=== PATIENT | female | born 1990 | race Caucasian/White ===

== ENCOUNTER → 2020-02-03 07:41 | Outpatient (CLI) | payer OTHER, SELFPAY ==
--- NOTE | 2020-02-03 | DI.MRI.S_ITS ---
PROCEDURE: MR KNEE LT WO CON INDICATIONS: Chronic instability of knee, left knee TECHNIQUE: Noncontrast sagittal PD fast spin echo and T2 fast spin echo with fat saturation, sagittal 3-D FLASH with fat saturation; coronal T1 spin echo and PD fast spin echo with fat saturation, and axial PD fast spin echo with fat saturation through the knee. COMPARISON: None. FINDINGS: Image quality: Excellent. Menisci: The medial and lateral menisci demonstrate normal morphology and internal signal. The meniscal root ligaments appear intact. Cruciate ligaments: The anterior and posterior cruciate ligaments appear intact. Medial structures: The medial collateral ligament appears intact. The posterior oblique ligament, semimembranosus tendon insertions, oblique popliteal ligament, and meniscocapsular junction appear intact. Visualized portions of the pes anserinus tendons appear normal. No abnormal bursal fluid. Lateral structures: The lateral collateral ligament, long and short heads of the biceps femoris tendon appear intact. The popliteus tendon appears normal; the popliteofibular ligament appears intact. The posterosuperior and anteroinferior popliteomeniscal fascicles appear intact. The arcuate and fabellofibular ligaments appear intact, on either side of the lateral inferior geniculate artery. Iliotibial band appears normal. Anterior structures: The quadriceps and patellar tendons appear intact. Patellar alignment is normal. No femoral trochlear dysplasia or ventral trochlear prominence. No edema in the infrapatellar fat pad. Bones and cartilage: No bone marrow contusions or fractures. The cartilage of the medial and lateral femorotibial compartments, as well as the patellofemoral compartment, appears normal in thickness. Joint space: There is physiologic knee joint fluid. 4 mm loose body is noted in tibiotalar joint just lateral to the anterior cruciate ligament. No Bermudez's cyst. Normal appearing synovial plicae are incidentally noted. IMPRESSION: 1. Suggestion of a 4 mm loose body in lateral femoral tibial compartment just lateral to the anterior cruciate ligament. No fracture or dislocation. No marrow edema. 2. Cruciate ligaments are intact. 3. No evidence of focal meniscal tear. Dictated by: Daniel Leggett M.D. on 02/03/2020 at 10:40 Approved by: Daniel Leggett M.D. on 02/03/2020 at 10:50
== END ==
PROVIDERS: PCP Nurse Practitioner Family; Referring Provider Nurse Practitioner Family; Visit Provider Nurse Practitioner Family
DX: M25.562 Pain in left knee (principal); M23.52 Chronic instability of knee, left knee
CPT/HCPCS: 73721

== ENCOUNTER → 2020-11-03 11:04 | Outpatient (CLI) | payer SELFPAY ==
[2020-11-03 11:26] LABS: Specimen Label KIT TEST
== END ==
PROVIDERS: Referring Provider Advanced Practice Midwife; Visit Provider Advanced Practice Midwife
DX: Z34.01 Encounter for supervision of normal first pregnancy, first trimester (principal)
CPT/HCPCS: 36415

== ENCOUNTER 2021-04-11 16:27 | Outpatient (CLI) | payer OTHER, SELFPAY ==
--- NOTE | 2021-04-11 17:15 | DI.US.S_ITS ---
PROCEDURE: US ABDOMEN COMPLETE INDICATIONS: LEFT SIDE PAIN TECHNIQUE: Real-time scanning was performed of the abdominal and retroperitoneal organs, with image documentation. COMPARISON: None. FINDINGS: Liver: Prominent size. Echogenic focus in the anterior right lobe of the liver measuring 1.3 x 0.9 x 0.9 cm. Suspect a hemangioma. Gallbladder: Nondilated. No stones or sludge. Small gallbladder polyp measuring at 3.3 mm is suspected at the posterior wall. Normal gallbladder wall thickness. No pericholecystic fluid. Negative sonographic Salazar's sign. Biliary ducts: Intrahepatic bile ducts are non-dilated. Common hepatic duct measures 3.4 mm. Normal is 6-7 mm or less in diameter, or 10 mm or less post-cholecystectomy. Pancreas: Not visualized. Spleen: Spleen is normal in size and homogeneous in echotexture. Measures 11.3 cm. Kidneys: Kidneys are normal in size and echotexture. Right kidney measures 11.7 cm long; left kidney measures 10.3 cm long. No hydronephrosis or nephrolithiasis. No solid masses. Aorta: Not visualized. Iliacs: Not visualized. IVC: Intrahepatic inferior vena cava is patent. Miscellaneous: No free abdominal fluid. Gravid uterus. heart rate 135 bpm. IMPRESSION: Exam is somewhat limited due to acoustic windows. 1. No acute cholecystitis. Suspect small gallbladder polyp measuring 0.3 cm. 2. No hydronephrosis. 3. Echogenic focus in the right lobe of the liver measuring 1.3 cm. This most likely represents a benign hemangioma. This could be more definitively characterized with multiphase liver CT or MRI with IV contrast. 4. heart rate 135 bpm. Dictated by: Portillo Barcenas M.D. on 04/11/2021 at 19:41 Approved by: Portillo Barcenas M.D. on 04/11/2021 at 19:45
--- NOTE | 2021-04-11 17:43 | P.TNLD_ITS ---
Visit Information Visit Information Date of evaluation: 04/11/21 Primary OB Provider: Tamela Horner On-call OB Provider: Rukhsana Tucker Comments/Additional reasons for admission: 28 at 32 weeks and 5 days with complaints left flank pain since 2:00 a.m. today as well as several days of intermittent right subscapular pain. Pain may be associated with eating as it tends to come on in the evening after dinner. The left-sided pain today is sharp and goes around the side of her belly. She does urinate frequently but has not notice blood. Denies leaking, bleeding or contractions. Good movement. She does not have a history of nephrolithiasis or cholelithiasis. No fevers or recent illnesses. complicated by new diagnosis of gestational diabetes. Fasting sugars have been as high as 97 though typically under 95. 2 hour postprandial sugars have generally been under 120 with a few elevated sugars. care with Tamela Horner CNM. Vital Signs Vital Signs: Temperature 35.9? blood pressure 118/66 heart rate 80 PFSH Surgical History History of third molar tooth extraction Status post loop electrosurgical excision procedure (LEEP) of cervix (07/12/09) Social History Smoking Status: Former smoker Exam HENMT Head: normal to inspection Ears: hearing grossly normal bilaterally and external ears normal Resp Effort & Inspection: normal respiratory effort Auscultation: clear to auscultation bilaterally Cardio Rate: regular rate Rhythm: regular rhythm Heart Sounds: S1 normal and S2 normal GI Inspection: other (Gravid) Other: No CVA tenderness Objective Labs Result Diagrams: 04/11/21 18:03 04/11/21 18:03 Evaluation Evaluation Baseline heart rate: 130 Variability: Moderate (11-25) monitor accelerations: Present Monitor Decelerations: Absent Category of Tracing: Reactive Diagnosis, Plan/Disposition Final Diagnosis (1) 32 weeks gestation of : Status: Acute (2) Left flank pain: Status: Acute Plan/Disposition Plan: 30-year-old 32 weeks and 5 days gestation with left flank pain today and intermittent right subscapular pain. Discussed with patient possible nephroli thiasis or cholelithiasis. NST reactive and no contractions noted the monitor. CBC, CMP and UA all reassuring though she did have some ketones in her urine. Abdominal ultrasound did not show cholelithiasis or nephrolithiasis. She did have a small gallbladder polyp not likely contributing to her symptoms as well as an incidental liver hemangioma. Pain likely musculoskeletal from the . Patient was encouraged to increase hydration and follow up with her radiologic therapist. OB Disposition: home
[2021-04-11 18:16] LABS: Add Manual Diff / Slide Review NO; Basophils Absolute Auto 0 /uL (0-100); Basophils Percent Auto 0.4 % (0-2); Eosinophils Absolute Auto 100 /uL (0-450); Hematocrit 35.2 % (36-46); Lymphocytes Absolute Auto 2900 /uL (1100-4500); Mean Corpuscular HGB Conc 34.2 % (30-36); Mean Corpuscular Hemoglobin 29.7 PG (26-34); Mean Corpuscular Volume 86.8 fL (80-100); Monocytes Absolute Auto 1000 /uL (0-900); Monocytes Percent Auto 9.5 % (3-14); Neutrophils Absolute Auto 6300 /uL (1500-7000); Neutrophils Percent Auto 61.1 % (50-75); Platelet Count 276 X10^3/uL (150-400); Red Blood Cell Count 4.06 X10^6/uL (4.0-5.2); Red Cell Distribution Width 13.6 % (11.6-14.8); White Blood Cell Count 10.3 X10^3/uL (4.5-11.0)
[2021-04-11 18:16] LABS: Appearance Urine UA CLEAR; Bilirubin Urine UA NEGATIVE (NEGATIVE); Color Urine UA YELLOW; Glucose Urine UA NEGATIVE (Negative); Ketones Urine UA TRACE (NEGATIVE); Leukocyte Esterase Urine UA TRACE (NEGATIVE); Nitrite Urine UA NEGATIVE (Negative); Occult Blood Urine UA TRACE-LYSED (Negative); Protein Urine UA NEGATIVE (Negative); Urobilinogen Urine UA 0.2 E.U./dL (0.2)
[2021-04-11 18:20] LABS: pH Urine UA 6.5 (4.5-8.0)
[2021-04-11 18:32] LABS: Bacteria Urine Few (2-10); Culture Indicated Urine Cult Not Indicated; RBC Urine 0-1/HPF (0-5/HPF); Squamous Epithelial Cell Urine 1-5 /HPF (0-5/HPF); WBC Urine 1-5/HPF (0-5/HPF)
[2021-04-11 19:22] LABS: Alanine Aminotransferase 11 IU/L (<35); Albumin 3.4 g/dL (3.5-5.0); Albumin Globulin Ratio 1.2 (1.0-2.8); Alkaline Phosphatase 108 U/L (38-126); Aspartate Aminotransferase 18 IU/L (14-36); BUN Creatinine Ratio 23.7 (6-22); Bilirubin Total 0.2 mg/dL (0.2-1.3); Blood Urea Nitrogen 9 mg/dL (7-17); Calcium 9.2 mg/dL (8.4-10.2); Carbon Dioxide 20 mmol/L (22-32); Chloride 104 mmol/L (98-107); Estimated Glomerular Filt Rate > 60.0 mL/min (>60); Globulin 2.9 g/dL (1.7-4.1); Glucose 90 mg/dL (70-100); HEMOLYSIS < 15 (0-50); Potassium 4.1 mmol/L (3.4-5.1); Sodium 131 mmol/L (137-145); Total Protein 6.3 g/dL (6.3-8.2)
== END 2021-04-11 19:32 | disposition home or self-care (01) ==
LOC: LABOR 19:28 → OB 04-13 07:11
PROVIDERS: PCP Internal Medicine; Referring Provider Family Medicine; Visit Provider Family Medicine
DX: O26.893 Other specified pregnancy related conditions, third trimester (principal); R10.9 Unspecified abdominal pain; O24.419 Gestational diabetes mellitus in pregnancy, unspecified control; Z3A.32 32 weeks gestation of pregnancy
CPT/HCPCS: 36415; 59025; 76700; 80053; 81001; 85025; G0378; G0379

== ENCOUNTER 2021-10-31 11:04 | Emergency (ER) | payer OTHER, MEDICAID, SELFPAY ==
[2021-10-31 11:37] VITALS: BP 123/70; PULSE 93; RESP 18; TEMP 36.4; O2SAT 97; BMI 30.3
--- NOTE | 2021-10-31 11:49 | DI.RAD.S_ITS ---
PROCEDURE: XR LUMBAR SPINE 2-3V INDICATIONS: suspected lumbar injury TECHNIQUE: 2 views of the lumbar spine were acquired. COMPARISON: [facility], , L-SPINE 2-3 VIEWS, 09/18/2006, 14:34. FINDINGS: Bones: 5 [id number] vertebrae are present. There is trace retrolisthesis L5 on S1. Mild to moderate disc and foraminal narrowing is present L5-S1 No vertebral body compression fractures. No suspicious bony lesions. Soft tissues: Overlying bowel gas pattern is normal. No suspicious soft tissue calcifications. IMPRESSION: No visualized acute fracture or dislocation. However, if clinical concern and/or pain persist, short interval imaging followup in 7-10 days is recommended, as occult injury cannot be definitively excluded. Dictated by: Sonia Villeda M.D. on 10/31/2021 at 12:05 Approved by: Sonia Villeda M.D. on 10/31/2021 at 12:06
--- NOTE | 2021-10-31 14:52 | ED.BACK ---
HPI - Back Pain/Injury <Yordan Petersen PA-C - Last Filed: 10/31/21 20:20> General Chief Complaint: Back Pain/Injury Stated Complaint: Back pain since 10/14- worsening Time Seen by Provider: 10/31/21 14:32 Source: patient History of Present Illness HPI Narrative: Patient is a 30-year-old female who presents to the emergency department for an evaluation of back pain. Patient explains that on 10/14/2021 she felt a pop in her lower back while removing clothes from her package drier. She states that since that time she has been experiencing low back pain with intermittent tingling sensation down her right leg. She explains that she has followed up with her primary care provider who has scheduled an appointment for physical therapy for her on 11/17/2021. Patient states that she is having worsening pain and is having difficulty sleeping due to her discomfort. She denies any fever, chills, chest pain, cough, shortness of breath, nausea, vomiting, diarrhea, constipation, abdominal pain, dysuria, hematuria, bladder incontinence, bowel incontinence, saddle anesthesia, or any other concerning symptoms. No further concerns were voiced at this time. Related Data Home Medications Medication Instructions Recorded Confirmed norethindrone (contraceptive) 0.35 0.35 mg PO DAILY 09/06/21 09/06/21 mg tablet Previous Rx's Medication Instructions Recorded baclofen 20 mg tablet 20 mg PO TID 10 days #30 tabs 10/31/21 methylprednisolone 4 mg tablets in See Rx Instructions PO .COMPLEX 10/31/21 a dose pack (Medrol (Niraj)) #21 ea Allergies Allergy/AdvReac Type Severity Reaction Status Date / Time Penicillins [PENICILLINS] AdvReac Unknown CAUSES Unverified 06/13/21 10:16 AGITATION Review of Systems <Yordan Petersen PA-C - Last Filed: 10/31/21 20:20> Constitutional Constitutional: Denies chills, Denies fatigue, Denies fever(s), Denies frequent falls, Denies lethargy and Denies weakness ENT Ears, Nose, Mouth, and Throat: Denies neck pain Cardiovascular Cardiovascular: Denies chest pain, Denies irregular heart rhythm, Denies lightheadedness, Denies palpitations, Denies dyspnea, Denies dyspnea on exertion and Denies orthopnea Respiratory Respiratory: Denies dyspnea and Denies dyspnea on exertion Gastrointestinal Gastrointestinal: Denies abdominal pain, Denies change in bowel habits, Denies diarrhea, Denies nausea and Denies vomiting Genitourinary Genitourinary: Denies hematuria, Denies flank pain, Denies urinary incontinence and Denies urinary urgency Musculoskeletal Musculoskeletal: Reports back pain, Denies muscle weakness, Denies neck pain, Denies numbness and Denies tingling Integumentary/Breasts Skin/Breast: Denies pruritus, Denies erythema, Denies rash and Denies wounds Neurologic Neurologic: Denies frequent falls, Denies numbness, Denies tingling and Denies weakness Endocrine Endocrine: Denies fatigue and Denies palpitations Patient History <Yordan Petersen PA-C - Last Filed: 10/31/21 20:20> Surgical History History of third molar tooth extraction Status post loop electrosurgical excision procedure (LEEP) of cervix (07/12/09) Social History Smoking Status: Former smoker Smoking Status: Former smoker alcohol intake frequency: a few times a month Alcohol type: wine Substance Use Type: does not use Exam <Yordan Petersen PA-C - Last Filed: 10/31/21 20:20> Narrative Exam Narrative: GENERAL: 30 year old patient appears stated age. Well-developed patient, in no acute distress. HEAD: Atraumatic. Normocephalic. EYES: Pupils equal round and reactive. Extraocular motions intact. No scleral icterus. No injection or drainage. ENT: Nose without bleeding, purulent drainage. Throat without erythema, tonsillar hypertrophy or exudate. Airway patent. NECK: Trachea midline. Non tender CARDIOVASCULAR: Regular rate and rhythm without murmurs, gallops, or rubs. RESPIRATORY: Clear to auscultation. Breath sounds equal bilaterally. No wheezes, rales, or rhonchi. GASTROINTESTINAL: Abdomen soft, non-tender, nondistended. EXTREMITIES: No edema or joint tenderness. Good sensation light touch appreciated throughout the bilateral upper and lower extremities. Gross motor function intact throughout the bilateral upper and lower extremities. BACK: Nontender without deformity or crepitance. No flank tenderness. NEURO: AOx3. SKIN: No rash or erythema of visible areas Initial Vital Signs Initial Vital Signs: Vital Signs Temperature 97.6 F 10/31/21 11:37 Pulse Rate 93 H 10/31/21 11:37 Respiratory Rate 18 10/31/21 11:37 Blood Pressure 123/70 10/31/21 11:37 Pulse Oximetry 97 10/31/21 11:37 Oxygen Delivery Method 10/31/21 11:37 <Ariana Peace DO - Last Filed: 11/06/21 12:42> Initial Vital Signs Initial Vital Signs: Vital Signs Temperature 97.6 F 10/31/21 11:37 Pulse Rate 93 H 10/31/21 11:37 Respiratory Rate 18 10/31/21 11:37 Blood Pressure 123/70 10/31/21 11:37 Pulse Oximetry 97 10/31/21 11:37 Oxygen Delivery Method 10/31/21 11:37 Course <Yordan Petersen PA-C - Last Filed: 10/31/21 20:20> Course Course Narrative: Lumbar spine x-ray obtained. No acute abnormality identified, foraminal narrowing noted at the area L5-S1. Orders Ordered: ED Orders 10/31/21 11:49 XR lumbar spine 2-3V Stat Vital Signs Vital signs: Vital Signs - 8 hr 10/31/21 11:37 Temperature 97.6 F Pulse Rate 93 H Respiratory Rate 18 Blood Pressure 123/70 Pulse Oximetry 97 Oxygen Delivery Method Room Air <Ariana Peace DO - Last Filed: 11/06/21 12:42> Orders Ordered: ED Orders 10/31/21 11:49 XR lumbar spine 2-3V Stat Vital Signs Vital signs: Vital Signs - 8 hr 10/31/21 11:37 Temperature 97.6 F Pulse Rate 93 H Respiratory Rate 18 Blood Pressure 123/70 Pulse Oximetry 97 Oxygen Delivery Method Room Air MDM - Back Pain/Injury <ADELA Madrigal Last Filed: 10/31/21 20:20> Imaging Data Lumbar spine x-ray: Radiologist's Impression: PROCEDURE:? XR LUMBAR SPINE 2-3V ? INDICATIONS:? suspected lumbar injury ? TECHNIQUE:? 2 views of the lumbar spine were acquired.? ? COMPARISON:? [facility], , L-SPINE 2-3 VIEWS, 09/18/2006, 14:34. ? FINDINGS:? ? Bones:? 5 [id number] vertebrae are present.? There is trace retrolisthesis L5 on S1. ?Mild to moderate disc and foraminal narrowing is present L5-S1? No vertebral body compression fractures.? No suspicious bony lesions.? ? Soft tissues:? Overlying bowel gas pattern is normal.? No suspicious soft tissue calcifications.? ? ? IMPRESSION:? No visualized acute fracture or dislocation. However, if clinical concern and/or pain persist, short interval imaging followup in 7-10 days is recommended, as occult injury cannot be definitively excluded. ? ? Dictated by: Sonia Villeda M.D. on 10/31/2021 at 12:05 ? ? Approved by: Sonia Villeda M.D. on 10/31/2021 at 12:06 ? MDM Narrative Medical decision making narrative: Differential diagnosis to consider but not limited to fracture versus dislocation versus sprain versus strain versus lumbar stenosis versus spondylolisthesis. I discussed results of x-ray imaging with patient and informed her that there is no sign of acute abnormalities such as fracture or dislocation. I did inform her that there was signs of foraminal narrowing at the area of L5-S1. I discussed plan to provide the patient with a Medrol Dosepak and muscle relaxer to help alleviate her discomfort. Patient states she is scheduled to visit with physical therapy on 11/17/2021. I encouraged her to follow up with primary care for further evaluation and management. Patient expresses understanding and agrees to plan. Strict return precautions were discussed with the patient prior to discharge. Discharge Plan Departure Patient Disposition: Home Clinical Impression: Low back pain Instructions: DI for Low Back Pain Activity Restrictions/Additional Instructions: *You have been diagnosed with low back pain *What to do: *Please continue to take your regular medications as directed. [X] New medication prescriptions sent to your pharmacy: Medrol pack, baclofen-[facility] [ ] New medication written as a paper prescription [ ] No new medications given You were evaluated in the emergency department today for low back pain. X-ray imaging obtained in the emergency department today did not show signs of acute bony abnormality such as fracture or dislocation. There is signs of foraminal narrowing at the area of L5-S1. I have prescribed you a course of medications that should help to alleviate her discomfort and sent these prescriptions to her preferred pharmacy. Please follow-up with your primary care provider for further evaluation and management. Do not hesitate to return to the emergency department if you experience worsening pain, persistent numbness and tingling in the lower extremities, loss of bowel control, loss of bladder control, or any other concerning symptoms. *Please follow up with your primary care provider in 2-3 days, call for an appointment. Let them know you were seen in the Emergency Department and that we ask that you be seen in follow up. We will electronically transmit a record of today's note if your PCP is in our system *If you do not have a primary care provider please contact the [facility] Resource line at [phone]. They will ask some questions about your medical history and help get you set up with a doctor in the community. *Return to Emergency Department if you should have any new, worsening or concerning symptoms, such as fever greater than 101 F, shaking chills, worsening pain, persistent vomiting or other bothersome symptoms. Prescriptions: New methylprednisolone [Medrol (Niraj)] 4 mg tablets,dose pack See Rx Instructions .ROUTE .COMPLEX Qty: 21 0RF Rx Instructions: orally per package directions baclofen 20 mg tablet 20 mg PO TID 10 Days Qty: 30 0RF No Action norethindrone (contraceptive) 0.35 mg tablet 0.35 mg PO DAILY Referrals: Enma Burgess ARNP [Primary Care Provider] - Visit Report Forms: Patient Portal/API <Ariana Peace DO - Last Filed: 11/06/21 12:42> [place] [facility] Attending Katty Attestation: I was immediately available in the department for consultation. Documentation has been reviewed.
== END 2021-10-31 15:10 | disposition home or self-care (01) ==
PROVIDERS: Emergency Provider Physician Assistant; PCP Internal Medicine
DX: M54.50 Low back pain, unspecified (principal)
CPT/HCPCS: 72100; 99281; 99283

== ENCOUNTER 2021-12-18 11:42 | Emergency (ER) | payer OTHER, MEDICAID, SELFPAY ==
[2021-12-18 12:15] VITALS: BP 126/82; PULSE 81; RESP 18; TEMP 36.3; O2SAT 96
--- NOTE | 2021-12-18 12:56 | DI.RAD.S_ITS ---
PROCEDURE: XR TOE RT MIN 2V INDICATIONS: great toe - r/o osteo TECHNIQUE: 3 views of the right toe(s) acquired. COMPARISON: None. FINDINGS: Bones: No fractures or dislocations. No suspicious bony lesions. No plain film evidence of osteomyelitis of the right great toe. Soft tissues: No suspicious soft tissue densities. IMPRESSION: No plain film evidence of osteomyelitis of the right great toe. Dictated by: Chapo Page M.D. on 12/18/2021 at 12:23 Approved by: Chapo Page M.D. on 12/18/2021 at 12:24
--- NOTE | 2021-12-18 12:56 | DI.RAD.S_ITS ---
PROCEDURE: XR TOE LT MIN 2V INDICATIONS: great toe - r/o osteo TECHNIQUE: 3 views of the left toe(s) acquired. COMPARISON: None. FINDINGS: Bones: No fractures or dislocations. No suspicious bony lesions. No plain film evidence of osteomyelitis of the left great toe. Soft tissues: No suspicious soft tissue densities. IMPRESSION: No plain film evidence of osteomyelitis of the left great toe. Dictated by: Chapo Page M.D. on 12/18/2021 at 12:25 Approved by: Chapo Page M.D. on 12/18/2021 at 12:27
--- NOTE | 2021-12-18 12:57 | ED_ITS ---
HPI - Skin/Abscess/Foreign Bdy <DEBO George - Last Filed: 12/18/21 13:55> General Chief complaint: Skin/Abscess/Foreign Body Stated complaint: Infection in toes from pedicure Time Seen by Provider: 12/18/21 12:10 Source: patient Mode of arrival: Ambulatory Limitations: no limitations History of Present Illness HPI narrative: 31-year-old female, former smoker, presents to the emergency department with complaints of bilateral great toe pain secondary to bilateral ingrown toenails. Patient reports that she had a pedicure on November 07 and went in to see Dr. Del Angel on December 07 and where he conducted matrixectomy he is on both toes on both visits. Patient was prescribed Keflex at that time but symptoms did not fully resolve. Patient saw Dr. Burgess on December 14 when she was prescribed clindamycin. Patient reports that she has been doing warm water soaks 3 times a day and coating her toes with antibiotic ointment in between soaks. 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 Patient states that she has been taking 2 pain pills each evening to help her sleep. Related Data Home Medications Medication Instructions Recorded Confirmed norethindrone (contraceptive) 0.35 0.35 mg PO DAILY 09/06/21 09/06/21 mg tablet Previous Rx's Medication Instructions Recorded methylprednisolone 4 mg tablets in See Rx Instructions PO .COMPLEX 10/31/21 a dose pack (Medrol (Niraj)) #21 ea mupirocin 2 % topical ointment 1 applic topical BID cellulitis 12/18/21 #22 grams Allergies Allergy/AdvReac Type Severity Reaction Status Date / Time Penicillins [PENICILLINS] AdvReac Unknown CAUSES Verified 12/18/21 12:18 AGITATION Review of Systems <DEBO George - Last Filed: 12/18/21 13:55> Review of Systems Narrative: Narrative: GENERAL: Denies chills, fatigue, fever, sweats. See HPI HEENT: Denies sinus pain, ear pain, sore throat, difficulty swallowing, dizziness. RESPIRATORY: Denies dyspnea, cough, wheezing, sputum. CARDIOVASCULAR: Denies chest pain, palpitations, edema. GASTROINTESTINAL: Denies nausea, vomiting, abdominal pain, diarrhea, constipation. : Denies dysuria, frequency, incontinence, hematuria, urinary retention, flank pain. MSK: Denies weakness, joint pain, or bony pain. SKIN: Endorses bilateral great toe pain from bilateral matrixectomy. NEUROLOGIC: Denies weakness, dizziness, headache, numbness, confusion. PSYCHIATRIC: No concerning psychosocial issues. Patient History <DEBO George - Last Filed: 12/18/21 13:55> Surgical History History of third molar tooth extraction Status post loop electrosurgical excision procedure (LEEP) of cervix (07/12/09) Social History Smoking Status: Former smoker Smoking Status: Former smoker alcohol intake frequency: a few times a month Alcohol type: wine Substance Use Type: does not use Exam <DEBO George - Last Filed: 12/18/21 13:55> Narrative Exam Narrative: Exam Narrative: GENERAL: This is a well-nourished, well-developed patient, in no acute distress HEAD: Atraumatic. Normocephalic. EYES: Pupils equal round and reactive. Extraocular motions intact. No scleral icterus, injection or drainage. MSK: Moves all extremities. Normal range of motion, no clubbing or edema. Neurovascularly intact. NEURO: A&O x 3. SKIN: Bilateral great toes with healing tissue on both sides. No redness, red streaking, or purulent discharge. Initial Vital Signs Initial Vital Signs: Vital Signs Temperature 97.3 F L 12/18/21 12:15 Pulse Rate 81 12/18/21 12:15 Respiratory Rate 18 12/18/21 12:15 Blood Pressure 126/82 12/18/21 12:15 Pulse Oximetry 96 12/18/21 12:15 Oxygen Delivery Method 12/18/21 12:15 Reviewed <Sunitha Buck DO - Last Filed: 12/19/21 07:38> Initial Vital Signs Initial Vital Signs: Vital Signs Temperature 97.3 F L 12/18/21 12:15 Pulse Rate 81 12/18/21 12:15 Respiratory Rate 18 12/18/21 12:15 Blood Pressure 126/82 12/18/21 12:15 Pulse Oximetry 96 12/18/21 12:15 Oxygen Delivery Method 12/18/21 12:15 Course <DEBO George - Last Filed: 12/18/21 13:55> Orders Ordered: ED Orders 12/18/21 12:56 XR toe LT min 2V Stat XR toe RT min 2V Stat Vital Signs Vital signs: Vital Signs - 8 hr 12/18/21 12:15 Temperature 97.3 F L Pulse Rate 81 Respiratory Rate 18 Blood Pressure 126/82 Pulse Oximetry 96 Oxygen Delivery Method Room Air <Sunitha Buck DO - Last Filed: 12/19/21 07:38> Orders Ordered: ED Orders 12/18/21 12:56 XR toe LT min 2V Stat XR toe RT min 2V Stat Vital Signs Vital signs: Vital Signs - 8 hr 12/18/21 12:15 Temperature 97.3 F L Pulse Rate 81 Respiratory Rate 18 Blood Pressure 126/82 Pulse Oximetry 96 Oxygen Delivery Method Room Air MDM - Skin/Abscess/Foreign Bdy <DEBO George - Last Filed: 12/18/21 13:55> Differential Diagnosis Differential diagnosis: Likely other (resolving cellulitis) Imaging Data Extremity x-ray #1: Radiologist's Impression: [address] [address] XRay Report Signed Patient: Etta Vincent MR#: [id number] : 1990 Acct:[id number] Age/Sex: 31 / F Date of Service: 12/18/21 Loc: ED Accession Number: [id number] ?? Procedure: XR toe RT min 2V Ordering Provider: Miguel Saha PROCEDURE:? XR TOE RT MIN 2V ? INDICATIONS:? great toe - r/o osteo ? TECHNIQUE:? 3 views of the right toe(s) acquired.? ? COMPARISON:? None. ? FINDINGS:? ? Bones:? No fractures or dislocations.? No suspicious bony lesions.? No plain film evidence of osteomyelitis of the right great toe.? ? Soft tissues:? No suspicious soft tissue densities.? ? IMPRESSION:? No plain film evidence of osteomyelitis of the right great toe. ? ? Dictated by: Chapo Page M.D. on 12/18/2021 at 12:23 ? ? Approved by: Chapo Page M.D. on 12/18/2021 at 12:24 ? Extremity x-ray #2: Radiologist's Impression: [address] [address] XRay Report Signed Patient: Etta Vincent MR#: [id number] : 1990 Acct:[id number] Age/Sex: 31 / F Date of Service: 12/18/21 Loc: ED Accession Number: [id number] ?? Procedure: XR toe LT min 2V Ordering Provider: Miguel Saha PROCEDURE:? XR TOE LT MIN 2V ? INDICATIONS:? great toe - r/o osteo ? TECHNIQUE:? 3 views of the left toe(s) acquired.? ? COMPARISON:? None. ? FINDINGS:? ? Bones:? No fractures or dislocations.? No suspicious bony lesions.? No plain film evidence of osteomyelitis of the left great toe.? ? Soft tissues:? No suspicious soft tissue densities.? ? IMPRESSION:? No plain film evidence of osteomyelitis of the left great toe. ? ? Dictated by: Chapo Page M.D. on 12/18/2021 at 12:25 ? ? Approved by: Chapo Page M.D. on 12/18/2021 at 12:27 ? MDM Narrative Medical decision making narrative: 31-year-old female who had bilateral great toes matrixectomy 11 days ago. Patient already completed a round cephalexin and is now 4 days into a 10 day course clindamycin. Patient is concerned that she may be developing osteomyelitis, x-rays obtained to rule out. X-ray results. Will prescribe mupirocin ointment to be used twice daily in addition to daily soaks 2-3 times daily. Patient has received 53 oxycodone pills in the last 11 days and will therefore not be prescribing any more pain medication. Discussed plan of care and return precautions with patient, who is agreeable to course of action. Discharge Plan Departure Patient Disposition: Home Clinical Impression: Cellulitis Instructions: DI for Cellulitis -- Adult Activity Restrictions/Additional Instructions: *You have been diagnosed with resolving cellulitis of bilateral great toes. The x-ray was normal and does not show any signs of osteomyelitis. He should continue taking your prescribed oral antibiotics in its entirety. We will change or topical antibiotics to mupirocin to be used twice daily. Please continue with twice daily warm water soaks to facilitate drainage. Please feel free to come back to the emergency department if symptoms worsen. *What to do: *Please continue to take your regular medications as directed. [ ] New medication prescriptions sent to your pharmacy: [ ] [x ] New medication written as a paper prescription [ ] No new medications given *Please follow up with your primary care provider in 2-3 days, call for an appointment. Let them know you were seen in the Emergency Department and that we ask that you be seen in follow up. We will electronically transmit a record of today's note if your PCP is in our system *If you do not have a primary care provider please contact the [facility] Resource line at [phone]. They will ask some questions about your medical history and help get you set up with a doctor in the community. ? Return to ER if you should have any new, worsening or concerning symptoms, such as worsening pain, severe headache, confusion, chest pain, difficulty breathing, fever greater than 101 F, shaking chills, persistent vomiting to the point that you cannot drink fluids, or other new or worsening symptoms. Prescriptions: New mupirocin 2 % ointment 1 applic topical BID Qty: 22 0RF Rx Instructions: Apply to affected sites twice daily. No Action norethindrone (contraceptive) 0.35 mg tablet 0.35 mg PO DAILY methylprednisolone [Medrol (Niraj)] 4 mg tablets,dose pack See Rx Instructions .ROUTE .COMPLEX Qty: 21 0RF Rx Instructions: orally per package directions Referrals: Enma Burgess ARNP [Primary Care Provider] - Visit Report Forms: Patient Portal/API <Sunitha Buck DO - Last Filed: 12/19/21 07:38> [place] ED Attending Katty Attestation: I was immediately available in the department for consultation. Documentation has been reviewed. I agree with assessment and plan.
== END 2021-12-18 14:10 | disposition home or self-care (01) ==
PROVIDERS: Emergency Provider Registered Nurse; PCP Internal Medicine
DX: L03.032 Cellulitis of left toe (principal); L03.031 Cellulitis of right toe
CPT/HCPCS: 73660; 99283

== ENCOUNTER 2022-07-24 16:01 | Emergency (ER) | payer OTHER, MEDICAID, SELFPAY ==
[2022-07-24 16:13] VITALS: BP 188/62; PULSE 90; RESP 16; TEMP 36.1; O2SAT 99; BMI 30.3
[2022-07-24] MEDS: PROPARACAINE 0.5% OPHTH SOL 1 DROPS EYE-RIGHT (18:51)
--- NOTE | 2022-07-24 19:01 | DI.CT.S_ITS ---
PROCEDURE: CT HEAD/BRAIN WO CON INDICATIONS: Vision changes with headache TECHNIQUE: Noncontrast 4.5 mm thick angled axial sections acquired from the foramen magnum to the vertex, with coronal and sagittal reformats. For radiation dose reduction, the following was used: automated exposure control, adjustment of mA and/or kV according to patient size. COMPARISON: [facility], CT, HEAD WITHOUT CONTRAST, 09/25/2007, 19:48. FINDINGS: Image quality: Excellent. CSF spaces: Basal cisterns are patent. No extra-axial fluid collections. Ventricles are normal in size and shape. Brain: No midline shift. No intracranial masses or hemorrhage. Chauhan-white matter interface is normal. Skull and face: Calvarium and visualized facial bones are intact, without suspicious lesions. Sinuses: Visualized sinuses and mastoids are clear. IMPRESSION: 1. No acute intracranial abnormalities. Dictated by: Gerard Bliss M.D. on 07/24/2022 at 19:34 Approved by: Gerard Bliss M.D. on 07/24/2022 at 19:35
--- NOTE | 2022-07-24 19:01 | ED.GENADULT ---
HPI - General Adult General Chief complaint: Eye Problems Stated complaint: Dark spots/spots in eyes, lightheaded, pressure x2 Time Seen by Provider: 07/24/22 18:42 Source: patient Mode of arrival: Family Vehicle Limitations: no limitations History of Present Illness HPI narrative: Patient is a 31-year-old female who is here for evaluation of 4 days of what she states is pressure behind her right eye, having episodes of lightheadedness, dark spots and fussiness that she seems to isolate to the right lower portion of her right eye. She was seen by her primary doctor who told that it may just be stress on her eye. No balance issues. No sinus congestion. No sore throat. Does wear corrective lenses. Her last eye doctor appointment was 2 years ago. Related Data Home Medications Medication Instructions Recorded Confirmed norethindrone (contraceptive) 0.35 0.35 mg PO DAILY 09/06/21 09/06/21 mg tablet Previous Rx's Medication Instructions Recorded vitamin-ferrous fumarate 1 tab PO DAILY #90 tabs 02/16/22 28 mg iron-folic acid 800 mcg tablet ( Vitamins with Minerals) Allergies Allergy/AdvReac Type Severity Reaction Status Date / Time Penicillins [PENICILLINS] AdvReac Unknown CAUSES Verified 07/24/22 16:16 AGITATION Review of Systems Constitutional Constitutional: Reports system reviewed and no additional complaints, except as documented Eyes Eyes: Reports system reviewed and no additional complaints, except as documented ENT Ears, Nose, Mouth, and Throat: Reports system reviewed and no additional complaints, except as documented Neurologic Neurologic: Reports system reviewed and no additional complaints, except as documented Patient History Surgical History History of third molar tooth extraction Status post loop electrosurgical excision procedure (LEEP) of cervix (07/12/09) Social History Smoking Status: Former smoker Smoking Status: Former smoker alcohol intake frequency: a few times a month Alcohol type: wine Substance Use Type: does not use Exam Initial Vital Signs Initial Vital Signs: Vital Signs Temperature 96.9 F L 07/24/22 16:13 Pulse Rate 90 07/24/22 16:13 Respiratory Rate 16 07/24/22 16:13 Blood Pressure 188/62 H 07/24/22 16:13 Pulse Oximetry 99 07/24/22 16:13 Oxygen Delivery Method Room Air 07/24/22 16:13 Const General: cooperative, comfortable and No ill appearing [facility] Head: normal to inspection and normocephalic Face and sinus: normal facial exam Mouth: oral mucosae normal Eyes General: Yes appearance normal, both eyes and all related structures Periorbital: periorbital findings normal Eyelids: eyelids normal Pupils: PERRL EOM: EOM intact bilaterally Other: Interocular pressure right eye 22 Interocular pressure left eye 20 Visual portillo are intact except the patient reports some fuzziness to the nasal aspect of the lower portion of the right eye Resp Effort & Inspection: normal respiratory effort Skin General: no rashes or lesions noted Neuro General: patient alert and moves all extremities Cranial Nerves: CN's II-XI intact bilaterally Cognition: normal cognition Speech: speech normal Gait: normal gait Extrem General: capillary refill normal Course Orders Ordered: Discontinued Medications Proparacaine HCl (Proparacaine 0.5% Ophth Karina) 1 drops EYE-RIGHT NOW ONE Stop: 07/24/22 18:48 Last Admin: 07/24/22 18:51 Dose: 1 1000units Documented By: NARINDER Vital Signs Vital signs: Vital Signs - 8 hr 07/24/22 16:13 Temperature 96.9 F L Pulse Rate 90 Respiratory Rate 16 Blood Pressure 188/62 H Pulse Oximetry 99 Oxygen Delivery Method Room Air Medical Decision Making Imaging Data CT scan - head: Radiologist's Impression: PROCEDURE:? CT HEAD/BRAIN WO CON ? INDICATIONS:? Vision changes with headache ? TECHNIQUE:? Noncontrast 4.5 mm thick angled axial sections acquired from the foramen magnum to the vertex, with coronal and sagittal reformats.? For radiation dose reduction, the following was used:? automated exposure control, adjustment of mA and/or kV according to patient size.? ? COMPARISON:? [facility], CT, HEAD WITHOUT CONTRAST, 09/25/2007, 19:48. ? FINDINGS:? Image quality:? Excellent.? ? CSF spaces:? Basal cisterns are patent.? No extra-axial fluid collections.? Ventricles are normal in size and shape.? ? Brain:? No midline shift.? No intracranial masses or hemorrhage.? Chauhan-white matter interface is normal.? ? Skull and face:? Calvarium and visualized facial bones are intact, without suspicious lesions.? ? Sinuses:? Visualized sinuses and mastoids are clear.? ? IMPRESSION:? ? 1. No acute intracranial abnormalities. MDM Narrative Medical decision making narrative: Head CT is unremarkable. Patient's subjective complaints were fuzziness to the lower portion temporal aspect of the right eye. Objectively she reports fuzziness to the nasal portion lower visual field of the right eye. The left eye appears to be unaffected. It is difficult for her to describe actually which she is seeing. It is not a loss of vision just a blurry/fussiness. Interocular pressures are unremarkable. Low suspicion for CVA. Does not appear to be a cranial nerve palsy. Discussed these findings with the patient. 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 No indication for this to happen emergently here in the emergency department. She was given return precautions. She expressed understanding and agreement. Discharge Plan Departure Patient Disposition: Home Clinical Impression: Alteration in vision Instructions: DI for Visual Field Disturbances Activity Restrictions/Additional Instructions: I recommend that you do follow-up with a spring former machine. You can contact [facility] or [facility] for this. Continue all of your medications as directed. Return to the emergency department for any new or worsening symptoms. Prescriptions: No Action norethindrone (contraceptive) 0.35 mg tablet 0.35 mg PO DAILY vit-iron fum-folic ac [ Vitamin with Minerals] 28 mg iron- 800 mcg tablet 1 tab PO DAILY Qty: 90 3RF Referrals: Enma Burgess ARNP [Primary Care Provider] - Stand Alone Forms: Patient Portal/API
== END 2022-07-24 20:01 | disposition home or self-care (01) ==
PROVIDERS: Emergency Provider Emergency Medicine; PCP Internal Medicine
DX: H54.7 Unspecified visual loss (principal); R51.9 Headache, unspecified
CPT/HCPCS: 70450; 99282; 99284

== ENCOUNTER → 2022-07-27 19:05 | Outpatient (CLI) | payer OTHER, MEDICAID, SELFPAY ==
--- NOTE | 2022-07-27 | DI.MRI.S_ITS ---
PROCEDURE: MR HEAD/BRAIN WO/W CON INDICATIONS: Ischemic optic neuropathy, rt eye TECHNIQUE: Noncontrast axial T1 spin echo, axial T2 fast spin echo, sagittal and axial FLAIR, coronal T2 fast spin echo, axial gradient echo, axial diffusion and ADC through the brain. Axial T1 with fat saturation and coronal stir with fat saturation obtained through the orbits. After the administration of contrast, axial and coronal and sagittal 3D VIBE or T1 spin echo with fat saturation through the brain. Axial and coronal T1 with fat saturation also obtained through the orbits. COMPARISON: None. FINDINGS: Image quality: There is mild magnetic susceptibility artifact anteriorly slightly limiting evaluation. Orbits: The globes are intact. No intraorbital mass lesions or fluid collections. Optic nerves appear symmetric in size and enhancement. Extraocular muscles appear within normal limits. CSF Spaces: Basal cisterns are patent. No extra-axial fluid collections. Ventricles are normal in size and shape. Brain: No intracranial hemorrhage, mass, or mass effect. No abnormal intracranial enhancement. The brainstem appears normal. Diffusion-weighted images demonstrate no acute infarcts. No sellar or suprasellar mass identified. No evidence of mass effect on the optic chiasm. Normal intravascular flow voids are present. Skull and face: Calvarial marrow is normal in signal. Orbits appear normal. Sinuses: Sinuses and mastoids appear clear. IMPRESSION: 1. No acute intracranial abnormality. 2. No acute abnormality identified within the orbits. Dictated by: Jordan Benítez M.D. on 07/27/2022 at 23:21 Approved by: Jordan Benítez M.D. on 07/27/2022 at 23:28
== END ==
PROVIDERS: PCP Internal Medicine; Referring Provider Optometrist; Visit Provider Optometrist
DX: H47.11 Papilledema associated with increased intracranial pressure; H53.451 Other localized visual field defect, right eye
CPT/HCPCS: 70553; A9579

== ENCOUNTER 2022-08-25 11:52 | Outpatient (CLI) | payer OTHER, MEDICAID, SELFPAY ==
--- NOTE | 2022-08-25 11:59 | DI.RAD.S_ITS ---
PROCEDURE: FL GUIDED LUMBAR PUNCTURE LP INDICATIONS: Papilledema associated with increased intracranial COMPARISON: [facility], MR, MR HEAD/BRAIN WO/W CON, 07/27/2022, 19:46. TECHNIQUE: The indications, alternatives, benefits, risks, and complications were explained to the patient. Written informed consent was obtained and placed in the chart. The patient was placed in a prone position on the fluoroscopy table, and a level was chosen for percutaneous access under fluoroscopic guidance. The site was prepped and draped in a sterile fashion. After local anaesthetic, a spinal needle was then used to enter the intrathecal space, with return of cerebrospinal fluid. After obtaining sufficient fluid, the needle was then withdrawn, and a bandage applied to the puncture site. FINDINGS: Puncture level: L3-L4 Needle: Spinal needle. Opening pressure: 21 cm H20. CSF volume and description: 7 mL Medications: 1% lidocaine for anaesthesia. Complications: None Laboratories: As ordered by referring clinician. IMPRESSION: Successful fluoroscopically guided lumbar puncture. Dictated by: Gerard Bliss M.D. on 08/25/2022 at 16:22 Approved by: Gerard Bliss M.D. on 08/25/2022 at 16:23
[2022-08-25 12:28] VITALS: BP 116/75; PULSE 68; RESP 18; TEMP 36.1; O2SAT 99; BMI 29.8
[2022-08-25 13:14] LABS: INR 1.1 (0.9-1.3); Platelet Count 319 X10^3/uL (150-400); Prothrombin Time 12.1 SECONDS (10.1-12.7)
[2022-08-25 13:18] VITALS: BP 111/67; PULSE 67; RESP 20; O2SAT 100
[2022-08-25] MEDS: MIDAZOLAM 2 MG/2 ML VIAL IV (13:23)
[2022-08-25] MEDS: fentaNYL 100 MCG/2 ML INJ 50 MCG IV (13:23)
[2022-08-25 13:25] VITALS: BP 117/69; PULSE 72; RESP 24; O2SAT 100
[2022-08-25 13:34] VITALS: BP 113/61; PULSE 70; RESP 20; O2SAT 100
[2022-08-25 13:45] VITALS: BP 112/70; PULSE 60; RESP 17; TEMP 37.1; O2SAT 96
--- NOTE | 2022-08-25 13:58 | SUR.PHASEII ---
Pt arrived with BELLA Cui from DI. A&Ox3. No pain. Vitals wnl. Last dose of Fent and Versed was at 1315. Pt will remain in recovery until 1540, lying supine.
[2022-08-25 14:50] VITALS: BP 140/97; PULSE 93; RESP 18; TEMP 36.5; O2SAT 100
--- NOTE | 2022-08-25 15:26 | SUR.PHASEII ---
Pt doing well, napping in stretcher. Has completed her 2 hours lying supine required post procedure. Tolerating water. No pain, no nausea. Ready for discharge. Spoke with cindy Dean to DC home. LP site c/d/i with bandaid.
--- NOTE | 2022-08-25 15:59 | SUR.PHASEII ---
Pt's TSAI returned to baseline. No therapeutic relief. Vitals Stable. Bandaid c/d/i. No spinal headache symptoms.
== END 2022-08-25 15:57 | disposition home or self-care (01) ==
PROVIDERS: Specialist; PCP Registered Nurse; Referring Provider Optometrist; Visit Provider Optometrist
PROC: 009U3ZZ Drainage of Spinal Canal, Percutaneous Approach (ICD-10-PCS; principal; 2022-08-25 13:00)
DX: H47.11 Papilledema associated with increased intracranial pressure (principal); H53.451 Other localized visual field defect, right eye
CPT/HCPCS: 62328; 82945; 84157; 85049; 85610; 87070; 87205; 89051; J2250; J3010

== ENCOUNTER → 2022-08-25 14:07 | Outpatient (ROUT) | payer OTHER, MEDICAID, SELFPAY ==
[2022-08-25 14:25] LABS: Appearance CSF Clear (Clear); CSF Tube Number 3; CSF Tube Volume 1.0 mL; Color CSF Colorless (Colorless); Red Blood Cell CSF 0 RBC /uL; White Blood Cell CSF 1 MONO/uL (0-5)
[2022-08-25 14:45] LABS: Glucose CSF 55 mg/dL (40-70); Total Protein CSF 29 mg/dL (12-60)
== END ==
PROVIDERS: PCP Registered Nurse; Visit Provider Optometrist
DX: H47.11 Papilledema associated with increased intracranial pressure (principal); H53.451 Other localized visual field defect, right eye
CPT/HCPCS: 82945; 84157; 87070; 87205; 89051

== ENCOUNTER → 2022-08-30 15:03 | Outpatient (CLI) | payer OTHER, MEDICAID, SELFPAY | PROVIDERS: PCP Registered Nurse; Referring Provider Registered Nurse; Visit Provider Registered Nurse | DX: H53.9 Unspecified visual disturbance (principal); H47.11 Papilledema associated with increased intracranial pressure | CPT/HCPCS: 36415; 83916 ==

== ENCOUNTER 2023-02-27 22:13 | Emergency (ER) | payer OTHER, MEDICAID, SELFPAY ==
[2023-02-27 22:19] VITALS: BP 133/76; PULSE 87; RESP 18; TEMP 36.8; O2SAT 100; BMI 29.8
--- NOTE | 2023-02-27 22:31 | DI.RAD.S_ITS ---
PROCEDURE: XR CHEST 1V INDICATIONS: chest pain TECHNIQUE: One view of the chest was acquired. COMPARISON: None. FINDINGS: Surgical changes and devices: None. Lungs and pleura: Lungs are clear. No pleural effusions or pneumothorax. Mediastinum: Mediastinal contours appear normal. Heart size is normal. Bones and chest wall: No suspicious bony lesions. Overlying soft tissues appear unremarkable. IMPRESSION: No acute cardiopulmonary pathology. Dictated by: Daniel Leggett M.D. on 02/27/2023 at 23:13 Approved by: Daniel Leggett M.D. on 02/27/2023 at 23:14
[2023-02-27 23:09] LABS: Prothrombin Time 11.6 SECONDS (10.1-12.7)
[2023-02-27 23:10] LABS: Add Manual Diff / Slide Review NO; Basophils Absolute Auto 100 /uL (0-100); Basophils Percent Auto 0.8 % (0-2); Eosinophils Absolute Auto 200 /uL (0-450); Hematocrit 36.5 % (36-46); Hemoglobin 12.5 g/dL (12.0-16.0); Lymphocytes Absolute Auto 3100 /uL (1100-4500); Lymphocytes Percent Auto 36.4 % (25-40); Mean Corpuscular HGB Conc 34.3 % (30-36); Mean Corpuscular Hemoglobin 30.3 PG (26-34); Mean Corpuscular Volume 88.5 fL (80-100); Monocytes Absolute Auto 800 /uL (0-900); Monocytes Percent Auto 9.4 % (3-14); Neutrophils Absolute Auto 4400 /uL (1500-7000); Neutrophils Percent Auto 51.4 % (50-75); Platelet Count 274 X10^3/uL (150-400); Red Blood Cell Count 4.12 X10^6/uL (4.0-5.2); White Blood Cell Count 8.6 X10^3/uL (4.5-11.0)
[2023-02-27 23:12] LABS: PTT Partial Thromboplastin Tim 30 SECONDS (26-36)
[2023-02-27 23:14] LABS: Alanine Aminotransferase 18 IU/L (<35); Albumin 4.4 g/dL (3.5-5.0); Albumin Globulin Ratio 1.3 (1.0-2.8); Alkaline Phosphatase 73 U/L (38-126); Aspartate Aminotransferase 23 IU/L (14-36); BUN Creatinine Ratio 10.2 (6-22); Bilirubin Total 0.2 mg/dL (0.2-1.3); Blood Urea Nitrogen 12 mg/dL (7-17); Calcium 9.4 mg/dL (8.4-10.2); Carbon Dioxide 23 mmol/L (22-32); Chloride 102 mmol/L (98-107); Creatine Kinase 108 U/L (30-135); Estimated Glomerular Filt Rate > 60 mL/min (>60); Globulin 3.3 g/dL (1.7-4.1); Glucose 93 mg/dL (70-100); HEMOLYSIS < 15 (0-50); Lipase 102 U/L (23-300); Magnesium 1.8 mg/dL (1.6-2.3); Potassium 3.8 mmol/L (3.4-5.1); Sodium 135 mmol/L (137-145); Total Protein 7.7 g/dL (6.3-8.2)
[2023-02-27 23:25] LABS: Troponin I < 0.012 ng/mL (0.01-0.034)
[2023-02-28 01:19] LABS: Troponin I < 0.012 ng/mL (0.01-0.034)
--- NOTE | 2023-02-28 02:29 | ED.EXTPRO ---
HPI - Extremity Problem General Chief complaint: Extremity Problem,Nontraumatic Stated complaint: lt arm pain, no known injury Time Seen by Provider: 02/27/23 22:28 Source: patient Mode of arrival: Ambulatory History of Present Illness HPI Narrative: This is a 32-year-old only medication is antidepressant, patient states today around 8:00 p.m. she is had sudden onset of pain in her left upper extremity radiating down from shoulder down her arm and sometimes to her hand. She states not always from the neck but there does sometimes have some neck pain. She did notice a little bit of tingling and numbness which has been intermittent. It has come and gone. It radiates up to the scapular area but she denies any chest pain or pressure no shortness of breath. She denies any weakness, difficulty with movement. She states movement of her upper extremity does not seem to make it much worse. She states no nausea no vomiting, no fevers, no passing out. Denies any diarrhea, constipation or issues with bowel movements. No urinary symptoms. No swelling, redness or skin changes. She states she is not had similar symptoms in the past. 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 She did not recall tweaking it or causing any significant issues. She denies any recent trauma or injuries otherwise. She did try an ibuprofen earlier in the evening without any improvement. Patient states only daily medication is an antidepressant. No estrogen or oral contraceptives, no long distance travel. No prior pulmonary emboli. Prior ankle surgery remotely. No tobacco, alcohol or recreational drugs. Allergic to penicillin. Primary care is Maria Ines Orantes. Patient states no cardiac, pulmonary, embolic family history. Related Data Home Medications Medication Instructions Recorded Confirmed norethindrone (contraceptive) 0.35 0.35 mg PO DAILY 09/06/21 08/25/22 mg tablet acetazolamide 250 mg tablet 250 mg PO BID 08/25/22 08/25/22 sertraline 25 mg tablet (Zoloft) 25 mg PO DAILY 08/25/22 08/25/22 Previous Rx's Medication Instructions Recorded vitamin-ferrous fumarate 1 tab PO DAILY #90 tabs 02/16/22 28 mg iron-folic acid 800 mcg tablet ( Vitamins with Minerals) meloxicam 7.5 mg tablet 7.5 mg PO BID PRN pain #10 tabs 02/28/23 Allergies Allergy/AdvReac Type Severity Reaction Status Date / Time Penicillins [PENICILLINS] AdvReac Unknown CAUSES Verified 07/24/22 16:16 AGITATION Review of Systems Review of Systems ROS Unobtainable: All systems reviewed & are unremarkable except as noted in HPI and below Patient History Surgical History History of third molar tooth extraction Status post loop electrosurgical excision procedure (LEEP) of cervix (07/12/09) Social History household members: none Smoking Status: Former smoker alcohol intake: current Smoking Status: Former smoker alcohol intake frequency: a few times a week Alcohol type: wine Substance Use Type: does not use Exam Narrative Exam Narrative: GEN: well nourished, well appearing female, alert and oriented x 3, patient appears to be in mild distress. HEENT: Atraumatic, pupils are equal round reactive to light, extraocular movements are intact, nares are clear, Throat is clear without any exudates, erythema, tonsillar enlargement or uvular deviation HEART: Regular rate and rhythm without murmur, clicks, rubs. Pulses are equal in upper bilateral extremities LUNGS:Lungs clear to auscultation, no wheezes, rales, crackles, chest moves symmetrically, no tachypnea accessory muscle use ABD:bowel sounds normal, soft, non-tender, no guarding, rebound, rigidity, no masses noted, no hepatosplenomegaly :No CVA tenderness BACK: No cervical, thoracic or lumbar vertebral point tenderness. Patient has normal range of motion. Patient's gait is normal. Muscle strength is 5/5 in upper extremities, equal director weights and measures bilaterally, 2+ radial pulses bilaterally. Sensation is intact in the throughout bilateral upper extremities. Negative Spurling's test. Patient does have some increased pain with movement at the shoulder. She does also have some muscle tightness in the scapular region and trapezius on the left. MSCL: Non-tender, no muscle atrophy, no swelling of upper extremities, no warmth, erythema or other skin changes. NEURO:CN 2-12 intact, sensation normal SKIN: No rash, erythema or other skin changes. Initial Vital Signs Initial Vital Signs: Vital Signs Temperature 98.2 F 02/27/23 22:19 Pulse Rate 87 02/27/23 22:19 Respiratory Rate 18 02/27/23 22:19 Blood Pressure 133/76 02/27/23 22:19 Pulse Oximetry 100 02/27/23 22:19 Oxygen Delivery Method Room Air 02/27/23 22:19 Scores HEART Score Heart Score history: Slightly Suspicious Heart Score EKG: Normal Heart Score Age: < 45 years old Heart Score risk factors: No known risk factors Heart Score troponin: < or = to normal limit Heart Score Total: 0 PERC Score Age greater than or equal to 50 years: No Heart rate greater than or equal to 100 bpm: No Room Air O2 Sat less than 95%: No Unilateral leg swelling: No (no unilateral arm swelling.) Recent trauma or surgery: No Hemoptysis: No Prior PE or DVT: No Hormone Use: No Total PERC Score: 0 Course Orders Ordered: ED Orders 02/27/23 22:31 XR chest 1V Stat EKG-12 Lead Stat 02/27/23 22:52 Complete Blood Count AUTO DIFF Stat Comprehensive Metabolic Panel Stat Lipase Stat Magnesium Stat PTT Partial Thromboplastin Abdirahman Stat Prothrombin Time INR Stat Troponin & CK Cardiac Panel Stat 02/28/23 00:50 Trop I [Troponin I] Stat Discontinued Medications Cyclobenzaprine HCl (Cyclobenzaprine 10 Mg Prepack) 1 bottle MISC SEEINSTR ONE Stop: 02/28/23 02:51 Last Admin: 02/28/23 02:56 Dose: 1 bottle Documented By: HITESH Ketorolac Tromethamine (Ketorolac 30 Mg/Ml Vial) 15 mg IV NOW ONE Stop: 02/28/23 02:51 Last Admin: 02/28/23 02:56 Dose: 15 mg Documented By: HITESH Vital Signs Vital signs: Vital Signs - 8 hr 02/27/23 22:19 02/28/23 03:16 Temperature 98.2 F 97.6 F Pulse Rate 87 74 Respiratory Rate 18 16 Blood Pressure 133/76 128/72 Pulse Oximetry 100 98 Oxygen Delivery Method Room Air Room Air MDM - Extremity (Nontraumatic) Lab Data 02/27/23 22:52 02/27/23 22:52 Labs: Lab Results 02/27/23 02/28/23 Range/Units 22:52 00:50 WBC 8.6 (4.5-11.0) X10^3/uL RBC 4.12 (4.0-5.2) X10^6/uL Hgb 12.5 (12.0-16.0) g/dL Hct 36.5 (36-46) % MCV 88.5 (80-100) fL MCH 30.3 (26-34) PG MCHC 34.3 (30-36) % RDW 13.0 (11.6-14.8) % Plt Count 274 (150-400) X10^3/uL Neut % (Auto) 51.4 (50-75) % Lymph % (Auto) 36.4 (25-40) % [place]wood % (Auto) 9.4 (3-14) % Eos % (Auto) 2.0 (2-4) % Baso % (Auto) 0.8 (0-2) % Neut # (Auto) 4400 (4799-9559) /uL Lymph # (Auto) 3100 (0933-8861) /uL Greenwood # (Auto) 800 (0-900) /uL Eos # (Auto) 200 (0-450) /uL Baso # (Auto) 100 (0-100) /uL PT 11.6 (10.1-12.7) SECONDS INR 1.0 (0.9-1.3) APTT 30 (26-36) SECONDS Sodium 135 L (137-145) mmol/L Potassium 3.8 (3.4-5.1) mmol/L Chloride 102 (98-107) mmol/L Carbon Dioxide 23 (22-32) mmol/L BUN 12 (7-17) mg/dL Creatinine 1.18 H (0.52-1.04) mg/dL Estimated GFR > 60 (>60) mL/min BUN/Creatinine Ratio 10.2 (6-22) Glucose 93 (70-100) mg/dL Calcium 9.4 (8.4-10.2) mg/dL Magnesium 1.8 (1.6-2.3) mg/dL Total Bilirubin 0.2 (0.2-1.3) mg/dL AST 23 (14-36) IU/L ALT 18 (<35) IU/L Alkaline Phosphatase 73 (38-126) U/L Total Creatine Kinase 108 (30-135) U/L Troponin I < 0.012 < 0.012 (0.01-0.034) ng/mL Total Protein 7.7 (6.3-8.2) g/dL Albumin 4.4 (3.5-5.0) g/dL Globulin 3.3 (1.7-4.1) g/dL Albumin/Globulin Ratio 1.3 (1.0-2.8) Lipase 102 (23-300) U/L Imaging Data Chest x-ray: Radiologist's Impression: [address] [address] XRay Report Signed Patient: Etta Vincent MR#: [id number] : 1990 Acct:[id number] Age/Sex: 32 / F Date of Service: 02/27/23 Loc: ED Accession Number: [id number] Procedure: XR chest 1V Ordering Provider: Ariana Peace D.O. PROCEDURE: XR CHEST 1V INDICATIONS: chest pain TECHNIQUE: One view of the chest was acquired. COMPARISON: None. FINDINGS: Surgical changes and devices: None. Lungs and pleura: Lungs are clear. No pleural effusions or pneumothorax. Mediastinum: Mediastinal contours appear normal. Heart size is normal. Bones and chest wall: No suspicious bony lesions. Overlying soft tissues appear unremarkable. IMPRESSION: No acute cardiopulmonary pathology. Dictated by: Daniel Leggett M.D. on 02/27/2023 at 23:13 Approved by: Daniel Leggett M.D. on 02/27/2023 at 23:14 ECG Data Attestation EKG: I personally reviewed and interpreted this ECG as follows: Interpretation: Sinus rhythm rate of 77 MN 174 QRS 84 QTC of 411. No acute ST elevation depression. No priors for comparison. MDM Narrative Medical decision making narrative: This is a 28 female with left upper extremity pain, normal neurologic exam. Patient has not had similar symptoms in the past. Did have some tingling which has been intermittent pain has come and gone did have cardiac workup although seems less likely. Repeat troponins, EKG showed no acute change chest x-ray was negative labs show any other acute cause. Patient does not have any high-risk factors for emboli she states she is not on any oral contraceptive or estrogen, no long distance travel, no family history. No significant cardiac family history reported. 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 She had negative Spurling's test but did have increase in symptoms afterwards. Suspect more of a radicular symptoms. Discussed return precautions. Patient was given a dose of Toradol here in the department as well as muscle relaxer to see if this is helpful. No no paresthesias so hold off on Neurontin or gabapentin. Asked to follow up with primary care. We did review potential causes and asked patient to return if worsening or changing symptoms. Discharge Plan Departure Patient Disposition: Home Clinical Impression: Arm pain, left Instructions: DI for Cervical Radiculopathy Activity Restrictions/Additional Instructions: Please follow-up with your primary care for recheck if symptoms are persisting. You may take Tylenol up to a 1000 mg every 6 hours, you may take meloxicam every 12 hours as needed for pain. This medication similar to ibuprofen so I do not take NSAIDs, Aleve or Motrin with it. Prescription sent to [facility] in in [place]. You can take Flexeril 1 tablet every 8 hours as needed for muscle relaxation. This medication can make you sleepy do not drive, perform hazardous activities or make any major decisions while taking it. Please return for rapidly worsening symptoms, new weakness, numbness or loss of movement, new chest pain or shortness of breath, passing out, new swelling, redness of your extremity persistent vomiting or other new or concerning changes. Prescriptions: New meloxicam 7.5 mg tablet 7.5 mg PO BID PRN (Reason: pain) Qty: 10 0RF No Action norethindrone (contraceptive) 0.35 mg tablet 0.35 mg PO DAILY vit-iron fum-folic ac [ Vitamin with Minerals] 28 mg iron- 800 mcg tablet 1 tab PO DAILY Qty: 90 3RF acetazolamide 250 mg Tablet 250 mg PO BID sertraline [Zoloft] 25 mg Tablet 25 mg PO DAILY Referrals: Maria Ines Orantes ARNP [Primary Care Provider] - Stand Alone Forms: Patient Portal/API
[2023-02-28] MEDS: CYCLOBENZAPRINE 10 MG PREPACK 1 BOTTLE MISC (02:56)
[2023-02-28] MEDS: KETOROLAC 30 MG/ML VIAL 15 MG IV (02:56)
[2023-02-28 03:16] VITALS: BP 128/72; PULSE 74; RESP 16; TEMP 36.4; O2SAT 98
== END 2023-02-28 03:17 | disposition home or self-care (01) ==
PROVIDERS: Emergency Provider Emergency Medicine; Family Provider Registered Nurse; PCP Registered Nurse
DX: R07.9 Chest pain, unspecified (principal); M79.602 Pain in left arm
CPT/HCPCS: 36415; 71045; 80053; 82550; 83690; 83735; 84484; 85025; 85610; 85730; 93005; 96374; 99284; J1885

== ENCOUNTER → 2023-06-12 16:28 | Outpatient (CLI) | payer OTHER, MEDICAID, SELFPAY ==
--- NOTE | 2023-06-12 | DI.RAD.S_ITS ---
PROCEDURE: XR CHEST 2V INDICATIONS: COUGH TECHNIQUE: 2 views of the chest were acquired. COMPARISON: [facility], CR, XR CHEST 1V, 02/27/2023, 22:39. FINDINGS: Surgical changes and devices: None. Lungs and pleura: Lungs are clear. No pleural effusions or pneumothorax. Mediastinum: Mediastinal contours are normal. Heart size is normal. Bones and chest wall: No suspicious bony abnormalities. Soft tissues appear unremarkable. IMPRESSION: No acute cardiopulmonary abnormality. Dictated by: Portillo Barcenas M.D. on 06/12/2023 at 17:05 Approved by: Portillo Barcenas M.D. on 06/12/2023 at 17:09
== END ==
PROVIDERS: Family Provider Registered Nurse; PCP Registered Nurse; Referring Provider Internal Medicine; Visit Provider Internal Medicine
DX: R05.1 Acute cough (principal)
CPT/HCPCS: 71046

== ENCOUNTER 2023-06-14 13:00 | Outpatient (RCR) | payer OTHER, MEDICAID, SELFPAY ==
--- NOTE | 2023-03-22 16:17 | PT.OIE ---
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) Pelvic and perineal pain (03/22/23) Feeling of incomplete bladder emptying (03/22/23) Past Surgical History (Last Reviewed 02/28/23 @ 02:58 by Ariana Peace DO) History of third molar tooth extraction Status post loop electrosurgical excision procedure (LEEP) of cervix (07/12/09) Visit Care Team Role Provider Type DEBO Brown Family Provider Non-Staff Primary Care Provider Specialty: Family Practice Address: [address] [place] [address] [place], [address] Email: Beth Aguilar PA-C Attending Provider Non-Staff Referring Provider Specialty: Urology Address: [address] [place] [address], [id number] Email: Physical Therapy Initial Evaluation PT-OP-A Visit Information Start: 03/22/23 08:41 Freq: Status: Active Protocol: Document 03/22/23 08:41 [facility] (Rec: 03/22/23 09:10 [facility] [id number]) Out-Patient Physical Therapy Visit Information Visit Information Visit Type Initial Evaluation Visit Start Time 08:45 Visit Stop Time 09:30 Total Visit Minutes 45 Visit Number 1 Evaluation Information Evaluation Date 03/22/23 PT-OP-B Current Condition Start: 03/22/23 08:41 Freq: Status: Active Protocol: Document 03/22/23 08:45 [facility] (Rec: 03/22/23 09:10 [facility] [id number]) Current Condition History of Current Condition Onset Date summer 2022 Current Complaints incomplete bladder emptying, difficulty starting the flow of urine History of Current Condition 32 year old female with hypotonic bladder, pelvic pain , incomplete bladder emptying Her symptoms began quite a awhile after she had her son with . Her son was born in May 2021. Her symptoms started in 2022. She started noticing it was difficut for her to start urinating and she needs to bare down to void. She notes she is not able to fully empty and felt like her bladder was full. She notes that her low back and pelvis were very painful after she had her son. She felt like her pelvis was off. SHe notes she didn't have a lot of help post and she notes she held her bladder quite a bit when her son was breast feeding or asleep on her. Now she has been working on voiding when she gets the urge, she did learn how to self cath. She also notes she goes in cycles where she is voiding normally and then it cycles back to not good. She drinks around 100 oz of water per day and rarely does caffeine. PT-OP-C Subjective Start: 03/22/23 08:41 Freq: Status: Active Protocol: Document 03/22/23 08:45 [facility] (Rec: 03/22/23 15:42 [facility] [id number]) Patient Questionnaires Pelvic Pain and Urgency/Frequency Patient Symptom Scale Pelvic Pain Score 13 OP-PT Pain Assessment Pain Assessment Grid Paper Pain Assessment Grid Completed Yes Location Low back pain Intensity 6 Scale Used Numeric (0 - 10) right anterior hip and pelvis Pain Location Details 5 Intensity 5 Scale Used Numeric (0 - 10) PT-OP-F Manual Assessment Start: 03/22/23 08:41 Freq: Status: Active Protocol: Document 03/22/23 08:45 [facility] (Rec: 03/22/23 15:42 [facility] [id number]) Manual Assessments Soft Tissue Assessment Soft Tissue Mobility Assessment tightness and guarding in the levator ani more so on the left lateral wall and the anterior pelvic floor B Tightness and guarding of the adductors B PT-OP-I Pelvic Floor Start: 03/22/23 08:41 Freq: Status: Active Protocol: Document 03/22/23 08:45 [facility] (Rec: 03/22/23 15:42 [facility] [id number]) Pelvic Floor Assessment Urine Pelvic Floor Surgery No Urinary Symptoms Incomplete Emptying Other Urinary Symptoms difficulty starting the stream of urine Pelvic Clock Pelvic Clock 12-3 Guarding Pelvic Clock 3-6 Guarding Pelvic Clock 9-12 Guarding Contraction Ability Voluntary Contraction Moderate Voluntary Relaxation Moderate Manual Muscle Testing Left 5 Manual Muscle Testing Right 5 Manual Muscle Testing Anterior 5 Manual Muscle Testing Posterior 5 Muscle Endurance (Seconds) 5 PT-OP-K Range of Motion Start: 03/22/23 16:15 Freq: Status: Active Protocol: Document 03/22/23 08:45 [facility] (Rec: 03/22/23 16:16 [facility] [id number]) Hip Goniometric Range of Motion Hip ROM Limitations Hip ROM Limitations Soft Tissue Tightness Comments hip abduction and hip extension B as she is tight and restricted in adductors and iliopsoas PT-OP-Q Treatments Start: 03/22/23 08:41 Freq: Status: Active Protocol: Document 03/22/23 08:45 [facility] (Rec: 03/22/23 09:37 [facility] [id number]) Therapeutic Exercises Supine Exercises hip flexor stretch Supine Exercise Name started with single knee to chest stretch for hip flexors Side right Reps/Minutes 1-2 min happy baby stretch Reps/Minutes hold 1-2 min supine pelvic floor stretch Reps/Minutes hold 1-2 min Sitting Exercises adductor stretch V stretch Reps/Minutes hold 1-2 minutes PT-OP-T Assessment and Plan Start: 03/22/23 08:41 Freq: Status: Active Protocol: Document 03/22/23 08:45 [facility] (Rec: 03/22/23 15:45 [facility] [id number]) Physical Therapy Assessment Rehab Potential Rehabilitation Potential Excellent Evaluation Complexity Number of Personal Factors/Comorbidities 0 Number of Body Systems Impaired 1-2 Clinical Presentation at Evaluation Stable Goals 3 Impairment pelvic floor guarding and tightness on the anterior and left lateral araujo of the levator ani 2 Impairment incomplete bladder emptying and difficulty initiating the stream of urine Skilled Nursing Goal (LTG) With relaxation of the pelvic floor, bladder retraining, and toileting positions Piper is able to fully empty her bladder LTG Duration 12 weeks 1 Impairment Bilateral low back and right sided pelvic pain rated 5-6/10 Short Term Goal (STG) Piper is educated in stretches for the hips, low back, and pelvic floor to help reduce tension and pain STG Duration 4 weeks Skilled Nursing Goal (LTG) Piper reports a overall reduction in pain in the low back and anterior pelvis and notes pain levels have decreased by 2-3 points or better Assessment Summary Assessment Piper is a 32 year old female who presents to physical therapy with c/o incomplete bladder emptying, pelvic pain, and hyptonic bladder Her symtoms began approx 1 year after her C section delivery with her son in May 2021. She notes she didn't have a lot of help and did alot of the care of her son on her own. She would often put off voiding due to holding her son. 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 She was told by urology that her bladder was distended and larger than it should be. At this point Piper is workin on trying to void when she feels the urge and not delaying the need to go. She notes that often she has difficulty both starting the stream of urine and fully emptying her bladder . She does use a catheter at times to help her fully empty. With exam today I did look at her scar as it is right over the bladder. There is no tenderness noted and the scar is well healed without a lot of scar tissue and good fascial mobility noted around the bladder. With pelvic floor exam there is tightness and guarding on the left lateral wall of the levator ani and the anterior wall bilaterally. There is also guarding at the adductor attachment to the pubic bone. Piper was given stretches for the pelvic floor today and also educated on using a squatty potty to elevate knees above hips to encourage pelvic floor relaxation with voiding. Treatment will focus on relaxation of the pelvic floor with stretches and manual therapy techniques. Physical Therapy Plan Frequency and Duration Frequency of Treatment 1x/Week Duration of treatment (weeks) 12 Plan of Care Start Date 03/22/23 Plan of Care End Date 06/14/23 Therapeutic Interventions Therapeutic Interventions Home Exercise Program,Manual Therapy,Neuromuscular Re- education,Self-Care/Home Management,Soft Tissue Mobilization,Therapeutic Exercises Modalities Biofeedback Next Visit Focus/Plan Next Note Type Treatment Note Next Visit Plan review pelvic stretches and toileting strategies next visit, begin MFR work for the anterior pelvic floor and adductors
--- NOTE | 2023-03-22 16:17 | PT.OPPOC ---
Physical, Occupational & Speech Therapy At [facility] 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) Pelvic and perineal pain (03/22/23) Feeling of incomplete bladder emptying (03/22/23) Visit Care Team Role Provider Type DEBO Brown Family Provider Non-Staff Primary Care Provider Specialty: Family Practice Address: [address] [place] [address] [place], [address] Email: Beth Aguilar PA-C Attending Provider Non-Staff Referring Provider Specialty: Urology Address: [address] [place] [address], [id number] Email: Plan Of Care PT-OP-T Assessment and Plan Start: 03/22/23 08:41 Freq: Status: Active Protocol: Document 03/22/23 08:45 [facility] (Rec: 03/22/23 15:45 [facility] [id number]) Physical Therapy Assessment Rehab Potential Rehabilitation Potential Excellent Evaluation Complexity Number of Personal Factors/Comorbidities 0 Number of Body Systems Impaired 1-2 Clinical Presentation at Evaluation Stable Goals 3 Impairment pelvic floor guarding and tightness on the anterior and left lateral araujo of the levator ani 2 Impairment incomplete bladder emptying and difficulty initiating the stream of urine 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 Director Goal (LTG) With relaxation of the pelvic floor, bladder retraining, and toileting positions Piper is able to fully empty her bladder LTG Duration 12 weeks 1 Impairment Bilateral low back and right sided pelvic pain rated 5-6/10 Short Term Goal (STG) Piper is educated in stretches for the hips, low back, and pelvic floor to help reduce tension and pain STG Duration 4 weeks 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 Admissions Director Goal (LTG) Piper reports a overall reduction in pain in the low back and anterior pelvis and notes pain levels have decreased by 2-3 points or better Assessment Summary Assessment Piper is a 32 year old female who presents to physical therapy with c/o incomplete bladder emptying, pelvic pain, and hypotonic bladder Her symptoms began approx 1 year after her C section delivery with her son in May 2021. She notes she didn't have a lot of help and did a lot of the care of her son on her own. She would often put off voiding due to holding her son. 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 She was told by urology that her bladder was distended and larger than it should be. At this point Piper is working on trying to void when she feels the urge and not delaying the need to go. She notes that often she has difficulty both starting the stream of urine and fully emptying her bladder . She does use a catheter at times to help her fully empty. With exam today I did look at her scar as it is right over the bladder. There is no tenderness noted and the scar is well healed without a lot of scar tissue and good fascial mobility noted around the bladder. With pelvic floor exam there is tightness and guarding on the left lateral wall of the levator ani and the anterior wall bilaterally. There is also guarding at the adductor attachment to the pubic bone. Piper was given stretches for the pelvic floor today and also educated on using a squatty potty to elevate knees above hips to encourage pelvic floor relaxation with voiding. Treatment will focus on relaxation of the pelvic floor with stretches and manual therapy techniques. Physical Therapy Plan Frequency and Duration Frequency of Treatment 1x/Week Duration of treatment (weeks) 12 Plan of Care Start Date 03/22/23 Plan of Care End Date 06/14/23 Therapeutic Interventions Therapeutic Interventions Home Exercise Program,Manual Therapy,Neuromuscular Re- education,Self-Care/Home Management,Soft Tissue Mobilization,Therapeutic Exercises Modalities Biofeedback Next Visit Focus/Plan Next Note Type Treatment Note Next Visit Plan review pelvic stretches and toileting strategies next visit, begin MFR work for the anterior pelvic floor and adductors Plan of Care Dates Plan of Care Start Date 03/22/23 Plan of Care End Date 06/14/23 Electronically Signed by: Love Clark, PT 03/22/23 [id number] If you are in agreement with this Plan of Care, please return a signed and dated copy. I have reviewed this Plan of Care and certify that the skilled therapy services above are required to meet the patient?s needs. Physician Signature Date Printed Name and Credentials Clinical Instructor Signature Printed Name and Credentials
--- NOTE | 2023-03-29 15:03 | PT.OTN ---
Current Diagnoses Flaccid neuropathic bladder, not elsewhere classified (03/29/23) Pelvic and perineal pain (03/29/23) Feeling of incomplete bladder emptying (03/29/23) Physical Therapy Treatment Note PT-OP-A Visit Information Start: 03/22/23 08:41 Freq: Status: Active Protocol: Document 03/29/23 08:45 AMH (Rec: 03/29/23 09:36 [facility] [id number]) Out-Patient Physical Therapy Visit Information Visit Information Visit Type Treatment Note Visit Start Time 08:45 Visit Stop Time 09:30 Total Visit Minutes 45 Visit Number 2 PT-OP-B Current Condition Start: 03/22/23 08:41 Freq: Status: Active Protocol: Document 03/22/23 08:45 AMH (Rec: 03/22/23 09:10 [facility] [id number]) Current Condition History of Current Condition Onset Date summer 2022 Current Complaints incomplete bladder emptying, difficulty starting the flow of urine History of Current Condition 32 year old female with hypotonic bladder, pelvic pain , incomplete bladder emptying Her symptoms began quite a awhile after she had her son with . Her son was born in May 2021. Her symptoms started in 2022. She started noticing it was difficut for her to start urinating and she needs to bare down to void. She notes she is not able to fully empty and felt like her bladder was full. She notes that her low back and pelvis were very painful after she had her son. She felt like her pelvis was off. SHe notes she didn't have a lot of help post and she notes she held her bladder quite a bit when her son was breast feeding or asleep on her. Now she has been working on voiding when she gets the urge, she did learn how to self cath. She also notes she goes in cycles where she is voiding normally and then it cycles back to not good. She drinks around 100 oz of water per day and rarely does caffeine. PT-OP-C Subjective Start: 03/22/23 08:41 Freq: Status: Active Protocol: Document 03/29/23 08:45 AMH (Rec: 03/29/23 09:36 [facility] [id number]) OP-PT Subjective Patient Comments Patient Comments pt notes she worked on her stretches all week, she has questions regarding the pelvic wand as well because she is thinking of purchasing one and doesn't have another appt until Dec 15th. Piper notes she has done better this past week with voiding and hasn't needed the catheter Patient Reported Progress Improving PT-OP-F Manual Assessment Start: 03/22/23 08:41 Freq: Status: Active Protocol: Document 03/22/23 08:45 AMH (Rec: 03/22/23 15:42 [facility] [id number]) Manual Assessments Soft Tissue Assessment Soft Tissue Mobility Assessment tightness and guarding in the levator ani more so on the left lateral wall and the anterior pelvic floor B Tightness and guarding of the adductors B PT-OP-I Pelvic Floor Start: 03/22/23 08:41 Freq: Status: Active Protocol: Document 03/22/23 08:45 AMH (Rec: 03/22/23 15:42 [facility] [id number]) Pelvic Floor Assessment Urine Pelvic Floor Surgery No Urinary Symptoms Incomplete Emptying Other Urinary Symptoms difficulty starting the stream of urine Pelvic Clock Pelvic Clock 12-3 Guarding Pelvic Clock 3-6 Guarding Pelvic Clock 9-12 Guarding Contraction Ability Voluntary Contraction Moderate Voluntary Relaxation Moderate Manual Muscle Testing Left 5 Manual Muscle Testing Right 5 Manual Muscle Testing Anterior 5 Manual Muscle Testing Posterior 5 Muscle Endurance (Seconds) 5 PT-OP-K Range of Motion Start: 03/22/23 16:15 Freq: Status: Active Protocol: Document 03/22/23 08:45 AMH (Rec: 03/22/23 16:16 [facility] [id number]) Hip Goniometric Range of Motion Hip ROM Limitations Hip ROM Limitations Soft Tissue Tightness Comments hip abduction and hip extension B as she is tight and restricted in adductors and iliopsoas PT-OP-Q Treatments Start: 03/22/23 08:41 Freq: Status: Active Protocol: Document 03/29/23 08:45 AMH (Rec: 03/29/23 15:03 [facility] [id number]) Manual Therapy Treatment Soft Tissue Mobilization levator ani release Mobilization Type Myofascial Release Intensity/Depth Moderate Body Position Hooklying Comments worked on releasing the pelvic floor on the left side from 3 -6 on the pelvic floor good tolerance for this and Piper was educated on use of a pelvic wand to be able to do self release at home iliopsoas release B Body Position Supine Comments In Tony test position working into a stretch for the iliopsoas adductor release B Comments right greater than left adductor tightness and guarding, Piper did well with manual release and tolerated it well PT-OP-T Assessment and Plan Start: 03/22/23 08:41 Freq: Status: Active Protocol: Document 03/29/23 08:45 [facility] (Rec: 03/29/23 09:36 [facility] [id number]) Physical Therapy Assessment Goals 3 Impairment pelvic floor guarding and tightness on the anterior and left lateral araujo of the levator ani 2 Impairment incomplete bladder emptying and difficulty initiating the stream of urine [employer] Goal (LTG) With relaxation of the pelvic floor, bladder retraining, and toileting positions Piper is able to fully empty her bladder LTG Duration 12 weeks 1 Impairment Bilateral low back and right sided pelvic pain rated 5-6/10 Short Term Goal (STG) Piper is educated in stretches for the hips, low back, and pelvic floor to help reduce tension and pain STG Duration 4 weeks [employer] Goal (LTG) Piper reports a overall reduction in pain in the low back and anterior pelvis and notes pain levels have decreased by 2-3 points or better Assessment Summary Assessment time was spent today working on adductor release, she was tighter on the right side, iliopsoas release B and work on the left lateral wall of the levator ani. She is not as tight this week as she was at the time of her initial evaluation. She was educated in use of the pelvic wand for use from 3-6 on the pelvic clock Physical Therapy Plan Frequency and Duration Frequency of Treatment 1x/Week Duration of treatment (weeks) 12 Plan of Care Start Date 03/22/23 Plan of Care End Date 06/14/23 Therapeutic Interventions Therapeutic Interventions Home Exercise Program,Manual Therapy,Neuromuscular Re- education,Self-Care/Home Management,Soft Tissue Mobilization,Therapeutic Exercises Modalities Biofeedback Next Visit Focus/Plan Next Note Type Treatment Note Next Visit Plan check SI and sacral alignment next week, reassess tone of adductors, iliopsoas and levator ani, review stretches
--- NOTE | 2023-04-02 17:11 | PT.OTN ---
Current Diagnoses Flaccid neuropathic bladder, not elsewhere classified (04/02/23) Pelvic and perineal pain (04/02/23) Feeling of incomplete bladder emptying (04/02/23) Physical Therapy Treatment Note PT-OP-A Visit Information Start: 03/22/23 08:41 Freq: Status: Active Protocol: Document 04/02/23 13:00 LRN (Rec: 04/02/23 13:46 LRN [id number]) Out-Patient Physical Therapy Visit Information Visit Information Visit Type Treatment Note Visit Start Time 13:00 Visit Stop Time 13:38 Total Visit Minutes 38 Visit Number 3 Evaluation Information Evaluation Date 03/22/23 PT-OP-B Current Condition Start: 03/22/23 08:41 Freq: Status: Active Protocol: Document 03/22/23 08:45 AMH (Rec: 03/22/23 09:10 AMH [id number]) Current Condition History of Current Condition Onset Date summer 2022 Current Complaints incomplete bladder emptying, difficulty starting the flow of urine History of Current Condition 32 year old female with hypotonic bladder, pelvic pain , incomplete bladder emptying Her symptoms began quite a awhile after she had her son with . Her son was born in May 2021. Her symptoms started in 2022. She started noticing it was difficut for her to start urinating and she needs to bare down to void. She notes she is not able to fully empty and felt like her bladder was full. She notes that her low back and pelvis were very painful after she had her son. She felt like her pelvis was off. SHe notes she didn't have a lot of help post and she notes she held her bladder quite a bit when her son was breast feeding or asleep on her. Now she has been working on voiding when she gets the urge, she did learn how to self cath. She also notes she goes in cycles where she is voiding normally and then it cycles back to not good. She drinks around 100 oz of water per day and rarely does caffeine. PT-OP-C Subjective Start: 03/22/23 08:41 Freq: Status: Active Protocol: Document 04/02/23 13:00 LRN (Rec: 04/02/23 13:46 LRN [id number]) OP-PT Subjective Patient Comments Patient Comments States she feels like things are getting better. Feels easier to start urinating and doesn't feel so tight. Doing the PF holds. Not self cathetering. PT-OP-F Manual Assessment Start: 03/22/23 08:41 Freq: Status: Active Protocol: Document 03/22/23 08:45 AMH (Rec: 03/22/23 15:42 AMH [id number]) Manual Assessments Soft Tissue Assessment Soft Tissue Mobility Assessment tightness and guarding in the levator ani more so on the left lateral wall and the anterior pelvic floor B Tightness and guarding of the adductors B PT-OP-I Pelvic Floor Start: 03/22/23 08:41 Freq: Status: Active Protocol: Document 03/22/23 08:45 AMH (Rec: 03/22/23 15:42 AMH [id number]) Pelvic Floor Assessment Urine Pelvic Floor Surgery No Urinary Symptoms Incomplete Emptying Other Urinary Symptoms difficulty starting the stream of urine Pelvic Clock Pelvic Clock 12-3 Guarding Pelvic Clock 3-6 Guarding Pelvic Clock 9-12 Guarding Contraction Ability Voluntary Contraction Moderate Voluntary Relaxation Moderate Manual Muscle Testing Left 5 Manual Muscle Testing Right 5 Manual Muscle Testing Anterior 5 Manual Muscle Testing Posterior 5 Muscle Endurance (Seconds) 5 PT-OP-K Range of Motion Start: 03/22/23 16:15 Freq: Status: Active Protocol: Document 03/22/23 08:45 AMH (Rec: 03/22/23 16:16 AMH [id number]) Hip Goniometric Range of Motion Hip ROM Limitations Hip ROM Limitations Soft Tissue Tightness Comments hip abduction and hip extension B as she is tight and restricted in adductors and iliopsoas PT-OP-Q Treatments Start: 03/22/23 08:41 Freq: Status: Active Protocol: Document 04/02/23 13:00 LRN (Rec: 04/02/23 13:46 LRN [id number]) Therapeutic Exercises Supine Exercises happy baby stretch Reps/Minutes hold 1-2 min Manual Therapy Treatment Soft Tissue Mobilization Sacral Balancing Body Location Sacrum Mobilization Type Sustained Pressure Comments Sacral Sulcus: PA L side, infer glide R side. PA R Ischial Tub & RICK 6 pt balancing. iliopsoas release B Body Position Supine Comments In Tony test position working into a stretch for the iliopsoas adductor release B Mobilization Type Trigger Point Release,Other Comments left greater than right adductor tightness and guarding, Added c/r stretch to hip AD after TrP treatment. PT-OP-T Assessment and Plan Start: 03/22/23 08:41 Freq: Status: Active Protocol: Document 04/02/23 13:00 LRN (Rec: 04/02/23 13:46 LRN [id number]) Physical Therapy Assessment Goals 3 Impairment pelvic floor guarding and tightness on the anterior and left lateral araujo of the levator ani 2 Impairment incomplete bladder emptying and difficulty initiating the stream of urine [facility] Goal (LTG) With relaxation of the pelvic floor, bladder retraining, and toileting positions Piper is able to fully empty her bladder LTG Duration 12 weeks 1 Impairment Bilateral low back and right sided pelvic pain rated 5-6/10 Short Term Goal (STG) Piper is educated in stretches for the hips, low back, and pelvic floor to help reduce tension and pain STG Duration 4 weeks [facility] Goal (LTG) Piper reports a overall reduction in pain in the low back and anterior pelvis and notes pain levels have decreased by 2-3 points or better Assessment Summary Assessment Hip AD's tighter L side today than R side. + response to Antolin ADD release. Able to correct Sacral imbalance except at pubic rami. Pt needs education on proper body mechanics to limit back pain. Physical Therapy Plan Frequency and Duration Frequency of Treatment 1x/Week Duration of treatment (weeks) 12 Plan of Care Start Date 03/22/23 Plan of Care End Date 06/14/23 Next Visit Focus/Plan Next Note Type Treatment Note Next Visit Plan Check response to sacral alignment next week and of pubic rami. Reassess tone of adductors, iliopsoas and levator ani, review stretches
--- NOTE | 2023-04-06 12:38 | PT.OTN ---
Current Diagnoses Flaccid neuropathic bladder, not elsewhere classified (04/06/23) Pelvic and perineal pain (04/06/23) Feeling of incomplete bladder emptying (04/06/23) Physical Therapy Treatment Note PT-OP-A Visit Information Start: 03/22/23 08:41 Freq: Status: Active Protocol: Document 04/06/23 10:36 LRN (Rec: 04/06/23 11:20 LRN [id number]) Out-Patient Physical Therapy Visit Information Visit Information Visit Type Treatment Note Visit Start Time 10:36 Visit Stop Time 11:14 Total Visit Minutes 38 Visit Number 2 Evaluation Information Evaluation Date 03/22/23 PT-OP-B Current Condition Start: 03/22/23 08:41 Freq: Status: Active Protocol: Document 03/22/23 08:45 AMH (Rec: 03/22/23 09:10 AMH [id number]) Current Condition History of Current Condition Onset Date summer 2022 Current Complaints incomplete bladder emptying, difficulty starting the flow of urine History of Current Condition 32 year old female with hypotonic bladder, pelvic pain , incomplete bladder emptying Her symptoms began quite a awhile after she had her son with . Her son was born in May 2021. Her symptoms started in 2022. She started noticing it was difficut for her to start urinating and she needs to bare down to void. She notes she is not able to fully empty and felt like her bladder was full. She notes that her low back and pelvis were very painful after she had her son. She felt like her pelvis was off. SHe notes she didn't have a lot of help post and she notes she held her bladder quite a bit when her son was breast feeding or asleep on her. Now she has been working on voiding when she gets the urge, she did learn how to self cath. She also notes she goes in cycles where she is voiding normally and then it cycles back to not good. She drinks around 100 oz of water per day and rarely does caffeine. PT-OP-C Subjective Start: 03/22/23 08:41 Freq: Status: Active Protocol: Document 04/06/23 10:36 LRN (Rec: 04/06/23 11:20 LRN [id number]) OP-PT Subjective Patient Comments Patient Comments [place] good the day of treatment . 2 days later had a rough day, but went home and used ice. Feels good today. Haven 't stretched. Don't feel there has been a time that she has to put effort into starting urination. PT-OP-F Manual Assessment Start: 03/22/23 08:41 Freq: Status: Active Protocol: Document 03/22/23 08:45 AMH (Rec: 03/22/23 15:42 AMH [id number]) Manual Assessments Soft Tissue Assessment Soft Tissue Mobility Assessment tightness and guarding in the levator ani more so on the left lateral wall and the anterior pelvic floor B Tightness and guarding of the adductors B PT-OP-I Pelvic Floor Start: 03/22/23 08:41 Freq: Status: Active Protocol: Document 03/22/23 08:45 AMH (Rec: 03/22/23 15:42 AMH [id number]) Pelvic Floor Assessment Urine Pelvic Floor Surgery No Urinary Symptoms Incomplete Emptying Other Urinary Symptoms difficulty starting the stream of urine Pelvic Clock Pelvic Clock 12-3 Guarding Pelvic Clock 3-6 Guarding Pelvic Clock 9-12 Guarding Contraction Ability Voluntary Contraction Moderate Voluntary Relaxation Moderate Manual Muscle Testing Left 5 Manual Muscle Testing Right 5 Manual Muscle Testing Anterior 5 Manual Muscle Testing Posterior 5 Muscle Endurance (Seconds) 5 PT-OP-K Range of Motion Start: 03/22/23 16:15 Freq: Status: Active Protocol: Document 03/22/23 08:45 AMH (Rec: 03/22/23 16:16 AMH [id number]) Hip Goniometric Range of Motion Hip ROM Limitations Hip ROM Limitations Soft Tissue Tightness Comments hip abduction and hip extension B as she is tight and restricted in adductors and iliopsoas PT-OP-Q Treatments Start: 03/22/23 08:41 Freq: Status: Active Protocol: Document 04/06/23 10:36 LRN (Rec: 04/06/23 11:20 LRN [id number]) Manual Therapy Treatment Soft Tissue Mobilization Quads Body Location Antolin Quads Mobilization Type Other Body Position Supine Comments C/R MFR stretch iliopsoas release B Body Location Antolin Iliopsoas Mobilization Type Other Body Position Supine Comments C/R stretch In Tony test position working into a stretch for the iliopsoas, f/b active hip ext of bridge ( foot on floor) adductor release B Body Location Antolin Adductor release Mobilization Type Trigger Point Release,Other Body Position Supine Comments c/r stretch to hip AD after TrP treatment. Stretch left greater than right adductor tightness, MFR to L hip AD, holding AD's with L LE hip IR and AB. PT-OP-T Assessment and Plan Start: 03/22/23 08:41 Freq: Status: Active Protocol: Document 04/06/23 10:36 LRN (Rec: 04/06/23 11:20 LRN [id number]) Physical Therapy Assessment Goals 3 Impairment pelvic floor guarding and tightness on the anterior and left lateral araujo of the levator ani 2 Impairment incomplete bladder emptying and difficulty initiating the stream of urine [employer] Goal (LTG) With relaxation of the pelvic floor, bladder retraining, and toileting positions Piper is able to fully empty her bladder LTG Duration 12 weeks 1 Impairment Bilateral low back and right sided pelvic pain rated 5-6/10 Short Term Goal (STG) Piper is educated in stretches for the hips, low back, and pelvic floor to help reduce tension and pain STG Duration 4 weeks [facility] Goal (LTG) Piper reports a overall reduction in pain in the low back and anterior pelvis and notes pain levels have decreased by 2-3 points or better Assessment Summary Assessment Since STM of hip AD's voiding has improved. Taking longer to empty, but doesn't feel she has to strain to empty. No hesistation with urination. Pt feeling looser after therapy. Positive response to STM. Physical Therapy Plan Frequency and Duration Frequency of Treatment 1x/Week Duration of treatment (weeks) 12 Plan of Care Start Date 03/22/23 Plan of Care End Date 06/14/23 Next Visit Focus/Plan Next Note Type Treatment Note Next Visit Plan Next: Educate in Body Mechanics. Assess tone of adductors, iliopsoas; stretch levator ani.
--- NOTE | 2023-04-23 07:57 | PT-OP ANOTE ---
Msg left notifying pt of missed appt and the date/time of her next appt.
--- NOTE | 2023-05-03 16:28 | PT.OTN ---
Current Diagnoses Flaccid neuropathic bladder, not elsewhere classified (05/03/23) Pelvic and perineal pain (05/03/23) Feeling of incomplete bladder emptying (05/03/23) Physical Therapy Treatment Note PT-OP-A Visit Information Start: 03/22/23 08:41 Freq: Status: Active Protocol: Document 05/03/23 13:45 [facility] (Rec: 05/03/23 14:33 [facility] [id number]) Out-Patient Physical Therapy Visit Information Visit Information Visit Type Treatment Note Visit Start Time 13:45 Visit Stop Time 14:30 Total Visit Minutes 45 Visit Number 3 PT-OP-B Current Condition Start: 03/22/23 08:41 Freq: Status: Active Protocol: Document 03/22/23 08:45 [facility] (Rec: 03/22/23 09:10 [facility] [id number]) Current Condition History of Current Condition Onset Date summer 2022 Current Complaints incomplete bladder emptying, difficulty starting the flow of urine History of Current Condition 32 year old female with hypotonic bladder, pelvic pain , incomplete bladder emptying Her symptoms began quite a awhile after she had her son with . Her son was born in May 2021. Her symptoms started in 2022. She started noticing it was difficut for her to start urinating and she needs to bare down to void. She notes she is not able to fully empty and felt like her bladder was full. She notes that her low back and pelvis were very painful after she had her son. She felt like her pelvis was off. SHe notes she didn't have a lot of help post and she notes she held her bladder quite a bit when her son was breast feeding or asleep on her. Now she has been working on voiding when she gets the urge, she did learn how to self cath. She also notes she goes in cycles where she is voiding normally and then it cycles back to not good. She drinks around 100 oz of water per day and rarely does caffeine. PT-OP-C Subjective Start: 03/22/23 08:41 Freq: Status: Active Protocol: Document 05/03/23 13:45 [facility] (Rec: 05/03/23 14:33 [facility] [id number]) OP-PT Subjective Patient Comments Patient Comments pt notes she got the pelvic wand but has been difficult to find time to do it. She has been doing the exercises every single day. She has been drinking a lot more water. no longer needing to self cath and there are good improvements with days where she is fully emptying her bladder. She notes if she is stressed she can still feel like it takes longer to empty Patient Reported Progress Improving PT-OP-F Manual Assessment Start: 03/22/23 08:41 Freq: Status: Active Protocol: Document 03/22/23 08:45 [facility] (Rec: 03/22/23 15:42 [facility] [id number]) Manual Assessments Soft Tissue Assessment Soft Tissue Mobility Assessment tightness and guarding in the levator ani more so on the left lateral wall and the anterior pelvic floor B Tightness and guarding of the adductors B PT-OP-I Pelvic Floor Start: 03/22/23 08:41 Freq: Status: Active Protocol: Document 03/22/23 08:45 [facility] (Rec: 03/22/23 15:42 [facility] [id number]) Pelvic Floor Assessment Urine Pelvic Floor Surgery No Urinary Symptoms Incomplete Emptying Other Urinary Symptoms difficulty starting the stream of urine Pelvic Clock Pelvic Clock 12-3 Guarding Pelvic Clock 3-6 Guarding Pelvic Clock 9-12 Guarding Contraction Ability Voluntary Contraction Moderate Voluntary Relaxation Moderate Manual Muscle Testing Left 5 Manual Muscle Testing Right 5 Manual Muscle Testing Anterior 5 Manual Muscle Testing Posterior 5 Muscle Endurance (Seconds) 5 PT-OP-K Range of Motion Start: 03/22/23 16:15 Freq: Status: Active Protocol: Document 03/22/23 08:45 [facility] (Rec: 03/22/23 16:16 [facility] [id number]) Hip Goniometric Range of Motion Hip ROM Limitations Hip ROM Limitations Soft Tissue Tightness Comments hip abduction and hip extension B as she is tight and restricted in adductors and iliopsoas PT-OP-Q Treatments Start: 03/22/23 08:41 Freq: Status: Active Protocol: Document 05/03/23 13:45 [facility] (Rec: 05/03/23 14:33 [facility] [id number]) Therapeutic Exercises Supine Exercises EMG biofeedback Supine Exercise Name 15.3 uv 86.7 pelvic floor long holds Reps/Minutes resting tone 3.0 uv Comments x 5 reps Manual Therapy Treatment Soft Tissue Mobilization left side levator ani release Comments worked on manual release of the levator ani on the left as it is still a little guarded. Better than at initial eval adductor release B Body Location left sided adductor release Mobilization Type Myofascial Release,Trigger Point Release,Other Body Position Supine Comments pt notes good relief with adductor release PT-OP-T Assessment and Plan Start: 03/22/23 08:41 Freq: Status: Active Protocol: Document 05/03/23 13:45 [facility] (Rec: 05/03/23 14:33 [facility] [id number]) Physical Therapy Assessment Goals 3 Impairment pelvic floor guarding and tightness on the anterior and left lateral araujo of the levator ani 2 Impairment incomplete bladder emptying and difficulty initiating the stream of urine Bruise Trimmer Goal (LTG) With relaxation of the pelvic floor, bladder retraining, and toileting positions Piper is able to fully empty her bladder 05/03/23 on days when she is stressed Piper notes its more difficult to start the flow but she has had days recently where she is voiding and can empty her bladder all the way LTG Duration 12 weeks 1 Impairment Bilateral low back and right sided pelvic pain rated 5-6/10 Short Term Goal (STG) Piper is educated in stretches for the hips, low back, and pelvic floor to help reduce tension and pain STG Duration 4 weeks Fpc Goal (LTG) Piper reports a overall reduction in pain in the low back and anterior pelvis and notes pain levels have decreased by 2-3 points or better 05/03/23 Assessment Summary Assessment Adductor release really helps with symptoms, I did work on left side levator ani release and Piper did well with this. I also started her with gentle pelvic floor contract relax to help with SI stabilization as she feels she is unstable in her SI joint. SHe was able to compete 5 reps before she started experiencing back pain . I talked to her about just doing a few at a time with double the time for relaxation . I found no guarding on the right side of the levator ani today Physical Therapy Plan Frequency and Duration Frequency of Treatment 1x/Week Duration of treatment (weeks) 12 Plan of Care Start Date 03/22/23 Plan of Care End Date 06/14/23 Therapeutic Interventions Therapeutic Interventions Home Exercise Program,Manual Therapy,Neuromuscular Re- education,Self-Care/Home Management,Soft Tissue Mobilization,Therapeutic Exercises Modalities Biofeedback
--- NOTE | 2023-05-11 11:47 | PT.OTN ---
Current Diagnoses Flaccid neuropathic bladder, not elsewhere classified (05/11/23) Pelvic and perineal pain (05/11/23) Feeling of incomplete bladder emptying (05/11/23) Physical Therapy Treatment Note PT-OP-A Visit Information Start: 03/22/23 08:41 Freq: Status: Active Protocol: Document 05/11/23 10:37 LRN (Rec: 05/11/23 11:43 [facility] [id number]) Out-Patient Physical Therapy Visit Information Visit Information Visit Type Treatment Note Visit Start Time 10:37 Visit Stop Time 11:28 Total Visit Minutes 51 Visit Number 4 Evaluation Information Evaluation Date 03/22/23 PT-OP-B Current Condition Start: 03/22/23 08:41 Freq: Status: Active Protocol: Document 03/22/23 08:45 [facility] (Rec: 03/22/23 09:10 [facility] [id number]) Current Condition History of Current Condition Onset Date summer 2022 Current Complaints incomplete bladder emptying, difficulty starting the flow of urine History of Current Condition 32 year old female with hypotonic bladder, pelvic pain , incomplete bladder emptying Her symptoms began quite a awhile after she had her son with . Her son was born in May 2021. Her symptoms started in 2022. She started noticing it was difficut for her to start urinating and she needs to bare down to void. She notes she is not able to fully empty and felt like her bladder was full. She notes that her low back and pelvis were very painful after she had her son. She felt like her pelvis was off. SHe notes she didn't have a lot of help post and she notes she held her bladder quite a bit when her son was breast feeding or asleep on her. Now she has been working on voiding when she gets the urge, she did learn how to self cath. She also notes she goes in cycles where she is voiding normally and then it cycles back to not good. She drinks around 100 oz of water per day and rarely does caffeine. PT-OP-C Subjective Start: 03/22/23 08:41 Freq: Status: Active Protocol: Document 05/11/23 10:37 LRN (Rec: 05/11/23 11:43 [facility] [id number]) OP-PT Subjective Patient Comments Patient Comments Still not having to catheterize. Has had sharp shooting pain upward from low back (pointing to SIJ region). Has had cold for 9 days with coughing. PT-OP-F Manual Assessment Start: 03/22/23 08:41 Freq: Status: Active Protocol: Document 03/22/23 08:45 [facility] (Rec: 03/22/23 15:42 [facility] [id number]) Manual Assessments Soft Tissue Assessment Soft Tissue Mobility Assessment tightness and guarding in the levator ani more so on the left lateral wall and the anterior pelvic floor B Tightness and guarding of the adductors B PT-OP-I Pelvic Floor Start: 03/22/23 08:41 Freq: Status: Active Protocol: Document 03/22/23 08:45 [facility] (Rec: 03/22/23 15:42 [facility] [id number]) Pelvic Floor Assessment Urine Pelvic Floor Surgery No Urinary Symptoms Incomplete Emptying Other Urinary Symptoms difficulty starting the stream of urine Pelvic Clock Pelvic Clock 12-3 Guarding Pelvic Clock 3-6 Guarding Pelvic Clock 9-12 Guarding Contraction Ability Voluntary Contraction Moderate Voluntary Relaxation Moderate Manual Muscle Testing Left 5 Manual Muscle Testing Right 5 Manual Muscle Testing Anterior 5 Manual Muscle Testing Posterior 5 Muscle Endurance (Seconds) 5 PT-OP-K Range of Motion Start: 03/22/23 16:15 Freq: Status: Active Protocol: Document 03/22/23 08:45 [facility] (Rec: 03/22/23 16:16 [facility] [id number]) Hip Goniometric Range of Motion Hip ROM Limitations Hip ROM Limitations Soft Tissue Tightness Comments hip abduction and hip extension B as she is tight and restricted in adductors and iliopsoas PT-OP-Q Treatments Start: 03/22/23 08:41 Freq: Status: Active Protocol: Document 05/11/23 10:37 LRN (Rec: 05/11/23 11:43 [facility] [id number]) Manual Therapy Treatment Soft Tissue Mobilization Sacral Balancing Body Location Sacrum, Illeums Mobilization Type Sustained Pressure Intensity/Depth Moderate Body Position Prone & sup Comments L > R >L Sacral sulcus infer glide, R > L Sacral Sulcus PA glide. L>R sacral shear, L RICK and Ischial Tub PA glide 6 pt sacral balancing x 2 iliopsoas release B Body Location Antolin Iliopsoas Release Mobilization Type Sustained Pressure Body Position Supine Self-Care/Home Management Treatment Education Other Education Pt to tighten TA with all transfers and to sit/stand with equal WBing through LE's for pelvic/sacral stabilization. PT-OP-T Assessment and Plan Start: 03/22/23 08:41 Freq: Status: Active Protocol: Document 05/11/23 10:37 LRN (Rec: 05/11/23 11:43 [facility] [id number]) Physical Therapy Assessment Goals 3 Impairment pelvic floor guarding and tightness on the anterior and left lateral araujo of the levator ani 2 Impairment incomplete bladder emptying and difficulty initiating the stream of urine Preschool Teacher'S Assistant Goal (LTG) With relaxation of the pelvic floor, bladder retraining, and toileting positions Piper is able to fully empty her bladder 05/03/23 on days when she is stressed Piper notes its more difficult to start the flow but she has had days recently where she is voiding and can empty her bladder all the way 05/11/23: Pt feels she is able to fully empty her bladder). LTG Duration 12 weeks (05/11/23: MET GOAL ) 1 Impairment Bilateral low back and right sided pelvic pain rated 5-6/10 Short Term Goal (STG) Piper is educated in stretches for the hips, low back, and pelvic floor to help reduce tension and pain STG Duration 4 weeks Preschool Teacher'S Assistant Goal (LTG) Piper reports a overall reduction in pain in the low back and anterior pelvis and notes pain levels have decreased by 2-3 points or better 05/03/23 Assessment Summary Assessment + response to manual therapy. Pt had minor low back discomfort to start, ending without LBP (sacral level). Further core/pelvis stab is needed. Pt sacrum appears to be quite unstable in positioning, coccygeal ms asymmetry and tight Iliopsoas may be causing sacrum to rotate; therefore further core /pelvic stab is needed. Physical Therapy Plan Frequency and Duration Frequency of Treatment 1x/Week Duration of treatment (weeks) 12 Plan of Care Start Date 03/22/23 Plan of Care End Date 06/14/23 Next Visit Focus/Plan Next Note Type Treatment Note Next Visit Plan Assess response to STM on LBP. Next: Educate in Body Mechanics. Initiate more core/pelvis stabilization (?LE Roll in/outs). Assess tone of adductors, iliopsoas; stretch levator ani .
--- NOTE | 2023-05-17 16:14 | PT.OTN ---
Current Diagnoses Flaccid neuropathic bladder, not elsewhere classified (05/17/23) Pelvic and perineal pain (05/17/23) Feeling of incomplete bladder emptying (05/17/23) Physical Therapy Treatment Note PT-OP-A Visit Information Start: 03/22/23 08:41 Freq: Status: Active Protocol: Document 05/17/23 09:49 [facility] (Rec: 05/17/23 10:35 [facility] [id number]) Out-Patient Physical Therapy Visit Information Visit Information Visit Type Treatment Note Visit Start Time 09:49 Visit Stop Time 10:30 Total Visit Minutes 41 Visit Number 5 PT-OP-B Current Condition Start: 03/22/23 08:41 Freq: Status: Active Protocol: Document 03/22/23 08:45 [facility] (Rec: 03/22/23 09:10 [facility] [id number]) Current Condition History of Current Condition Onset Date summer 2022 Current Complaints incomplete bladder emptying, difficulty starting the flow of urine History of Current Condition 32 year old female with hypotonic bladder, pelvic pain , incomplete bladder emptying Her symptoms began quite a awhile after she had her son with . Her son was born in May 2021. Her symptoms started in 2022. She started noticing it was difficut for her to start urinating and she needs to bare down to void. She notes she is not able to fully empty and felt like her bladder was full. She notes that her low back and pelvis were very painful after she had her son. She felt like her pelvis was off. SHe notes she didn't have a lot of help post and she notes she held her bladder quite a bit when her son was breast feeding or asleep on her. Now she has been working on voiding when she gets the urge, she did learn how to self cath. She also notes she goes in cycles where she is voiding normally and then it cycles back to not good. She drinks around 100 oz of water per day and rarely does caffeine. PT-OP-C Subjective Start: 03/22/23 08:41 Freq: Status: Active Protocol: Document 05/17/23 09:49 [facility] (Rec: 05/17/23 10:35 [facility] [id number]) OP-PT Subjective Patient Comments Patient Comments voiding has been great, no problems and she is voiding all the way. Piper reports she was sick over [place] and hasn't been able to do exercises or work. Her back does feel a little better due to not working. Patient Reported Progress Improving PT-OP-F Manual Assessment Start: 03/22/23 08:41 Freq: Status: Active Protocol: Document 03/22/23 08:45 [facility] (Rec: 03/22/23 15:42 [facility] [id number]) Manual Assessments Soft Tissue Assessment Soft Tissue Mobility Assessment tightness and guarding in the levator ani more so on the left lateral wall and the anterior pelvic floor B Tightness and guarding of the adductors B PT-OP-I Pelvic Floor Start: 03/22/23 08:41 Freq: Status: Active Protocol: Document 03/22/23 08:45 [facility] (Rec: 03/22/23 15:42 [facility] [id number]) Pelvic Floor Assessment Urine Pelvic Floor Surgery No Urinary Symptoms Incomplete Emptying Other Urinary Symptoms difficulty starting the stream of urine Pelvic Clock Pelvic Clock 12-3 Guarding Pelvic Clock 3-6 Guarding Pelvic Clock 9-12 Guarding Contraction Ability Voluntary Contraction Moderate Voluntary Relaxation Moderate Manual Muscle Testing Left 5 Manual Muscle Testing Right 5 Manual Muscle Testing Anterior 5 Manual Muscle Testing Posterior 5 Muscle Endurance (Seconds) 5 PT-OP-K Range of Motion Start: 03/22/23 16:15 Freq: Status: Active Protocol: Document 03/22/23 08:45 [facility] (Rec: 03/22/23 16:16 [facility] [id number]) Hip Goniometric Range of Motion Hip ROM Limitations Hip ROM Limitations Soft Tissue Tightness Comments hip abduction and hip extension B as she is tight and restricted in adductors and iliopsoas PT-OP-Q Treatments Start: 03/22/23 08:41 Freq: Status: Active Protocol: Document 05/17/23 09:49 [facility] (Rec: 05/17/23 10:35 [facility] [id number]) Therapeutic Exercises Supine Exercises TA with july Reps/Minutes 2 x 10 reps supine ball squeeze Reps/Minutes x 10 reps hip flexor stretch Supine Exercise Name started with single knee to chest stretch for hip flexors Side right Reps/Minutes 1-2 min Manual Therapy Treatment Soft Tissue Mobilization iliopsoas release B Body Location Antolin Iliopsoas Release Mobilization Type Sustained Pressure Body Position Supine adductor release B Body Location left sided adductor release Mobilization Type Myofascial Release,Trigger Point Release,Other Body Position Supine Comments pt notes good relief with adductor release Manual Techniques MET for left anterior innominant Reps/Duration x 5 reps Comments pt shown how to self correct for home PT-OP-T Assessment and Plan Start: 03/22/23 08:41 Freq: Status: Active Protocol: Document 05/17/23 09:49 [facility] (Rec: 05/17/23 10:35 [facility] [id number]) Physical Therapy Assessment Goals 3 Impairment pelvic floor guarding and tightness on the anterior and left lateral araujo of the levator ani 2 Impairment incomplete bladder emptying and difficulty initiating the stream of urine Shelter Goal (LTG) With relaxation of the pelvic floor, bladder retraining, and toileting positions Piper is able to fully empty her bladder 05/03/23 on days when she is stressed Piper notes its more difficult to start the flow but she has had days recently where she is voiding and can empty her bladder all the way 05/11/23: Pt feels she is able to fully empty her bladder). LTG Duration 12 weeks (05/11/23: MET GOAL ) 1 Impairment Bilateral low back and right sided pelvic pain rated 5-6/10 Short Term Goal (STG) Piper is educated in stretches for the hips, low back, and pelvic floor to help reduce tension and pain STG Duration 4 weeks Principal Software Architect Goal (LTG) Piper reports a overall reduction in pain in the low back and anterior pelvis and notes pain levels have decreased by 2-3 points or better 05/03/23 Assessment Summary Assessment worked on releasing the adductors and iliopsoas today and left side is still tighter than the right, MET was performed for left anterior innominant and Piper was shown how to self correct for home. I initated TA stabilization exercises for her and she tolerated this well Physical Therapy Plan Frequency and Duration Frequency of Treatment 1x/Week Duration of treatment (weeks) 12 Plan of Care Start Date 03/22/23 Plan of Care End Date 06/14/23 Therapeutic Interventions Therapeutic Interventions Home Exercise Program,Manual Therapy,Neuromuscular Re- education,Self-Care/Home Management,Soft Tissue Mobilization,Therapeutic Exercises Modalities Biofeedback Next Visit Focus/Plan Next Note Type Treatment Note Next Visit Plan assess tone of adductors and iliopsoas, review TA with marching and look at leg length
--- NOTE | 2023-05-24 12:19 | PT.OTN ---
Current Diagnoses Flaccid neuropathic bladder, not elsewhere classified (05/24/23) Pelvic and perineal pain (05/24/23) Feeling of incomplete bladder emptying (05/24/23) Physical Therapy Treatment Note PT-OP-A Visit Information Start: 03/22/23 08:41 Freq: Status: Active Protocol: Document 05/24/23 11:18 LRN (Rec: 05/24/23 12:18 LRN [id number]) Out-Patient Physical Therapy Visit Information Visit Information Visit Type Treatment Note Visit Start Time 11:18 Visit Stop Time 12:01 Total Visit Minutes 43 Visit Number 6 Evaluation Information Evaluation Date 03/22/23 PT-OP-B Current Condition Start: 03/22/23 08:41 Freq: Status: Active Protocol: Document 03/22/23 08:45 [facility] (Rec: 03/22/23 09:10 [facility] [id number]) Current Condition History of Current Condition Onset Date summer 2022 Current Complaints incomplete bladder emptying, difficulty starting the flow of urine History of Current Condition 32 year old female with hypotonic bladder, pelvic pain , incomplete bladder emptying Her symptoms began quite a awhile after she had her son with . Her son was born in May 2021. Her symptoms started in 2022. She started noticing it was difficut for her to start urinating and she needs to bare down to void. She notes she is not able to fully empty and felt like her bladder was full. She notes that her low back and pelvis were very painful after she had her son. She felt like her pelvis was off. SHe notes she didn't have a lot of help post and she notes she held her bladder quite a bit when her son was breast feeding or asleep on her. Now she has been working on voiding when she gets the urge, she did learn how to self cath. She also notes she goes in cycles where she is voiding normally and then it cycles back to not good. She drinks around 100 oz of water per day and rarely does caffeine. PT-OP-C Subjective Start: 03/22/23 08:41 Freq: Status: Active Protocol: Document 05/24/23 11:18 LRN (Rec: 05/24/23 12:18 LRN [id number]) OP-PT Subjective Patient Comments Patient Comments Couple days after last STM was good and now somedays better, somedays worse. Was better when she got sick and didn't have to work and clean. Now sore because was physically active after not being active. PT-OP-F Manual Assessment Start: 03/22/23 08:41 Freq: Status: Active Protocol: Document 03/22/23 08:45 AMH (Rec: 03/22/23 15:42 AMH [id number]) Manual Assessments Soft Tissue Assessment Soft Tissue Mobility Assessment tightness and guarding in the levator ani more so on the left lateral wall and the anterior pelvic floor B Tightness and guarding of the adductors B PT-OP-I Pelvic Floor Start: 03/22/23 08:41 Freq: Status: Active Protocol: Document 03/22/23 08:45 AMH (Rec: 03/22/23 15:42 AMH [id number]) Pelvic Floor Assessment Urine Pelvic Floor Surgery No Urinary Symptoms Incomplete Emptying Other Urinary Symptoms difficulty starting the stream of urine Pelvic Clock Pelvic Clock 12-3 Guarding Pelvic Clock 3-6 Guarding Pelvic Clock 9-12 Guarding Contraction Ability Voluntary Contraction Moderate Voluntary Relaxation Moderate Manual Muscle Testing Left 5 Manual Muscle Testing Right 5 Manual Muscle Testing Anterior 5 Manual Muscle Testing Posterior 5 Muscle Endurance (Seconds) 5 PT-OP-K Range of Motion Start: 03/22/23 16:15 Freq: Status: Active Protocol: Document 03/22/23 08:45 AMH (Rec: 03/22/23 16:16 AMH [id number]) Hip Goniometric Range of Motion Hip ROM Limitations Hip ROM Limitations Soft Tissue Tightness Comments hip abduction and hip extension B as she is tight and restricted in adductors and iliopsoas PT-OP-Q Treatments Start: 03/22/23 08:41 Freq: Status: Active Protocol: Document 05/24/23 11:18 LRN (Rec: 05/24/23 12:18 LRN [id number]) Therapeutic Exercises Supine Exercises Feet on wall/DB/Roll in-outs/Kegel Supine Exercise Name Feet on wall/DB/roll in-out/ Kegel with roll out Equipment Used L1 TB/Ball Comments Cuing to relax PF on roll in DB/LE roll in-out/Kegel Supine Exercise Name DB/LE roll in-out/Kegel Reps/Minutes 4x DB/LE roll in/out Supine Exercise Name Deep Breath (DB)/LE roll in/ out Reps/Minutes 4x Deep Breathing Supine Exercise Name Deep Breath (DB) Comments 2x happy baby stretch Supine Exercise Name Happy Baby stretch Reps/Minutes 1 SH x 2 Comments Cuing to stretch after PF contractions Manual Therapy Treatment Soft Tissue Mobilization adductor release B Body Location Right sided adductor release Mobilization Type Myofascial Release,Trigger Point Release,Other Body Position Supine Comments pt notes good relief with adductor release Self-Care/Home Management Treatment Education Patient Education Body Mechanics,Posture Other Education Pt educated in proper body mechanics, body mechanics for ADLs, posture for safe meovement, and proper posture in sit and stand. Discussed and problem solved for pt's situations at work requiring her to bend over, on how to modify to limit bending. PT-OP-T Assessment and Plan Start: 03/22/23 08:41 Freq: Status: Active Protocol: Document 05/24/23 11:18 LRN (Rec: 05/24/23 12:18 LRN [id number]) Physical Therapy Assessment Goals 3 Impairment pelvic floor guarding and tightness on the anterior and left lateral araujo of the levator ani 2 Impairment incomplete bladder emptying and difficulty initiating the stream of urine Usp Goal (LTG) With relaxation of the pelvic floor, bladder retraining, and toileting positions Piper is able to fully empty her bladder 05/03/23 on days when she is stressed Piper notes its more difficult to start the flow but she has had days recently where she is voiding and can empty her bladder all the way 05/11/23: Pt feels she is able to fully empty her bladder). LTG Duration 12 weeks (05/11/23: MET GOAL ) 1 Impairment Bilateral low back and right sided pelvic pain rated 5-6/10 Short Term Goal (STG) Piper is educated in stretches for the hips, low back, and pelvic floor to help reduce tension and pain STG Duration 4 weeks [employer] Goal (LTG) Piper reports a overall reduction in pain in the low back and anterior pelvis and notes pain levels have decreased by 2-3 points or better 05/03/23 Assessment Summary Assessment Leg lengths are even & PSIS' are level. Pt tight in R hip Adductors compared to L. Pt receptive to body mechanics and posture training. No c/o of tightness of discomfort with LE roll in/outs for pelvic stabilization. Pt to stretch PF after ex if doing with Kegels, but pt to focus on doing ex for pelvic stabilization. Physical Therapy Plan Frequency and Duration Frequency of Treatment 1x/Week Duration of treatment (weeks) 12 Plan of Care Start Date 03/22/23 Plan of Care End Date 06/14/23 Next Visit Focus/Plan Next Note Type Treatment Note Next Visit Plan Assess response to modification of work with proper body mechanics in mind. Assess tone of iliopsoas, review TA with marching. Cont core/pelvis stabilization. Add stretches for the hips, low back (STG #1).
--- NOTE | 2023-06-14 17:50 | PT.OTN ---
Current Diagnoses Flaccid neuropathic bladder, not elsewhere classified (06/14/23) Pelvic and perineal pain (06/14/23) Feeling of incomplete bladder emptying (06/14/23) Physical Therapy Treatment Note PT-OP-A Visit Information Start: 03/22/23 08:41 Freq: Status: Active Protocol: Document 06/14/23 17:46 AMH (Rec: 06/14/23 17:46 [facility] [id number]) Out-Patient Physical Therapy Visit Information Visit Information Visit Type Treatment Note Visit Start Time 13:00 Visit Stop Time 13:45 Visit Number 7 PT-OP-B Current Condition Start: 03/22/23 08:41 Freq: Status: Active Protocol: Document 03/22/23 08:45 AMH (Rec: 03/22/23 09:10 [facility] [id number]) Current Condition History of Current Condition Onset Date summer 2022 Current Complaints incomplete bladder emptying, difficulty starting the flow of urine History of Current Condition 32 year old female with hypotonic bladder, pelvic pain , incomplete bladder emptying Her symptoms began quite a awhile after she had her son with . Her son was born in May 2021. Her symptoms started in 2022. She started noticing it was difficut for her to start urinating and she needs to bare down to void. She notes she is not able to fully empty and felt like her bladder was full. She notes that her low back and pelvis were very painful after she had her son. She felt like her pelvis was off. SHe notes she didn't have a lot of help post and she notes she held her bladder quite a bit when her son was breast feeding or asleep on her. Now she has been working on voiding when she gets the urge, she did learn how to self cath. She also notes she goes in cycles where she is voiding normally and then it cycles back to not good. She drinks around 100 oz of water per day and rarely does caffeine. PT-OP-C Subjective Start: 03/22/23 08:41 Freq: Status: Active Protocol: Document 06/14/23 13:02 AMH (Rec: 06/14/23 13:44 [facility] [id number]) OP-PT Subjective Patient Comments Patient Comments pt notes her back and pelvic is feling good, bladder is doing well. She is moving and had PT-OP-F Manual Assessment Start: 03/22/23 08:41 Freq: Status: Active Protocol: Document 03/22/23 08:45 AMH (Rec: 03/22/23 15:42 AMH [id number]) Manual Assessments Soft Tissue Assessment Soft Tissue Mobility Assessment tightness and guarding in the levator ani more so on the left lateral wall and the anterior pelvic floor B Tightness and guarding of the adductors B PT-OP-I Pelvic Floor Start: 03/22/23 08:41 Freq: Status: Active Protocol: Document 03/22/23 08:45 AMH (Rec: 03/22/23 15:42 AMH [id number]) Pelvic Floor Assessment Urine Pelvic Floor Surgery No Urinary Symptoms Incomplete Emptying Other Urinary Symptoms difficulty starting the stream of urine Pelvic Clock Pelvic Clock 12-3 Guarding Pelvic Clock 3-6 Guarding Pelvic Clock 9-12 Guarding Contraction Ability Voluntary Contraction Moderate Voluntary Relaxation Moderate Manual Muscle Testing Left 5 Manual Muscle Testing Right 5 Manual Muscle Testing Anterior 5 Manual Muscle Testing Posterior 5 Muscle Endurance (Seconds) 5 PT-OP-K Range of Motion Start: 03/22/23 16:15 Freq: Status: Active Protocol: Document 03/22/23 08:45 AMH (Rec: 03/22/23 16:16 AMH [id number]) Hip Goniometric Range of Motion Hip ROM Limitations Hip ROM Limitations Soft Tissue Tightness Comments hip abduction and hip extension B as she is tight and restricted in adductors and iliopsoas PT-OP-Q Treatments Start: 03/22/23 08:41 Freq: Status: Active Protocol: Document 06/14/23 13:02 AMH (Rec: 06/14/23 13:44 AM[facility] [id number]) Therapeutic Exercises Supine Exercises hamstring stretch B Reps/Minutes hold 1-2 min piriformis stretch Reps/Minutes hold 1-2 min TA with march Reps/Minutes 2 x 10 reps hip flexor stretch Supine Exercise Name started with single knee to chest stretch for hip flexors Side right Reps/Minutes 1-2 min supine pelvic floor stretch Reps/Minutes hold 1-2 min Sidelying Exercises clam shells Reps/Minutes 2 x 10 reps Self-Care/Home Management Treatment Education Patient Education Body Mechanics,Home Exercise Program,Pain Management, Posture PT-OP-T Assessment and Plan Start: 03/22/23 08:41 Freq: Status: Active Protocol: Document 06/14/23 17:46 AMH (Rec: 06/14/23 17:48 [facility] [id number]) Physical Therapy Assessment Goals 3 Impairment pelvic floor guarding and tightness on the anterior and left lateral araujo of the levator ani Snf Goal (LTG) GOAl met, Piper is able to fully relax her pelvic floor and has no complaints of guarding 2 Impairment incomplete bladder emptying and difficulty initiating the stream of urine Snf Goal (LTG) With relaxation of the pelvic floor, bladder retraining, and toileting positions Piper is able to fully empty her bladder 05/03/23 on days when she is stressed Piper notes its more difficult to start the flow but she has had days recently where she is voiding and can empty her bladder all the way 05/11/23: Pt feels she is able to fully empty her bladder). LTG Duration 12 weeks (05/11/23: MET GOAL ) 1 Impairment Bilateral low back and right sided pelvic pain rated 5-6/10 Short Term Goal (STG) Piper is educated in stretches for the hips, low back, and pelvic floor to help reduce tension and pain GOAL MET STG Duration 4 weeks [place] [employer] Goal (LTG) Piper reports a overall reduction in pain in the low back and anterior pelvis goal met Assessment Summary Assessment Piper reports she feels she has met her goals for her pelvic floor and bladder and at this point she is doing really well with her spine. She would like PT for her back in the future as although it is doing well right now she is not sure what flares it. At this point her PT goals have been met and she will be discharged from PT Physical Therapy Plan Discharge Physical Therapy Discharge Reasons Goals Met
== END 2023-08-15 08:50 | disposition home or self-care (01) ==
LOC: PHYS 13:00
PROVIDERS: Family Provider Registered Nurse; PCP Registered Nurse; Referring Provider Physician Assistant; Visit Provider Physician Assistant
DX: N31.2 Flaccid neuropathic bladder, not elsewhere classified (principal); R10.2 Pelvic and perineal pain; R39.14 Feeling of incomplete bladder emptying
CPT/HCPCS: 97110; 97140; 97161; 97535

== ENCOUNTER → 2023-06-21 10:27 | Outpatient (CLI) | payer OTHER, MEDICAID, SELFPAY ==
--- NOTE | 2023-06-21 10:29 | DI.RAD.S_ITS ---
PROCEDURE: XR HAND RT MIN 3V INDICATIONS: HAND PAIN TECHNIQUE: 3 views of the hand(s) acquired. COMPARISON: None. FINDINGS: Bones: No fractures or dislocations. Carpal bones are normally aligned. No suspicious bony lesions. Soft tissues: No suspicious soft tissue calcifications. IMPRESSION: No acute bony abnormality. Approved by: Stephan Montenegro M.D. on 06/21/2023 at 18:38
== END ==
LOC: RAD 10:28
PROVIDERS: Family Provider Registered Nurse; PCP Registered Nurse; Referring Provider Registered Nurse; Visit Provider Registered Nurse
DX: S66.811A Strain of other specified muscles, fascia and tendons at wrist and hand level, right hand, initial encounter (principal); X58.XXXA Exposure to other specified factors, initial encounter
CPT/HCPCS: 73130

== ENCOUNTER → 2023-09-04 11:28 | Outpatient (CLI) | payer OTHER, MEDICAID, SELFPAY ==
--- NOTE | 2023-09-04 11:32 | DI.RAD.S_ITS ---
PROCEDURE: XR HIP W PEL IF DONE RT 2V INDICATIONS: ACUTE PAIN OF RIGHT HIP TECHNIQUE: AP pelvis with lateral view(s) of the right hip(s). COMPARISON: None. FINDINGS: Bones: No fractures or dislocations. Pelvic ring appears intact. No suspicious bony lesions. Soft tissues: The visualized bowel gas pattern is normal. No suspicious soft tissue calcifications. IMPRESSION: No acute bony abnormality. If clinical symptoms persist or clinical suspicion for pathology is high, a repeat examination in 7-10 days, or advanced imaging such as CT or MRI is suggested for further evaluation. Dictated by: Gerard Bliss M.D. on 09/04/2023 at 17:01 Approved by: Gerard Bliss M.D. on 09/04/2023 at 17:01
== END ==
PROVIDERS: Family Provider Registered Nurse; PCP Registered Nurse; Referring Provider Registered Nurse; Visit Provider Registered Nurse
DX: M25.551 Pain in right hip (principal)
CPT/HCPCS: 73502

== ENCOUNTER → 2023-09-25 08:09 | Outpatient (CLI) | payer OTHER, MEDICAID, SELFPAY ==
--- NOTE | 2023-09-25 08:11 | DI.MRI.S_ITS ---
PROCEDURE: MR HIP RT W CON INDICATIONS: RIGHT HIP PAIN TECHNIQUE: After the administration of 10 mL of dilute intra-articular Gadolinium contrast, coronal STIR of the bony pelvis; coronal and oblique axial T1 spin echo with fat saturation, axial T2 fast spin echo with fat saturation, sagittal T1 spin echo with and without fat saturation of the involved hip. COMPARISON: [facility], CR, XR HIP W PEL IF DONE RT 2V, 09/04/2023, 11:32. FINDINGS: Image quality: Excellent. Bones and joints: The visualized lower lumbar spine is unremarkable. The sacrum is intact. Mild subchondral marrow edema about the left inferior sacroiliac joint, concerning for mild degenerative changes. No significant fluid effusion or erosion within the left sacroiliac joint. Bilateral hips are well aligned. No acute fracture or dislocation of either hip. No avascular necrosis of either femoral head. Tendons and ligaments: The right iliopsoas, adductor, hamstring tendon are unremarkable. The right gluteal minimus and gluteus medius are remarkable. Labrum and cartilage: Tear of the posterior labrum (series 7, image 13). Tear of the anterior superior labrum as well. No paralabral cyst. Soft tissues: The uterus is noted. IMPRESSION: 1. Tear of the anterosuperior labrum and the posterior labrum. 2. Findings suggestive of mild degenerative changes of the left sacroiliac joint. Dictated by: Ce Chen M.D. on 09/25/2023 at 10:57 Approved by: Ce Chen M.D. on 09/25/2023 at 11:09
--- NOTE | 2023-09-25 08:11 | DI.RAD.S_ITS ---
PROCEDURE: FL HIP INJECTION MR/CT RT INDICATIONS: RIGHT HIP PAIN TECHNIQUE: The indications, alternatives, benefits, risks, and complications of the procedure were explained to the patient. Written informed consent was obtained and placed in the chart. The hip was examined fluoroscopically with the legs fixed in slight internal rotation, and a site for needle placement chosen for entry into the hip joint from an anterior approach. Care was taken to locate the common femoral artery and vein beforehand. The skin was prepped and draped in a sterile fashion, and 1% Lidocaine infiltrated from skin down to joint capsule. A spinal needle was inserted into the joint, and a small amount of iodinated contrast media injected to confirm intra-articular placement of the needle tip. This was followed by approximately 10 mL dilute solution of a gadolinium containing MR contrast agent. The needle was removed and a dressing was applied. The patient was given postprocedural instructions and sent to the MR suite for imaging. COMPARISON: None. FINDINGS: A single fluoroscopic spot image demonstrates intra-articular location of injected iodinated contrast. IMPRESSION: Successful fluoroscopically guided administration of dilute Gadolinium solution into the hip joint for MR arthrogram. Dictated by: Andriy Perez M.D. on 09/25/2023 at 9:19 Approved by: Andriy Perez M.D. on 09/25/2023 at 9:19
[2023-09-25] MEDS: LIDOCAINE 1% 20 ML INJ (08:43)
[2023-09-25] MEDS: SODIUM CHLORIDE 0.9 % 20 ML VIAL IV (08:43)
== END ==
LOC: RAD 08:10
PROVIDERS: Family Provider Registered Nurse; PCP Registered Nurse
DX: S73.191A Other sprain of right hip, initial encounter (principal)
CPT/HCPCS: 27093; 73525; 73722; A9579; Q9967

== ENCOUNTER 2024-05-05 10:45 | Outpatient (RCR) | payer OTHER, MEDICAID, SELFPAY ==
--- NOTE | 2024-03-10 14:25 | PT.OIE ---
Current Diagnoses Pain in right hip (03/10/24) Stiffness of right hip, not elsewhere classified (03/10/24) Stiffness of other specified joint, not elsewhere classified (03/10/24) Low back pain, unspecified (03/10/24) Other lack of coordination (03/10/24) Weakness (03/10/24) Other sprain of right hip, initial encounter (03/10/24) Past Surgical History (Last Reviewed 02/28/23 @ 02:58 by Ariana Peace DO) History of third molar tooth extraction Status post loop electrosurgical excision procedure (LEEP) of cervix (07/12/09) Visit Care Team Role Provider Type DEBO Brown Family Provider Non-Staff Primary Care Provider Specialty: Family Practice Address: [facility] [place], [address] Email: Chris Jimenez DO Attending Provider Non-Staff Referring Provider Specialty: Orthopedic Surgery Address: [address] [place], [address] Email: Physical Therapy Initial Evaluation PT-OP-A Visit Information Start: 03/10/24 08:05 Freq: Status: Active Protocol: Document 03/10/24 09:00 NM (Rec: 03/10/24 09:48 NM [id number]) Out-Patient Physical Therapy Visit Information Visit Information Visit Type Initial Evaluation Visit Note 22 visits total Visit Start Time 09:03 Visit Stop Time 09:45 Visit Number 06/11 Evaluation Information Evaluation Date 03/10/24 Precautions Precautions Hx R labral tear Latex and tape allergy PT-OP-B Current Condition Start: 03/10/24 08:05 Freq: Status: Active Protocol: Document 03/10/24 09:00 NM (Rec: 03/10/24 09:48 NM [id number]) Current Condition History of Current Condition Onset Date R hip 08/2023, back-chronic Current Complaints pain, weakness, limited standing/gait/stair tolerance History of Current Condition Pt presents with pain in R hip and back. Pt states that her R hip was injured on 09/06/23, she fell on her concrete stairs while carrying both groceries and son; states contorted herself to avoid hurting son. She has had imaging. She has been referred to an orthopedic surgeon but has to have 6 weeks of PT first. She had an injection in November 08 2023. took a while to work but then states worked really well; states that wore off but not as bad as it was. Pt reports impairments in sitting time ( am worse, a few minutes), wants to lie supine initially. Pt also presents with back pain, beginning in 2007. She reports that her pain has been worse since her fall; states has always had low back issues. She reports no specific injuries; states more active with snowboarding/ skateboard. States back also worse since , ~3 years ago. Has stairs in home (up to house, basement). No imaging for back at this time. Reports sharp, shooting samurai sword when has radicular symptoms. 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 MRI of R hip: tear of anterosuperior labrum and posterior labrum, findings suggestive of mild degenerative changes of L sacroiliac joint Treatment Goals Patient/Caregiver Goals reduce pain PT-OP-C Subjective Start: 03/10/24 08:05 Freq: Status: Active Protocol: Document 03/10/24 09:00 NM (Rec: 03/10/24 09:48 NM [id number]) OP-PT Subjective Patient Comments Patient Comments Pt consents to participate in evaluation Patient Questionnaires Lower Extremity Functional Scale LEFS Score 38/80 Oswestry Low Back Index Oswestry Score 34/100 OP-PT Pain Assessment Location back Pain Location Details bandlike pattern Intensity 7 Scale Used Numeric (0 - 10) Description Aching,Dull,Tightness Frequency Frequent Radiating Location to knees (post) R or L; hx SIJ pain; worse am Variations/Patterns worse in am Pain Aggravating Factors Standing,Sitting,Walking Other Pain Aggravating Factors prone Pain Alleviating Factors Cold,Heat,Lying Supine Other Pain Alleviating Factors stretching R hip Pain Location Details groin-anterolateral hip Intensity 5 Scale Used Numeric (0 - 10) Description Aching,Dull,Sharp,Shooting, Throbbing Description- Other hot, gnarly; worst: 7 Frequency Frequent Pain Duration sec-minutes Pain Aggravating Factors Walking,Stair Climbing,Bending Other Pain Aggravating Factors up stairs; inclines; squatting Pain Alleviating Factors Cold,Heat,Medication,Rest PT-OP-F Manual Assessment Start: 03/10/24 08:05 Freq: Status: Active Protocol: Document 03/10/24 09:00 NM (Rec: 03/10/24 11:27 NM [id number]) Manual Assessments Soft Tissue Assessment Soft Tissue Mobility Assessment Tightness of R piriformis and lumbar paraspinals. Increased tightness of R hip flexors Joint Mobility Assessment Joint Mobility Assessment Palpable and audible clicking and catching of R hip with end range hip flexion/rotation. Hypermobility of lumbar spine with PA springing, hypomobility of SIJ B PT-OP-G Mobility & Gait Start: 03/10/24 08:05 Freq: Status: Active Protocol: Document 03/10/24 09:00 NM (Rec: 03/10/24 11:27 NM [id number]) OP Gait Assessment Gait Gait Assistance Required: Independent Distance (Feet) 150 Gait Deviations General Gait Pattern Antalgic,Flexed Trunk Comments Gait Comments Decreased R stance time, slight forward trunk lean with R stance. Stiffer R ankle by observation PT-OP-J Posture/Palpation/Skin Start: 03/10/24 08:05 Freq: Status: Active Protocol: Document 03/10/24 09:00 NM (Rec: 03/10/24 11:27 NM [id number]) Posture Evaluation Position Standing Head/C-Spine Posture Forward Head L-Spine Posture Decreased Lordosis Pelvis Posture (R) Rotated Anterior,(L) Iliac Crest Superior Weight Distribution Weight Shifted Left Hip Posture (L) Externally Rotated,(R) Externally Rotated Knee Posture (L) Genu Valgus,(R) Genu Valgus Palpation Assessment Location lumbar spine Palpation Details Tightness of thoracolumbar paraspinals, QL Muscle guarding at low back Tenderness along PSIS (R>L), SIJ (R>L), lower lumbar spinous processes especially nrear L4-5-S1-2 R hip Palpation Details Tenderness along R groin, carlene-lateral hip anterior to greater trochanter Tenderness and tightness along piriformis B PT-OP-K Range of Motion Start: 03/10/24 08:05 Freq: Status: Active Protocol: Document 03/10/24 09:00 NM (Rec: 03/10/24 09:48 NM [id number]) Lumbar Spine Range of Motion Lumbar Spine Active Percentage Flexion 60 Extension 10 Rotation Left 75 Rotation Right 50 Lateral Flexion Left 25 Lateral Flexion Right 50 Comments pain w/ flexion, ext ++, lateral flexion (R) and rot (R ) Hip Goniometric Range of Motion Hip Right Internal Rotation 32 External Rotation 30 Comments 28 ER, pain w/ both IR > ER Left Internal Rotation 30 External Rotation 30 PT-OP-L Special Tests Start: 03/10/24 08:05 Freq: Status: Active Protocol: Document 03/10/24 09:00 NM (Rec: 03/10/24 09:48 NM [id number]) Special Tests Lumbar Spine Special Tests Traction Test Results + Comments slight symptom relief Straight Leg Raise Test Results - Mcfadden/quadrant Test Results + Comments local pain B Hip Special Tests Stinchfield Resisted Hip Flexion Test Results + Log Roll Test Test Results + Scour Test Results + FADIR Test Results + JUAN A Test Results + PT-OP-M Strength Start: 03/10/24 08:05 Freq: Status: Active Protocol: Document 03/10/24 09:00 NM (Rec: 03/10/24 09:48 NM [id number]) Trunk Strength Trunk Manual Muscle Testing Flexion 3+ Fair+ Extension 3+ Fair+ Rotation Left 3+ Fair+ Rotation Right 3+ Fair+ Lateral Flexion Left 3+ Fair+ Lateral Flexion Right 3+ Fair+ Comments No pain with resisted testing Hip Strength Hip Manual Muscle Testing Right Flexion (L2) 3+ Fair+ Extension (S1) 4- Good- Abduction 4- Good- External Rotation 3 Fair Internal Rotation 3 Fair Comments hip and back pain with flexion , ER, IR Left Flexion (L2) 4- Good- Extension (S1) 4- Good- Abduction 4- Good- External Rotation 3+ Fair+ Internal Rotation 3+ Fair+ Comments back pain with ER/IR Knee Strength Knee Manual Muscle Testing Right Flexion (S2) 4- Good- Extension (L3) 4- Good- Comments hip pain with knee extension Left Flexion (S2) 4 Good Extension (L3) 4 Good PT-OP-Q Treatments Start: 03/10/24 08:05 Freq: Status: Active Protocol: Document 03/10/24 09:00 NM (Rec: 03/10/24 11:27 NM [id number]) Therapeutic Exercises Supine Exercises TrA activation Supine Exercise Name with breath work: 1. activation, 2. BKFO (HEP) Side bilateral Reps/Minutes 1. 1 minute w/ intermittent reps, 2. 10 ea -increased time w/ cueing Comments cued for correct execution, verbal/tactile cues Sidelying Exercises hip IR Side bilateral Resistance AROM Equipment Used towel roll between legs, slight hip extension Reps/Minutes 10 ea with slight hold at end range- increased time w/ cueing Comments pain free at groin/back; fatiguing PT-OP-T Assessment and Plan Start: 03/10/24 08:05 Freq: Status: Active Protocol: Document 03/10/24 09:00 NM (Rec: 03/10/24 11:27 NM [id number]) Physical Therapy Assessment Rehab Potential Rehabilitation Potential Good Evaluation Complexity Number of Personal Factors/Comorbidities 3 or More Number of Body Systems Impaired 1-2 Clinical Presentation at Evaluation Stable Impairments Impairments Activity Tolerance,Functional Activities,Functional Mobility ,Gait,Integument,Pain,Posture, ROM,Soft Tissue Mobility, Strength,Transfers Other Concerns Age Related Concerns PMH: allergies to tape ( adhesive) and latex; arthritis , back and neck pain, hx of C section in 2021 and R ankle repairs (2009, 2012) Barriers to Rehabilitation 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 She has to try PT for at least 6 weeks before following up with surgeon to determine if will proceed with surgery. Pt has had an injection, which helped but is not able to receive a second one for pain management . She has had PT before but did not have a good experience and was not successful. Goals 4 Impairment pain with sitting, standing, lifting Short Term Goal (STG) Pt will be educated on correct body mechanics during lifting and ergonomics in sitting/ standing in order to improve pain symptom management STG Duration 6 week Fdc Goal (LTG) Pt will report that she is able to sit >1 hour without increase in R hip pain in order to be able to perform work-related tasks and play with her son LTG Duration 8 weeks 3 Impairment HEP compliance- not performing an exercise program Impairment . Fdc Goal (LTG) Pt will report compliance with HEP at least 3x/wk in order to maximize progression with PT and transition to maintenance program after discharge from PT LTG Duration 8 weeks 2 Impairment R hip strength impaired Impairment . Weatherization Director Goal (LTG) Pt will increase R hip strength globally to 4/5 except for hip flexion at least 4-/5 in order to demonstrate improved strength for stairs, gait, transfers 1 Impairment trunk strength 3+/5 Impairment . Short Term Goal (STG) Pt will be educated on core bracing strategies and demonstrate core bracing in at least 5/10 reps in order to demonstrate improved proximal stability during ADLs, standing/gait STG Duration 4 weeks Weatherization Director Goal (LTG) Pt will improve global trunk strength to at least 4/10 without increase in low back pain symptoms in order to demonstrate improved proximal stability during ADLs, standing/gait, and when interacting with her son LTG Duration 8 weeks Assessment Summary Assessment Pt is a 33 y.o. presenting with R hip pain beginning in August 2023 secondary to a fall and chronic low back pain without known JENNIFER. She has been assessed by a orthopedic surgeon to address her hip pain but has to trial PT first ; her pain is better managed following an injection but still very limiting. Pt currently has impairments in global standing and sitting tolerance, pain management, AROM, strength, gait, ability to perform ADLs/IADLs and work -related tasks including caring for her son. Pt has limitations in global R hip AROM and strength, in addition to global lumbar spine AROM and strength. Her R hip symptoms are reproduced with JUAN A, FADIR, scour, and log roll testing indicating labral pathology at hip joint. She also had tenderness to palpation at her R hip, B SIJ/ PSIS, and lumbar spine. Pt's hip and lumbar symptoms are consistent with dx and imaging . PT educated pt on exam findings and plan of care. Pt is planning to follow up with surgeon after trialing PT if no improvement. Pt would benefit from skilled PT for progressive hip and trunk AROM and strengthening, in addition to body mechanics and ergonomics training in order to improve symptom management, ADL/activity tolerance, and quality of life. Physical Therapy Plan Frequency and Duration Frequency of Treatment 2x/Week Duration of treatment (weeks) 8 Plan of Care Start Date 03/10/24 Plan of Care End Date 05/09/24 Therapeutic Interventions Therapeutic Interventions Balance Training,Gait Training ,Home Exercise Program,Joint Mobilizations,Manual Therapy, Neuromuscular Re-education, Orthotic/Prosthetic Management ,Patient/Caregiver Education, Self-Care/Home Management, Sensory Integration,Soft Tissue Mobilization, Therapeutic Activities, Therapeutic Exercises Modalities Cold Pack/Ice Massage,Electric Stimulation,Hot Packs, Ultrasound,Vasopneumatic Devices Other Therapeutic Interventions No taping, no mechanical traction due to retrolistheis Trial MET and pelvic realignment exercises Next Visit Focus/Plan Next Visit Plan latex and tape allergy Hip flexion AROM Review HEP provided. Trial quadruped rock backs, passive hip mobility. Initiate strengthening: clam, sated hip abduction in <90 deg hip flexion, TrA and core bracing, flexion biased core, bridging , jennifer quadruped hip/core, wall squats, modified planks
--- NOTE | 2024-03-13 10:44 | PT.OTN ---
Current Diagnoses Pain in right hip (03/13/24) Stiffness of right hip, not elsewhere classified (03/13/24) Stiffness of other specified joint, not elsewhere classified (03/13/24) Low back pain, unspecified (03/13/24) Other lack of coordination (03/13/24) Weakness (03/13/24) Other sprain of right hip, initial encounter (03/13/24) Physical Therapy Treatment Note PT-OP-A Visit Information Start: 03/10/24 08:05 Freq: Status: Active Protocol: Document 03/13/24 07:36 NM (Rec: 03/13/24 07:37 NM [id number]) Out-Patient Physical Therapy Visit Information Visit Information Visit Type Treatment Note Visit Note 22 visits total latex and tape allergy Visit Start Time 08:17 Visit Stop Time 09:00 Visit Number 07/12 Evaluation Information Evaluation Date 03/10/24 Precautions Precautions Hx R labral tear Latex and tape allergy PT-OP-B Current Condition Start: 03/10/24 08:05 Freq: Status: Active Protocol: Document 03/10/24 09:00 NM (Rec: 03/10/24 09:48 NM [id number]) Current Condition History of Current Condition Onset Date R hip 08/2023, back-chronic Current Complaints pain, weakness, limited standing/gait/stair tolerance History of Current Condition Pt presents with pain in R hip and back. Pt states that her R hip was injured on 09/06/23, she fell on her concrete stairs while carrying both groceries and son; states contorted herself to avoid hurting son. She has had imaging. She has been referred to an orthopedic surgeon but has to have 6 weeks of PT first. She had an injection in November 08 2023. States took a while to work but then states worked really well; states that wore off but not as bad as it was. Pt reports impairments in sitting time ( am worse, a few minutes), wants to lie supine initially. Pt also presents with back pain, beginning in 2007. She reports that her pain has been worse since her fall; states has always had low back issues. She reports no specific injuries; states more active with snowboarding/ skateboard. States back also worse since , ~3 years ago. Has stairs in home (up to house, basement). No imaging for back at this time. Reports sharp, shooting jimena salazar when has radicular symptoms. 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 MRI of R hip: tear of anterosuperior labrum and posterior labrum, findings suggestive of mild degenerative changes of L sacroiliac joint Treatment Goals Patient/Caregiver Goals reduce pain PT-OP-C Subjective Start: 03/10/24 08:05 Freq: Status: Active Protocol: Document 03/13/24 07:36 NM (Rec: 03/13/24 07:37 NM [id number]) OP-PT Subjective Patient Comments Patient Comments Pt reports felt ok after evaluation. States 5/10 in low back, states hip is 3/10. Exercises went well after evaluation PT-OP-F Manual Assessment Start: 03/10/24 08:05 Freq: Status: Active Protocol: Document 03/10/24 09:00 NM (Rec: 03/10/24 11:27 NM [id number]) Manual Assessments Soft Tissue Assessment Soft Tissue Mobility Assessment Tightness of R piriformis and lumbar paraspinals. Increased tightness of R hip flexors Joint Mobility Assessment Joint Mobility Assessment Palpable and audible clicking and catching of R hip with end range hip flexion/rotation. Hypermobility of lumbar spine with PA springing, hypomobility of SIJ B PT-OP-G Mobility & Gait Start: 03/10/24 08:05 Freq: Status: Active Protocol: Document 03/10/24 09:00 NM (Rec: 03/10/24 11:27 NM [id number]) OP Gait Assessment Gait Gait Assistance Required: Independent Distance (Feet) 150 Gait Deviations General Gait Pattern Antalgic,Flexed Trunk Comments Gait Comments Decreased R stance time, slight forward trunk lean with R stance. Stiffer R ankle by observation PT-OP-J Posture/Palpation/Skin Start: 03/10/24 08:05 Freq: Status: Active Protocol: Document 03/10/24 09:00 NM (Rec: 03/10/24 11:27 NM [id number]) Posture Evaluation Position Standing Head/C-Spine Posture Forward Head L-Spine Posture Decreased Lordosis Pelvis Posture (R) Rotated Anterior,(L) Iliac Crest Superior Weight Distribution Weight Shifted Left Hip Posture (L) Externally Rotated,(R) Externally Rotated Knee Posture (L) Genu Valgus,(R) Genu Valgus Palpation Assessment Location lumbar spine Palpation Details Tightness of thoracolumbar paraspinals, QL Muscle guarding at low back Tenderness along PSIS (R>L), SIJ (R>L), lower lumbar spinous processes especially nrear L4-5-S1-2 R hip Palpation Details Tenderness along R groin, carlene-lateral hip anterior to greater trochanter Tenderness and tightness along piriformis B PT-OP-K Range of Motion Start: 03/10/24 08:05 Freq: Status: Active Protocol: Document 03/13/24 07:36 NM (Rec: 03/13/24 07:37 NM [id number]) Hip Goniometric Range of Motion Hip Right Flexion w/Knee Flexed 105 Internal Rotation 32 External Rotation 30 Comments 28 ER, pain w/ both IR > ER, flexion Left Flexion w/Knee Flexed 107 Internal Rotation 30 External Rotation 30 Comments pain in low back with flexion PT-OP-L Special Tests Start: 03/10/24 08:05 Freq: Status: Active Protocol: Document 03/10/24 09:00 NM (Rec: 03/10/24 09:48 NM [id number]) Special Tests Lumbar Spine Special Tests Traction Test Results + Comments slight symptom relief Straight Leg Raise Test Results - Mcfadden/quadrant Test Results + Comments local pain B Hip [facility] Flexion Test Results + Log Roll Test Test Results + Scour Test Results + FADIR Test Results + JUAN A Test Results + PT-OP-M Strength Start: 03/10/24 08:05 Freq: Status: Active Protocol: Document 03/10/24 09:00 NM (Rec: 03/10/24 09:48 NM [id number]) Trunk Strength Trunk Manual Muscle Testing Flexion 3+ Fair+ Extension 3+ Fair+ Rotation Left 3+ Fair+ Rotation Right 3+ Fair+ Lateral Flexion Left 3+ Fair+ Lateral Flexion Right 3+ Fair+ Comments No pain with resisted testing Hip Strength Hip Manual Muscle Testing Right Flexion (L2) 3+ Fair+ Extension (S1) 4- Good- Abduction 4- Good- External Rotation 3 Fair Internal Rotation 3 Fair Comments hip and back pain with flexion , ER, IR Left Flexion (L2) 4- Good- Extension (S1) 4- Good- Abduction 4- Good- External Rotation 3+ Fair+ Internal Rotation 3+ Fair+ Comments back pain with ER/IR Knee Strength Knee Manual Muscle Testing Right Flexion (S2) 4- Good- Extension (L3) 4- Good- Comments hip pain with knee extension Left Flexion (S2) 4 Good Extension (L3) 4 Good PT-OP-Q Treatments Start: 03/10/24 08:05 Freq: Status: Active Protocol: Document 03/13/24 07:36 NM (Rec: 03/13/24 07:37 NM [id number]) Therapeutic Exercises Supine Exercises hip flexor stretch Supine Exercise Name madie stretch- HEP Side bilateral Reps/Minutes 60 ea Comments feels really good, L side tighter; no back pain TrA activation Supine Exercise Name with breath work: 1. activation, 2. ppt, 3. bridge segmental Side bilateral Reps/Minutes 1. 10, 2. 15 (to/from neutral) , 3. 10 w/ midrange Comments cued midrange ppt to limit pain; push through heels for glute, breathwork Sidelying Exercises hip ER Sidelying Exercise Name HEP Side right Resistance AROM Reps/Minutes 15 Comments reports no back pain w/ movement but fatigues w/ inc reps; cued breath hip IR Sidelying Exercise Name band added to HEP Side right Resistance AROM > level 1 latex free band Equipment Used towel roll between legs, slight hip extension Reps/Minutes 10 ea with slight hold at end range AROM, 10 w/ band Comments pain free at groin/back; fatiguing Other Exercises quadruped Other Exercise Name 1. quad rock backs (HEP), 2. child pose Side bilateral Reps/Minutes 1. 10 w/ neutral hips, 30 Comments feels good; no back or hip pain Manual Therapy Treatment Consent Patient gave verbal consent for manual Yes treatment Soft Tissue Mobilization R hip Body Location hip flexors, TFL Mobilization Type Rolling,Strumming,Sustained Pressure Intensity/Depth Moderate Body Position Sidelying Comments Tightness demonstrated. Monitored for pain. Performed also with iliac distraction laterally lumbar spine Body Location paraspinals, glutes, QL Mobilization Type Rolling,Strumming,Sustained Pressure Intensity/Depth Moderate Body Position Sidelying Comments 1. w/ sidelying lateral flexion 2. w/ ant pelvic tilt 3. w/ post pelvic tilt Monitored for pain. Best response to gentle stretching in sidelying LF and ppt. PT-OP-T Assessment and Plan Start: 03/10/24 08:05 Freq: Status: Active Protocol: Document 03/13/24 07:36 NM (Rec: 03/13/24 07:37 NM [id number]) Physical Therapy Assessment Goals 4 Impairment pain with sitting, standing, lifting Short Term Goal (STG) Pt will be educated on correct body mechanics during lifting and ergonomics in sitting/ standing in order to improve pain symptom management STG Duration 6 week Mcfp Goal (LTG) Pt will report that she is able to sit >1 hour without increase in R hip pain in order to be able to perform work-related tasks and play with her son LTG Duration 8 weeks 3 Impairment HEP compliance- not performing an exercise program Impairment . 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 Mcfp Goal (LTG) Pt will increase R hip strength globally to 4/5 except for hip flexion at least 4-/5 in order to demonstrate improved strength for stairs, gait, transfers 1 Impairment trunk strength 3+/5 Impairment . Short Term Goal (STG) Pt will be educated on core bracing strategies and demonstrate core bracing in at least 5/10 reps in order to demonstrate improved proximal stability during ADLs, standing/gait STG Duration 4 weeks Mcfp Goal (LTG) Pt will improve global trunk strength to at least 4/10 without increase in low back pain symptoms in order to demonstrate improved proximal stability during ADLs, standing/gait, and when interacting with her son LTG Duration 8 weeks Assessment Summary Assessment Pt responds well to gentle spinal mobility, manual therapy, and therapeutic exercise. Reports less pain at end of session but does not provide pain number, states back feels really good while standing which is not pt's normal. Unable to tolerate increased reps, but can tolerate increased resistance with hip IR. Added segmental bridging with emphasis on breathwork to gentle glute/ hamstring and extensor training. Pt initially has pain but lessened considerably with segmental motion, core bracing and cueing for control . Initially challenged with posterior pelvic tilt but has less pain with motion when cued for more neutral spine. Good response to madie stretch, L side tighter than R . Pt best [place] for quadruped positioning. Piper would benefit from skilled PT for progressive lumbopelvic mobility, hip and trunk strengthening, and body mechanics training in order to improve symptom management and ADL tolerance. Physical Therapy Plan Frequency and Duration Frequency of Treatment 2x/Week Duration of treatment (weeks) 8 Plan of Care Start Date 03/10/24 Plan of Care End Date 05/09/24 Therapeutic Interventions Therapeutic Interventions Balance Training,Gait Training ,Home Exercise Program,Joint Mobilizations,Manual Therapy, Neuromuscular Re-education, Orthotic/Prosthetic Management ,Patient/Caregiver Education, Self-Care/Home Management, Sensory Integration,Soft Tissue Mobilization, Therapeutic Activities, Therapeutic Exercises Modalities Cold Pack/Ice Massage,Electric Stimulation,Hot Packs, Ultrasound,Vasopneumatic Devices Other Therapeutic Interventions No taping, no mechanical traction due to retrolistheis Trial MET and pelvic realignment exercises Next Visit Focus/Plan Next Visit Plan latex and tape allergy Hip flexion AROM Review HEP provided. Trial quadruped rock backs (trial hip IR/ER ROM), passive hip mobility. Initiate strengthening: clam, seated hip abduction in <90 deg hip flexion, TrA and core bracing into flexion, flexion biased core, segmental bridging, jennifer quadruped hip/core. Trial in future- wall squats, modified planks
--- NOTE | 2024-03-17 09:12 | PT.OTN ---
Current Diagnoses Pain in right hip (03/17/24) Stiffness of right hip, not elsewhere classified (03/17/24) Stiffness of other specified joint, not elsewhere classified (03/17/24) Low back pain, unspecified (03/17/24) Other lack of coordination (03/17/24) Weakness (03/17/24) Other sprain of right hip, initial encounter (03/17/24) Physical Therapy Treatment Note PT-OP-A Visit Information Start: 03/10/24 08:05 Freq: Status: Active Protocol: Document 03/17/24 08:10 AB (Rec: 03/17/24 09:12 AB [id number]) Out-Patient Physical Therapy Visit Information Visit Information Visit Type Treatment Note Visit Note 22 visits total latex and tape allergy Visit Start Time 08:16 Visit Stop Time 08:02 Visit Number 08/09 Evaluation Information Evaluation Date 03/10/24 Precautions Precautions Hx R labral tear Latex and tape allergy PT-OP-B Current Condition Start: 03/10/24 08:05 Freq: Status: Active Protocol: Document 03/10/24 09:00 NM (Rec: 03/10/24 09:48 NM [id number]) Current Condition History of Current Condition Onset Date R hip 08/2023, back-chronic Current Complaints pain, weakness, limited standing/gait/stair tolerance History of Current Condition Pt presents with pain in R hip and back. Pt states that her R hip was injured on 09/06/23, she fell on her concrete stairs while carrying both groceries and son; states contorted herself to avoid hurting son. She has had imaging. She has been referred to an orthopedic surgeon but has to have 6 weeks of PT first. She had an injection in November 08 2023. States took a while to work but then states worked really well; states that wore off but not as bad as it was. Pt reports impairments in sitting time ( am worse, a few minutes), wants to lie supine initially. Pt also presents with back pain, beginning in 2007. She reports that her pain has been worse since her fall; states has always had low back issues. She reports no specific injuries; states more active with snowboarding/ skateboard. States back also worse since , ~3 years ago. Has stairs in home (up to house, basement). No imaging for back at this time. Reports sharp, shooting ramilai sword when has radicular symptoms. 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 MRI of R hip: tear of anterosuperior labrum and posterior labrum, findings suggestive of mild degenerative changes of L sacroiliac joint Treatment Goals Patient/Caregiver Goals reduce pain PT-OP-C Subjective Start: 03/10/24 08:05 Freq: Status: Active Protocol: Document 03/17/24 08:10 AB (Rec: 03/17/24 09:12 AB [id number]) OP-PT Subjective Patient Comments Patient Comments Patient reports she is a little better today less stiff . Patient reports increased pain scooting up on plinth, and increased pain with picking up 1 y.o. and even with adjusting son during diaper change. Patient rates pain 6/10 right buttocks. PT-OP-F Manual Assessment Start: 03/10/24 08:05 Freq: Status: Active Protocol: Document 03/10/24 09:00 NM (Rec: 03/10/24 11:27 NM [id number]) Manual Assessments Soft Tissue Assessment Soft Tissue Mobility Assessment Tightness of R piriformis and lumbar paraspinals. Increased tightness of R hip flexors Joint Mobility Assessment Joint Mobility Assessment Palpable and audible clicking and catching of R hip with end range hip flexion/rotation. Hypermobility of lumbar spine with PA springing, hypomobility of SIJ B PT-OP-G Mobility & Gait Start: 03/10/24 08:05 Freq: Status: Active Protocol: Document 03/10/24 09:00 NM (Rec: 03/10/24 11:27 NM [id number]) OP Gait Assessment Gait Gait Assistance Required: Independent Distance (Feet) 150 Gait Deviations General Gait Pattern Antalgic,Flexed Trunk Comments Gait Comments Decreased R stance time, slight forward trunk lean with R stance. Stiffer R ankle by observation PT-OP-J Posture/Palpation/Skin Start: 03/10/24 08:05 Freq: Status: Active Protocol: Document 03/10/24 09:00 NM (Rec: 03/10/24 11:27 NM [id number]) Posture Evaluation Position Standing Head/C-Spine Posture Forward Head L-Spine Posture Decreased Lordosis Pelvis Posture (R) Rotated Anterior,(L) Iliac Crest Superior Weight Distribution Weight Shifted Left Hip Posture (L) Externally Rotated,(R) Externally Rotated Knee Posture (L) Genu Valgus,(R) Genu Valgus Palpation Assessment Location lumbar spine Palpation Details Tightness of thoracolumbar paraspinals, QL Muscle guarding at low back Tenderness along PSIS (R>L), SIJ (R>L), lower lumbar spinous processes especially nrear L4-5-S1-2 R hip Palpation Details Tenderness along R groin, carlene-lateral hip anterior to greater trochanter Tenderness and tightness along piriformis B PT-OP-K Range of Motion Start: 03/10/24 08:05 Freq: Status: Active Protocol: Document 03/13/24 07:36 NM (Rec: 03/13/24 07:37 NM [id number]) Hip Goniometric Range of Motion Hip Right Flexion w/Knee Flexed 105 Internal Rotation 32 External Rotation 30 Comments 28 ER, pain w/ both IR > ER, flexion Left Flexion w/Knee Flexed 107 Internal Rotation 30 External Rotation 30 Comments pain in low back with flexion PT-OP-L Special Tests Start: 03/10/24 08:05 Freq: Status: Active Protocol: Document 03/10/24 09:00 NM (Rec: 03/10/24 09:48 NM [id number]) Special Tests Lumbar Spine Special Tests Traction Test Results + Comments slight symptom relief Straight Leg Raise Test Results - Mcfadden/quadrant Test Results + Comments local pain B Hip Special Tests [place] Resisted Hip Flexion Test Results + Log Roll Test Test Results + Scour Test Results + FADIR Test Results + JUAN A Test Results + PT-OP-M Strength Start: 03/10/24 08:05 Freq: Status: Active Protocol: Document 03/10/24 09:00 NM (Rec: 03/10/24 09:48 NM [id number]) Trunk Strength Trunk Manual Muscle Testing Flexion 3+ Fair+ Extension 3+ Fair+ Rotation Left 3+ Fair+ Rotation Right 3+ Fair+ Lateral Flexion Left 3+ Fair+ Lateral Flexion Right 3+ Fair+ Comments No pain with resisted testing Hip Strength Hip Manual Muscle Testing Right Flexion (L2) 3+ Fair+ Extension (S1) 4- Good- Abduction 4- Good- External Rotation 3 Fair Internal Rotation 3 Fair Comments hip and back pain with flexion , ER, IR Left Flexion (L2) 4- Good- Extension (S1) 4- Good- Abduction 4- Good- External Rotation 3+ Fair+ Internal Rotation 3+ Fair+ Comments back pain with ER/IR Knee Strength Knee Manual Muscle Testing Right Flexion (S2) 4- Good- Extension (L3) 4- Good- Comments hip pain with knee extension Left Flexion (S2) 4 Good Extension (L3) 4 Good PT-OP-Q Treatments Start: 03/10/24 08:05 Freq: Status: Active Protocol: Document 03/17/24 08:10 AB (Rec: 03/17/24 09:12 AB [id number]) Therapeutic Exercises Supine Exercises piriformis Supine Exercise Name from hooklying HEP Side bilateral Reps/Minutes 60 seconds X 2 each LE Comments Verbal cues hip flexor stretch Supine Exercise Name madie stretch- HEP Side bilateral Reps/Minutes 60 X2 right X 1 left Comments post manual Sidelying Exercises side plank Sidelying Exercise Name HEP Side bilateral Reps/Minutes 30 second each side Comments verbal cues hip IR Sidelying Exercise Name reverse clamshell Side right Resistance AROM without band this session Equipment Used pillow between knees Reps/Minutes X10 Comments VC for breathing from diaphgragm Sitting Exercises sit to stand Sitting Exercise Name HEP X 5 every other day Side bilateral Reps/Minutes X7 Comments Pt ed self tactile cues for hip hinge, monitored for pain seated hip abd with band Sitting Exercise Name HEP Side bilateral Resistance level 3 latex free band Reps/Minutes X1 for one minute Comments verbal cues marching on ball Sitting Exercise Name seated on ball HEP Reps/Minutes X12 Comments vc to lift LE in pain free range and to avoid moving the ball Other Exercises quadruped Other Exercise Name 1. quad rock backs (HEP), Reps/Minutes X10 Comments Verbal cues for breathing from diaphgragm Manual Therapy Treatment Consent Patient gave verbal consent for manual Yes treatment Soft Tissue Mobilization R hip Body Location hip flexors, Mobilization Type Cross-Friction,Rolling, Strumming Intensity/Depth Moderate Body Position Sidelying Comments prior to stretches lumbar spine Body Location glutes/ piriformis only right this session Mobilization Type Cross-Friction,Rolling Intensity/Depth Moderate Body Position Sidelying Comments Prior to stretches PT-OP-T Assessment and Plan Start: 03/10/24 08:05 Freq: Status: Active Protocol: Document 03/17/24 08:10 AB (Rec: 03/17/24 09:12 AB [id number]) Physical Therapy Assessment Goals 4 Impairment pain with sitting, standing, lifting Short Term Goal (STG) Pt will be educated on correct body mechanics during lifting and ergonomics in sitting/ standing in order to improve pain symptom management STG Duration 6 week Cell 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 Long-Term Goal (LTG) Pt will report compliance with HEP at least 3x/wk in order to maximize progression with PT and transition to maintenance program after discharge from PT LTG Duration 8 weeks 2 Impairment R hip strength impaired Impairment . Long-Term Goal (LTG) Pt will increase R hip strength globally to 4/5 except for hip flexion at least 4-/5 in order to demonstrate improved strength for stairs, gait, transfers 1 Impairment trunk strength 3+/5 Impairment . Short Term Goal (STG) Pt will be educated on core bracing strategies and demonstrate core bracing in at least 5/10 reps in order to demonstrate improved proximal stability during ADLs, standing/gait STG Duration 4 weeks Long-Term Goal (LTG) Pt will improve global trunk strength to at least 4/10 without increase in low back pain symptoms in order to demonstrate improved proximal stability during ADLs, standing/gait, and when interacting with her son LTG Duration 8 weeks Assessment Summary Assessment Patient rates pain 5/10 nearly end of session pre glut med activation/ seated hip abd with band and 3/10 end of session post seated hip abd with band one minute. Good return demonstration for all exercises added to HEP. Physical Therapy Plan Frequency and Duration Frequency of Treatment 2x/Week Duration of treatment (weeks) 8 Plan of Care Start Date 03/10/24 Plan of Care End Date 05/09/24 Next Visit Focus/Plan Next Note Type Treatment Note Next Visit Plan latex and tape allergy Review HEP/assess neeru to seated marching on ball for core and AROM hip flexion provided. passive hip mobility . Initiate strengthening: clam , seated hip abduction in <90 deg hip flexion, TrA and core bracing into flexion, flexion biased core, segmental bridging, jennifer quadruped hip/ core. Trial in future- wall squats, Possibly condense clamshell and sideplank into clamshell performed in sideplank.
--- NOTE | 2024-04-08 10:52 | PT.OTN ---
Current Diagnoses Pain in right hip (04/08/24) Stiffness of right hip, not elsewhere classified (04/08/24) Stiffness of other specified joint, not elsewhere classified (04/08/24) Low back pain, unspecified (04/08/24) Other lack of coordination (04/08/24) Weakness (04/08/24) Other sprain of right hip, initial encounter (04/08/24) Physical Therapy Treatment Note PT-OP-A Visit Information Start: 03/10/24 08:05 Freq: Status: Active Protocol: Document 04/08/24 08:18 NM (Rec: 04/08/24 09:02 NM [id number]) Out-Patient Physical Therapy Visit Information Visit Information Visit Type Progress Note Visit Note 22 visits total latex and tape allergy Visit Start Time 08:18 Visit Stop Time 08:58 Visit Number 09/09 PT-OP-B Current Condition Start: 03/10/24 08:05 Freq: Status: Active Protocol: Document 03/10/24 09:00 NM (Rec: 03/10/24 09:48 NM [id number]) Current Condition History of Current Condition Onset Date R hip 08/2023, back-chronic Current Complaints pain, weakness, limited standing/gait/stair tolerance History of Current Condition Pt presents with pain in R hip and back. Pt states that her R hip was injured on 09/06/23, she fell on her concrete stairs while carrying both groceries and son; states contorted herself to avoid hurting son. She has had imaging. She has been referred to an orthopedic surgeon but has to have 6 weeks of PT first. She had an injection in November 08 2023. States took a while to work but then states worked really well; states that wore off but not as bad as it was. Pt reports impairments in sitting time ( am worse, a few minutes), wants to lie supine initially. Pt also presents with back pain, beginning in 2007. She reports that her pain has been worse since her fall; states has always had low back issues. She reports no specific injuries; states more active with snowboarding/ skateboard. States back also worse since , ~3 years ago. Has stairs in home (up to house, basement). No imaging for back at this time. Reports sharp, shooting samurai sword when has radicular symptoms. 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 MRI of R hip: tear of anterosuperior labrum and posterior labrum, findings suggestive of mild degenerative changes of L sacroiliac joint Treatment Goals Patient/Caregiver Goals reduce pain PT-OP-C Subjective Start: 03/10/24 08:05 Freq: Status: Active Protocol: Document 04/08/24 08:18 NM (Rec: 04/08/24 09:02 NM [id number]) OP-PT Subjective Patient Comments Patient Comments Pt reports hip is improving but back is the same. She reports less pain in her hip overall and less clicking. She has been cleaning several houses, which has made her hip hurt, in addition to dancing x20 min the next morning. She will be seeing Dr. Gee on ; will be possibly getting a 2nd cortizone shot vs surgery vs continue with PT. Pt reports 4/10 hip pain, back 5/ 10 PT-OP-F Manual Assessment Start: 03/10/24 08:05 Freq: Status: Active Protocol: Document 03/10/24 09:00 NM (Rec: 03/10/24 11:27 NM [id number]) Manual Assessments Soft Tissue Assessment Soft Tissue Mobility Assessment Tightness of R piriformis and lumbar paraspinals. Increased tightness of R hip flexors Joint Mobility Assessment Joint Mobility Assessment Palpable and audible clicking and catching of R hip with end range hip flexion/rotation. Hypermobility of lumbar spine with PA springing, hypomobility of SIJ B PT-OP-G Mobility & Gait Start: 03/10/24 08:05 Freq: Status: Active Protocol: Document 03/10/24 09:00 NM (Rec: 03/10/24 11:27 NM [id number]) OP Gait Assessment Gait Gait Assistance Required: Independent Distance (Feet) 150 Gait Deviations General Gait Pattern Antalgic,Flexed Trunk Comments Gait Comments Decreased R stance time, slight forward trunk lean with R stance. Stiffer R ankle by observation PT-OP-J Posture/Palpation/Skin Start: 03/10/24 08:05 Freq: Status: Active Protocol: Document 03/10/24 09:00 NM (Rec: 03/10/24 11:27 NM [id number]) Posture Evaluation Position Standing Head/C-Spine Posture Forward Head L-Spine Posture Decreased Lordosis Pelvis Posture (R) Rotated Anterior,(L) Iliac Crest Superior Weight Distribution Weight Shifted Left Hip Posture (L) Externally Rotated,(R) Externally Rotated Knee Posture (L) Genu Valgus,(R) Genu Valgus Palpation Assessment Location lumbar spine Palpation Details Tightness of thoracolumbar paraspinals, QL Muscle guarding at low back Tenderness along PSIS (R>L), SIJ (R>L), lower lumbar spinous processes especially nrear L4-5-S1-2 R hip Palpation Details Tenderness along R groin, carlene-lateral hip anterior to greater trochanter Tenderness and tightness along piriformis B PT-OP-K Range of Motion Start: 03/10/24 08:05 Freq: Status: Active Protocol: Document 04/08/24 08:18 NM (Rec: 04/08/24 09:02 NM [id number]) Lumbar Spine Range of Motion Lumbar Spine Active Percentage Flexion 60 Extension 10 Rotation Left 75 Rotation Right 50 Lateral Flexion Left 25 Lateral Flexion Right 50 Comments pain w/ flexion, ext ++, lateral flexion (R) and rot (R ) 04/08/24: 75% flex, 75% B lateral flexion (L worse) Hip Goniometric Range of Motion Hip Right Flexion w/Knee Flexed 105 Internal Rotation 32 External Rotation 30 Comments 28 ER, pain w/ both IR > ER, flexion 04/08/24: see above Left Flexion w/Knee Flexed 107 Internal Rotation 30 External Rotation 30 Comments pain in low back with flexion PT-OP-L Special Tests Start: 03/10/24 08:05 Freq: Status: Active Protocol: Document 03/10/24 09:00 NM (Rec: 03/10/24 09:48 NM [id number]) Special Tests Lumbar Spine Special Tests Traction Test Results + Comments slight symptom relief Straight Leg Raise Test Results - Mcfadden/quadrant Test Results + Comments local pain B Hip Special Tests Stinchfield Resisted Hip Flexion Test Results + Log Roll Test Test Results + Scour Test Results + FADIR Test Results + JUAN A Test Results + PT-OP-M Strength Start: 03/10/24 08:05 Freq: Status: Active Protocol: Document 04/08/24 08:18 NM (Rec: 04/08/24 09:02 NM [id number]) Trunk Strength Trunk Manual Muscle Testing Flexion 4- Good- Extension 4- Good- Rotation Left 4- Good- Rotation Right 4- Good- Lateral Flexion Left 4- Good- Lateral Flexion Right 4- Good- Comments No pain with resisted testing PT-OP-Q Treatments Start: 03/10/24 08:05 Freq: Status: Active Protocol: Document 04/08/24 08:18 NM (Rec: 04/08/24 09:02 NM [id number]) Therapeutic Exercises Supine Exercises TrA activation Supine Exercise Name march Side bilateral Reps/Minutes 10 Comments good core brace; small reps to avoid agg hip Standing Exercises wall squat Side bilateral Equipment Used 65 cm ball Reps/Minutes 10 ea Comments no pain; reports in quads- good form Other Exercises quadruped Other Exercise Name 1. hip ext, 2. hip abd, 3. bird dog, 4. hip IR/ER rockbacks Side bilateral Resistance AROM > level 2 latex free band Reps/Minutes 1. 10, 10 (alt), 2. 2x10, 3. 10 alt, 4. 5 ea Comments cued core brace Therapeutic Activity Therapeutic Activity lifting mechanics Reps/Minutes 10 min Comments 1. hip hinge at wall w/ self tactile cues 2. hip hinge and squat picking up basket and ~son (not present) 3. STS 10 from elevated plinth Cued core bracing and breath work. No increase in pain Manual Therapy Treatment Consent Patient gave verbal consent for manual Yes treatment Soft Tissue Mobilization R hip Body Location hip flexors Mobilization Type Cross-Friction,Rolling, Strumming Intensity/Depth Moderate Body Position Sidelying lumbar spine Body Location glutes/ piriformis only right this session Mobilization Type Cross-Friction,Rolling Intensity/Depth Moderate Body Position Sidelying PT-OP-T Assessment and Plan Start: 03/10/24 08:05 Freq: Status: Active Protocol: Document 04/08/24 08:18 NM (Rec: 04/08/24 09:02 NM [id number]) Physical Therapy Assessment Goals 4 Impairment pain with sitting, standing, lifting Short Term Goal (STG) Pt will be educated on correct body mechanics during lifting and ergonomics in sitting/ standing in order to improve pain symptom management 04/08/24: pt educated on mechanics STG Duration 6 week Accounting Manager Goal (LTG) Pt will report that she is able to sit >1 hour without increase in R hip pain in order to be able to perform work-related tasks and play with her son LTG Duration 8 weeks 3 Impairment HEP compliance- not performing an exercise program Impairment . Accounting Manager Goal (LTG) Pt will report compliance with HEP at least 3x/wk in order to maximize progression with PT and transition to maintenance program after discharge from PT LTG Duration 8 weeks 2 Impairment R hip strength impaired Impairment . 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 Goal (LTG) Pt will increase R hip strength globally to 4/5 except for hip flexion at least 4-/5 in order to demonstrate improved strength for stairs, gait, transfers 1 Impairment trunk strength 3+/5 Impairment . Short Term Goal (STG) Pt will be educated on core bracing strategies and demonstrate core bracing in at least 5/10 reps in order to demonstrate improved proximal stability during ADLs, standing/gait 04/08/24: able to perform in quadruped and supine; progressing to standing; at least 5/10 reps for all STG Duration 4 weeks MET 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 Goal (LTG) Pt will improve global trunk strength to at least 4/10 without increase in low back pain symptoms in order to demonstrate improved proximal stability during ADLs, standing/gait, and when interacting with her son LTG Duration 8 weeks Progress Towards Goals Progress Towards Goals Progressing Toward Goals Assessment Summary Assessment Pt tolerated session well. Initiated quadruped hip mobility and core strengthening. Emphasis on posterior chain strengthening for overall stability. Good feedback for wall squats, feels appropriate muscle activation. Initiated lifting mechanics training today. Cued moderately for form; pt has good carryover from AROM to lifting with objects. Cued primarily for core bracing and neutral spine; educated on use for ADLs. Pt reports 3/10 pain in back and hip at end of session, an improvement. Physical Therapy Plan Frequency and Duration Frequency of Treatment 2x/Week Duration of treatment (weeks) 8 Plan of Care Start Date 03/10/24 Plan of Care End Date 05/09/24 Therapeutic Interventions Therapeutic Interventions Balance Training,Gait Training ,Home Exercise Program,Joint Mobilizations,Manual Therapy, Neuromuscular Re-education, Orthotic/Prosthetic Management ,Patient/Caregiver Education, Self-Care/Home Management, Sensory Integration,Soft Tissue Mobilization, Therapeutic Activities, Therapeutic Exercises Modalities Cold Pack/Ice Massage,Electric Stimulation,Hot Packs, Ultrasound,Vasopneumatic Devices Other Therapeutic Interventions No taping, no mechanical traction due to retrolistheis Trial MET and pelvic realignment exercises Next Visit Focus/Plan Next Note Type Treatment Note Next Visit Plan latex and tape allergy Core on [place]istan[place] ball. cont with hip strength with limited hip flex ROM. Review HEP/assess neeru to seated marching on ball for core and AROM hip flexion provided. passive hip mobility . Initiate strengthening: clam , seated hip abduction in <90 deg hip flexion, TrA and core bracing into flexion, flexion biased core, segmental bridging, jennifer quadruped hip/ core. Trial in future- wall squats, Possibly condense clamshell and sideplank into clamshell performed in sideplank.
--- NOTE | 2024-04-16 09:52 | PT.OTN ---
Current Diagnoses Pain in right hip (04/16/24) Stiffness of right hip, not elsewhere classified (04/16/24) Stiffness of other specified joint, not elsewhere classified (04/16/24) Low back pain, unspecified (04/16/24) Other lack of coordination (04/16/24) Weakness (04/16/24) Other sprain of right hip, initial encounter (04/16/24) Physical Therapy Treatment Note PT-OP-A Visit Information Start: 03/10/24 08:05 Freq: Status: Active Protocol: Document 04/16/24 09:03 NM (Rec: 04/16/24 09:52 NM [id number]) Out-Patient Physical Therapy Visit Information Visit Information Visit Type Treatment Note Visit Start Time 09:04 Visit Stop Time 09:45 Visit Number 10/09 Evaluation Information Evaluation Date 03/10/24 Precautions Precautions Hx R labral tear Latex and tape allergy PT-OP-B Current Condition Start: 03/10/24 08:05 Freq: Status: Active Protocol: Document 03/10/24 09:00 NM (Rec: 03/10/24 09:48 NM [id number]) Current Condition History of Current Condition Onset Date R hip 08/2023, back-chronic Current Complaints pain, weakness, limited standing/gait/stair tolerance History of Current Condition Pt presents with pain in R hip and back. Pt states that her R hip was injured on 09/06/23, she fell on her concrete stairs while carrying both groceries and son; states contorted herself to avoid hurting son. She has had imaging. She has been referred to an orthopedic surgeon but has to have 6 weeks of PT first. She had an injection in November 08 2023. States took a while to work but then states worked really well; states that wore off but not as bad as it was. Pt reports impairments in sitting time ( am worse, a few minutes), wants to lie supine initially. Pt also presents with back pain, beginning in 2007. She reports that her pain has been worse since her fall; states has always had low back issues. She reports no specific injuries; states more active with snowboarding/ skateboard. States back also worse since , ~3 years ago. Has stairs in home (up to house, basement). No imaging for back at this time. Reports sharp, shooting samurai sword when has radicular symptoms. 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 MRI of R hip: tear of anterosuperior labrum and posterior labrum, findings suggestive of mild degenerative changes of L sacroiliac joint Treatment Goals Patient/Caregiver Goals reduce pain PT-OP-C Subjective Start: 03/10/24 08:05 Freq: Status: Active Protocol: Document 04/16/24 09:03 NM (Rec: 04/16/24 09:52 NM [id number]) OP-PT Subjective Patient Comments Patient Comments Pt reports that her back is really bothering her, states 6-7/10 pain to start. Had to order a memory foam topper to help with her pain at night. Unable to sleep on back due to pain; states has been sleeping on the side. Did not really do anything yesterday . She states that overall, she has been doing pretty well overall. States pain is overall. She saw Dr. Gee yesterday; she is not at the [facility] month [facility] since injection so unable to progress with more invasive treatment at this time. She will not be doing another steroid injection. She is wanting to go to the pool PT-OP-F Manual Assessment Start: 03/10/24 08:05 Freq: Status: Active Protocol: Document 03/10/24 09:00 NM (Rec: 03/10/24 11:27 NM [id number]) Manual Assessments Soft Tissue Assessment Soft Tissue Mobility Assessment Tightness of R piriformis and lumbar paraspinals. Increased tightness of R hip flexors Joint Mobility Assessment Joint Mobility Assessment Palpable and audible clicking and catching of R hip with end range hip flexion/rotation. Hypermobility of lumbar spine with PA springing, hypomobility of SIJ B PT-OP-G Mobility & Gait Start: 03/10/24 08:05 Freq: Status: Active Protocol: Document 03/10/24 09:00 NM (Rec: 03/10/24 11:27 NM [id number]) OP Gait Assessment Gait Gait Assistance Required: Independent Distance (Feet) 150 Gait Deviations General Gait Pattern Antalgic,Flexed Trunk Comments Gait Comments Decreased R stance time, slight forward trunk lean with R stance. Stiffer R ankle by observation PT-OP-J Posture/Palpation/Skin Start: 03/10/24 08:05 Freq: Status: Active Protocol: Document 03/10/24 09:00 NM (Rec: 03/10/24 11:27 NM [id number]) Posture Evaluation Position Standing Head/C-Spine Posture Forward Head L-Spine Posture Decreased Lordosis Pelvis Posture (R) Rotated Anterior,(L) Iliac Crest Superior Weight Distribution Weight Shifted Left Hip Posture (L) Externally Rotated,(R) Externally Rotated Knee Posture (L) Genu Valgus,(R) Genu Valgus Palpation Assessment Location lumbar spine Palpation Details Tightness of thoracolumbar paraspinals, QL Muscle guarding at low back Tenderness along PSIS (R>L), SIJ (R>L), lower lumbar spinous processes especially nrear L4-5-S1-2 R hip Palpation Details Tenderness along R groin, carlene-lateral hip anterior to greater trochanter Tenderness and tightness along piriformis B PT-OP-K Range of Motion Start: 03/10/24 08:05 Freq: Status: Active Protocol: Document 04/08/24 08:18 NM (Rec: 04/08/24 09:02 NM [id number]) Lumbar Spine Range of Motion Lumbar Spine Active Percentage Flexion 60 Extension 10 Rotation Left 75 Rotation Right 50 Lateral Flexion Left 25 Lateral Flexion Right 50 Comments pain w/ flexion, ext ++, lateral flexion (R) and rot (R ) 04/08/24: 75% flex, 75% B lateral flexion (L worse) Hip Goniometric Range of Motion Hip Right Flexion w/Knee Flexed 105 Internal Rotation 32 External Rotation 30 Comments 28 ER, pain w/ both IR > ER, flexion 04/08/24: see above Left Flexion w/Knee Flexed 107 Internal Rotation 30 External Rotation 30 Comments pain in low back with flexion PT-OP-L Special Tests Start: 03/10/24 08:05 Freq: Status: Active Protocol: Document 03/10/24 09:00 NM (Rec: 03/10/24 09:48 NM [id number]) Special Tests Lumbar Spine Special Tests Traction Test Results + Comments slight symptom relief Straight Leg Raise Test Results - Mcfadden/quadrant Test Results + Comments local pain B Hip Special Tests Stinchfield Resisted Hip Flexion Test Results + Log Roll Test Test Results + Scour Test Results + FADIR Test Results + JUAN A Test Results + PT-OP-M Strength Start: 03/10/24 08:05 Freq: Status: Active Protocol: Document 04/08/24 08:18 NM (Rec: 04/08/24 09:02 NM [id number]) Trunk Strength Trunk Manual Muscle Testing Flexion 4- Good- Extension 4- Good- Rotation Left 4- Good- Rotation Right 4- Good- Lateral Flexion Left 4- Good- Lateral Flexion Right 4- Good- Comments No pain with resisted testing PT-OP-Q Treatments Start: 03/10/24 08:05 Freq: Status: Active Protocol: Document 04/16/24 09:03 NM (Rec: 04/16/24 09:52 NM [id number]) Therapeutic Exercises Sidelying Exercises lateral flexion Sidelying Exercise Name with UE crunch only Side bilateral Equipment Used mat on floor, 65 cm ball Reps/Minutes 10 ea Comments sharp hip pain w/ leg crunch too so d/c Sitting Exercises [place] ball Sitting Exercise Name 1. hip circles, 2. pelvic tilts midrange, 3. lateral tilts, 4. Side bilateral Equipment Used 65 cm ball Reps/Minutes 10 ea Comments pain free marching on ball Sitting Exercise Name seated on ball w/ slight hip abd Reps/Minutes 10 Comments pain free; cued for abd brace Standing Exercises pallof Standing Exercise Name antirotation press- HEP Side bilateral Resistance level 1 band Reps/Minutes 2x10 Comments pain free; cued breathwork and bracing Manual Therapy Treatment Consent Patient gave verbal consent for manual Yes treatment Soft Tissue Mobilization R hip Body Location hip flexors, glutes Mobilization Type Cross-Friction,Rolling, Strumming Intensity/Depth Moderate Body Position Sidelying lumbar spine Body Location glutes/ piriformis B, paraspinals, QL Mobilization Type Cross-Friction,Rolling Intensity/Depth Moderate Body Position Sidelying Comments monitored for pain PT-OP-T Assessment and Plan Start: 03/10/24 08:05 Freq: Status: Active Protocol: Document 04/16/24 09:03 NM (Rec: 04/16/24 09:52 NM [id number]) Physical Therapy Assessment Goals 4 Impairment pain with sitting, standing, lifting Short Term Goal (STG) Pt will be educated on correct body mechanics during lifting and ergonomics in sitting/ standing in order to improve pain symptom management 04/08/24: pt educated on mechanics STG Duration 6 week Customer Assistant Goal (LTG) Pt will report that she is able to sit >1 hour without increase in R hip pain in order to be able to perform work-related tasks and play with her son LTG Duration 8 weeks 3 Impairment HEP compliance- not performing an exercise program Impairment . Customer Assistant Goal (LTG) Pt will report compliance with HEP at least 3x/wk in order to maximize progression with PT and transition to maintenance program after discharge from PT LTG Duration 8 weeks 2 Impairment R hip strength impaired Impairment . [facility]entiary Goal (LTG) Pt will increase R hip strength globally to 4/5 except for hip flexion at least 4-/5 in order to demonstrate improved strength for stairs, gait, transfers 1 Impairment trunk strength 3+/5 Impairment . Short Term Goal (STG) Pt will be educated on core bracing strategies and demonstrate core bracing in at least 5/10 reps in order to demonstrate improved proximal stability during ADLs, standing/gait 04/08/24: able to perform in quadruped and supine; progressing to standing; at least 5/10 reps for all STG Duration 4 weeks MET [facility] Goal (LTG) Pt will improve global trunk strength to at least 4/10 without increase in low back pain symptoms in order to demonstrate improved proximal stability during ADLs, standing/gait, and when interacting with her son LTG Duration 8 weeks Assessment Summary Assessment Pt reports much less pain in back at end of session but does not specify a number. Continues to respond well to core activation and gentle strengthening on [place] ball. Initiated lat strengthening and anti-rotation press for trunk stability and postural control. Pt with good feedback to sidelying isotonics and stretching on [place] ball. Continues to respond well to manual therapy, especially caudal distraction at iliac crest. L sided more restricted today than R side. PT recommended that pt consider massage as part of pain management routine. Pt would continue to benefit from skilled PT for progressive mobility and strengthening to improve symptom management and activity tolerance during ADLs and lifting. Physical Therapy Plan Frequency and Duration Frequency of Treatment 2x/Week Duration of treatment (weeks) 8 Plan of Care Start Date 03/10/24 Plan of Care End Date 05/09/24 Therapeutic Interventions Therapeutic Interventions Balance Training,Gait Training ,Home Exercise Program,Joint Mobilizations,Manual Therapy, Neuromuscular Re-education, Orthotic/Prosthetic Management ,Patient/Caregiver Education, Self-Care/Home Management, Sensory Integration,Soft Tissue Mobilization, Therapeutic Activities, Therapeutic Exercises Modalities Cold Pack/Ice Massage,Electric Stimulation,Hot Packs, Ultrasound,Vasopneumatic Devices Other Therapeutic Interventions No taping, no mechanical traction due to retrolistheis Trial MET and pelvic realignment exercises Next Visit Focus/Plan Next Note Type Treatment Note Next Visit Plan latex and tape allergy Core on [place] ball, progress to standing core. cont with hip strength with limited hip flex ROM- trial prone hip ext over table vs wall squat, HSC, LAQ, wall squat, ball core in supine. Review HEP/assess neeru to seated marching on ball for core and AROM hip flexion provided. passive hip mobility . Cont with back and hip strengthening: resisted stepping vs standing hip abd/ ext, seated hip abduction in < 90 deg hip flexion, TrA and core bracing into flexion, flexion biased core
--- NOTE | 2024-04-24 10:39 | PT.OTN ---
Current Diagnoses Pain in right hip (04/24/24) Stiffness of right hip, not elsewhere classified (04/24/24) Stiffness of other specified joint, not elsewhere classified (04/24/24) Low back pain, unspecified (04/24/24) Other lack of coordination (04/24/24) Weakness (04/24/24) Other sprain of right hip, initial encounter (04/24/24) Physical Therapy Treatment Note PT-OP-A Visit Information Start: 03/10/24 08:05 Freq: Status: Active Protocol: Document 04/24/24 09:48 NM (Rec: 04/24/24 10:39 NM [id number]) Out-Patient Physical Therapy Visit Information Visit Information Visit Type Treatment Note Visit Note 22 visits total latex and tape allergy Visit Start Time 09:49 Visit Stop Time 10:30 Visit Number 11/09 Evaluation Information Evaluation Date 03/10/24 Precautions Precautions Hx R labral tear Latex and tape allergy PT-OP-B Current Condition Start: 03/10/24 08:05 Freq: Status: Active Protocol: Document 03/10/24 09:00 NM (Rec: 03/10/24 09:48 NM [id number]) Current Condition History of Current Condition Onset Date R hip 08/2023, back-chronic Current Complaints pain, weakness, limited standing/gait/stair tolerance History of Current Condition Pt presents with pain in R hip and back. Pt states that her R hip was injured on 09/06/23, she fell on her concrete stairs while carrying both groceries and son; states contorted herself to avoid hurting son. She has had imaging. She has been referred to an orthopedic surgeon but has to have 6 weeks of PT first. She had an injection in November 08 2023. States took a while to work but then states worked really well; states that wore off but not as bad as it was. Pt reports impairments in sitting time ( am worse, a few minutes), wants to lie supine initially. Pt also presents with back pain, beginning in 2007. She reports that her pain has been worse since her fall; states has always had low back issues. She reports no specific injuries; states more active with snowboarding/ skateboard. States back also worse since , ~3 years ago. Has stairs in home (up to house, basement). No imaging for back at this time. Reports sharp, shooting jimena swenriqueta when has radicular symptoms. 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 MRI of R hip: tear of anterosuperior labrum and posterior labrum, findings suggestive of mild degenerative changes of L sacroiliac joint Treatment Goals Patient/Caregiver Goals reduce pain PT-OP-C Subjective Start: 03/10/24 08:05 Freq: Status: Active Protocol: Document 04/24/24 09:48 NM (Rec: 04/24/24 10:39 NM [id number]) OP-PT Subjective Patient Comments Patient Comments Pt reports back and hip doing better. States mattress topper helping. Reports 4/10 pain in both. Pt reports HEP going well. No changes PT-OP-F Manual Assessment Start: 03/10/24 08:05 Freq: Status: Active Protocol: Document 03/10/24 09:00 NM (Rec: 03/10/24 11:27 NM [id number]) Manual Assessments Soft Tissue Assessment Soft Tissue Mobility Assessment Tightness of R piriformis and lumbar paraspinals. Increased tightness of R hip flexors Joint Mobility Assessment Joint Mobility Assessment Palpable and audible clicking and catching of R hip with end range hip flexion/rotation. Hypermobility of lumbar spine with PA springing, hypomobility of SIJ B PT-OP-G Mobility & Gait Start: 03/10/24 08:05 Freq: Status: Active Protocol: Document 03/10/24 09:00 NM (Rec: 03/10/24 11:27 NM [id number]) OP Gait Assessment Gait Gait Assistance Required: Independent Distance (Feet) 150 Gait Deviations General Gait Pattern Antalgic,Flexed Trunk Comments Gait Comments Decreased R stance time, slight forward trunk lean with R stance. Stiffer R ankle by observation PT-OP-J Posture/Palpation/Skin Start: 03/10/24 08:05 Freq: Status: Active Protocol: Document 03/10/24 09:00 NM (Rec: 03/10/24 11:27 NM [id number]) Posture Evaluation Position Standing Head/C-Spine Posture Forward Head L-Spine Posture Decreased Lordosis Pelvis Posture (R) Rotated Anterior,(L) Iliac Crest Superior Weight Distribution Weight Shifted Left Hip Posture (L) Externally Rotated,(R) Externally Rotated Knee Posture (L) Genu Valgus,(R) Genu Valgus Palpation Assessment Location lumbar spine Palpation Details Tightness of thoracolumbar paraspinals, QL Muscle guarding at low back Tenderness along PSIS (R>L), SIJ (R>L), lower lumbar spinous processes especially nrear L4-5-S1-2 R hip Palpation Details Tenderness along R groin, carlene-lateral hip anterior to greater trochanter Tenderness and tightness along piriformis B PT-OP-K Range of Motion Start: 03/10/24 08:05 Freq: Status: Active Protocol: Document 04/08/24 08:18 NM (Rec: 04/08/24 09:02 NM [id number]) Lumbar Spine Range of Motion Lumbar Spine Active Percentage Flexion 60 Extension 10 Rotation Left 75 Rotation Right 50 Lateral Flexion Left 25 Lateral Flexion Right 50 Comments pain w/ flexion, ext ++, lateral flexion (R) and rot (R ) 04/08/24: 75% flex, 75% B lateral flexion (L worse) Hip Goniometric Range of Motion Hip Right Flexion w/Knee Flexed 105 Internal Rotation 32 External Rotation 30 Comments 28 ER, pain w/ both IR > ER, flexion 04/08/24: see above Left Flexion w/Knee Flexed 107 Internal Rotation 30 External Rotation 30 Comments pain in low back with flexion PT-OP-L Special Tests Start: 03/10/24 08:05 Freq: Status: Active Protocol: Document 03/10/24 09:00 NM (Rec: 03/10/24 09:48 NM [id number]) Special Tests Lumbar Spine Special Tests Traction Test Results + Comments slight symptom relief Straight Leg Raise Test Results - Mcfadden/quadrant Test Results + Comments local pain B Hip Special Tests Stinchfield Resisted Hip Flexion Test Results + Log Roll Test Test Results + Scour Test Results + FADIR Test Results + JUAN A Test Results + PT-OP-M Strength Start: 03/10/24 08:05 Freq: Status: Active Protocol: Document 04/08/24 08:18 NM (Rec: 04/08/24 09:02 NM [id number]) Trunk Strength Trunk Manual Muscle Testing Flexion 4- Good- Extension 4- Good- Rotation Left 4- Good- Rotation Right 4- Good- Lateral Flexion Left 4- Good- Lateral Flexion Right 4- Good- Comments No pain with resisted testing PT-OP-Q Treatments Start: 03/10/24 08:05 Freq: Status: Active Protocol: Document 04/24/24 09:48 NM (Rec: 04/24/24 10:39 NM [id number]) Therapeutic Exercises Sitting Exercises montenegrin ball Sitting Exercise Name 1. cat camel, 2. hip [place] croix, 3 . lateral tilts, 4. lat pull down,5.march/abd Side bilateral Resistance 6. hip flexor stretch; lvl 3 band Equipment Used 65 cm Reps/Minutes 1. 15, 2. 10 CW, 10 CCW, 3. 15 , 4. 20, 5. 15, 6. 30 Comments no pain; dec stretch time to avoid hip pain Standing Exercises carries Standing Exercise Name 1. suitcase, 2. jerome, 3. asymmetrical Side bilateral Resistance 7# db > 10# db Equipment Used towel roll on head for posture Reps/Minutes 50 ft ea hand resisted stepping Standing Exercise Name 1. lateral HEP, 2. fwd/retro Side bilateral Resistance lvl 2 latex free band at ankles Reps/Minutes 1. 2x25 ft ea direction AROM then w/ band, 2. 2x25 ft Comments cued minimize trunk lean; no hip pain pallof Standing Exercise Name antirotation press w/ squat- HEP review Side bilateral Resistance level 2 band Reps/Minutes 2x10 Comments pain free; fewer cues breathwork and bracing; cued more hinge Manual Therapy Treatment Consent Patient gave verbal consent for manual Yes treatment Soft Tissue Mobilization R hip Body Location hip flexors, glutes Mobilization Type Cross-Friction,Rolling, Strumming Intensity/Depth Moderate Body Position Sidelying lumbar spine Body Location glutes/ piriformis B, paraspinals, QL Mobilization Type Cross-Friction,Rolling Intensity/Depth Moderate Body Position Sidelying Comments monitored for pain. performed with sidelying lateral flexion stretching and iliac crest depression Self-Care/Home Management Treatment Education Other Education Issued level 2 orange and level 4 dark blue bands for HEP progressions PT-OP-T Assessment and Plan Start: 03/10/24 08:05 Freq: Status: Active Protocol: Document 04/24/24 09:48 NM (Rec: 04/24/24 10:39 NM [id number]) Physical Therapy Assessment Goals 4 Impairment pain with sitting, standing, lifting Short Term Goal (STG) Pt will be educated on correct body mechanics during lifting and ergonomics in sitting/ standing in order to improve pain symptom management 04/08/24: pt educated on mechanics STG Duration 6 week Debone Processing Supervisor Goal (LTG) Pt will report that she is able to sit >1 hour without increase in R hip pain in order to be able to perform work-related tasks and play with her son 04/24/24: pt can sit >1 hour before R hip pain occurs LTG Duration 8 weeks MET 3 Impairment HEP compliance- not performing an exercise program Impairment . De[employer] Processing Supervisor Goal (LTG) Pt will report compliance with HEP at least 3x/wk in order to maximize progression with PT and transition to maintenance program after discharge from PT LTG Duration 8 weeks 2 Impairment R hip strength impaired Impairment . Residential Goal (LTG) Pt will increase R hip strength globally to 4/5 except for hip flexion at least 4-/5 in order to demonstrate improved strength for stairs, gait, transfers 1 Impairment trunk strength 3+/5 Impairment . Short Term Goal (STG) Pt will be educated on core bracing strategies and demonstrate core bracing in at least 5/10 reps in order to demonstrate improved proximal stability during ADLs, standing/gait 04/08/24: able to perform in quadruped and supine; progressing to standing; at least 5/10 reps for all STG Duration 4 weeks MET Residential Goal (LTG) Pt will improve global trunk strength to at least 4/10 without increase in low back pain symptoms in order to demonstrate improved proximal stability during ADLs, standing/gait, and when interacting with her son LTG Duration 8 weeks Assessment Summary Assessment Pt reports no increase in L hip pain with exercises during session. Progressed seated and standing core, minimal cues needed for correct execution. Pt continues to respond well to exercises on montenegrin ball. Able to progress to standing resisted hip strengthening. Needs cueing to limit trunk compensations. Good feedback to carries with 10#, able to maintain tall posture and functional core bracing. Met sitting tolerance goal today; still limited with standing/lifting tolerance goal for work related tasks. Would benefit from further hip hinge training. PT and pt discussed pt progress; pt planning to d/ c at end of plan of care vs extending plan to save insurance visits. Pt would continue to benefit from skilled PT for progressive hip and core strengthening in order to improve symptom management and ADL tolerance. Physical Therapy Plan Frequency and Duration Frequency of Treatment 2x/Week Duration of treatment (weeks) 8 Plan of Care Start Date 03/10/24 Plan of Care End Date 05/09/24 Therapeutic Interventions Therapeutic Interventions Balance Training,Gait Training ,Home Exercise Program,Joint Mobilizations,Manual Therapy, Neuromuscular Re-education, Orthotic/Prosthetic Management ,Patient/Caregiver Education, Self-Care/Home Management, Sensory Integration,Soft Tissue Mobilization, Therapeutic Activities, Therapeutic Exercises Modalities Cold Pack/Ice Massage,Electric Stimulation,Hot Packs, Ultrasound,Vasopneumatic Devices Other Therapeutic Interventions No taping, no mechanical traction due to retrolistheis Trial MET and pelvic realignment exercises Next Visit Focus/Plan Next Note Type Treatment Note Next Visit Plan latex and tape allergy Progress to standing core. lifting, carrying mechanics w/ hip hinge and bracing. lateral lunge. cont with hip strength with limited hip flex ROM- trial prone hip ext over table, leg press vs squat/STS Cont with back and hip strengthening: resisted stepping vs standing hip abd/ ext, seated hip abduction in < 90 deg hip flexion, TrA and core bracing into flexion, flexion biased core
--- NOTE | 2024-05-05 12:34 | PT.OTN ---
Current Diagnoses Pain in right hip (05/05/24) Stiffness of right hip, not elsewhere classified (05/05/24) Stiffness of other specified joint, not elsewhere classified (05/05/24) Low back pain, unspecified (05/05/24) Other lack of coordination (05/05/24) Weakness (05/05/24) Other sprain of right hip, initial encounter (05/05/24) Physical Therapy Treatment Note PT-OP-A Visit Information Start: 03/10/24 08:05 Freq: Status: Active Protocol: Document 05/05/24 08:14 AB (Rec: 05/05/24 12:34 AB [id number]) Out-Patient Physical Therapy Visit Information Visit Information Visit Type Treatment Note Visit Note 22 visits total latex and tape allergy Access Code [id number]: Visit Start Time 10:48 Visit Stop Time 11:32 Visit Number 12/09 Number of MODEL ARTISTS' Visits 1 Evaluation Information Evaluation Date 03/10/24 Precautions Precautions Hx R labral tear Latex and tape allergy PT-OP-B Current Condition Start: 03/10/24 08:05 Freq: Status: Active Protocol: Document 03/10/24 09:00 NM (Rec: 03/10/24 09:48 NM [id number]) Current Condition History of Current Condition Onset Date R hip 08/2023, back-chronic Current Complaints pain, weakness, limited standing/gait/stair tolerance History of Current Condition Pt presents with pain in R hip and back. Pt states that her R hip was injured on 09/06/23, she fell on her concrete stairs while carrying both groceries and son; states contorted herself to avoid hurting son. She has had imaging. She has been referred to an orthopedic surgeon but has to have 6 weeks of PT first. She had an injection in November 08 2023. States took a while to work but then states worked really well; states that wore off but not as bad as it was. Pt reports impairments in sitting time ( am worse, a few minutes), wants to lie supine initially. Pt also presents with back pain, beginning in 2007. She reports that her pain has been worse since her fall; states has always had low back issues. She reports no specific injuries; states more active with snowboarding/ skateboard. States back also worse since , ~3 years ago. Has stairs in home (up to house, basement). No imaging for back at this time. Reports sharp, shooting samurai sword when has radicular symptoms. 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 MRI of R hip: tear of anterosuperior labrum and posterior labrum, findings suggestive of mild degenerative changes of L sacroiliac joint Treatment Goals Patient/Caregiver Goals reduce pain PT-OP-C Subjective Start: 03/10/24 08:05 Freq: Status: Active Protocol: Document 05/05/24 08:14 AB (Rec: 05/05/24 12:34 AB [id number]) OP-PT Subjective Patient Comments Patient Comments Patient reports she is feeling pretty bad today, had to nacho 3 y.o. on bike yesterday . Patient rates pain 6-7/10 right hip. Patient reports no problems with HEP, been pretty good. PT-OP-F Manual Assessment Start: 03/10/24 08:05 Freq: Status: Active Protocol: Document 03/10/24 09:00 NM (Rec: 03/10/24 11:27 NM [id number]) Manual Assessments Soft Tissue Assessment Soft Tissue Mobility Assessment Tightness of R piriformis and lumbar paraspinals. Increased tightness of R hip flexors Joint Mobility Assessment Joint Mobility Assessment Palpable and audible clicking and catching of R hip with end range hip flexion/rotation. Hypermobility of lumbar spine with PA springing, hypomobility of SIJ B PT-OP-G Mobility & Gait Start: 03/10/24 08:05 Freq: Status: Active Protocol: Document 03/10/24 09:00 NM (Rec: 03/10/24 11:27 NM [id number]) OP Gait Assessment Gait Gait Assistance Required: Independent Distance (Feet) 150 Gait Deviations General Gait Pattern Antalgic,Flexed Trunk Comments Gait Comments Decreased R stance time, slight forward trunk lean with R stance. Stiffer R ankle by observation PT-OP-J Posture/Palpation/Skin Start: 03/10/24 08:05 Freq: Status: Active Protocol: Document 03/10/24 09:00 NM (Rec: 03/10/24 11:27 NM [id number]) Posture Evaluation Position Standing Head/C-Spine Posture Forward Head L-Spine Posture Decreased Lordosis Pelvis Posture (R) Rotated Anterior,(L) Iliac Crest Superior Weight Distribution Weight Shifted Left Hip Posture (L) Externally Rotated,(R) Externally Rotated Knee Posture (L) Genu Valgus,(R) Genu Valgus Palpation Assessment Location lumbar spine Palpation Details Tightness of thoracolumbar paraspinals, QL Muscle guarding at low back Tenderness along PSIS (R>L), SIJ (R>L), lower lumbar spinous processes especially nrear L4-5-S1-2 R hip Palpation Details Tenderness along R groin, carlene-lateral hip anterior to greater trochanter Tenderness and tightness along piriformis B PT-OP-K Range of Motion Start: 03/10/24 08:05 Freq: Status: Active Protocol: Document 04/08/24 08:18 NM (Rec: 04/08/24 09:02 NM [id number]) Lumbar Spine Range of Motion Lumbar Spine Active Percentage Flexion 60 Extension 10 Rotation Left 75 Rotation Right 50 Lateral Flexion Left 25 Lateral Flexion Right 50 Comments pain w/ flexion, ext ++, lateral flexion (R) and rot (R ) 04/08/24: 75% flex, 75% B lateral flexion (L worse) Hip Goniometric Range of Motion Hip Right Flexion w/Knee Flexed 105 Internal Rotation 32 External Rotation 30 Comments 28 ER, pain w/ both IR > ER, flexion 04/08/24: see above Left Flexion w/Knee Flexed 107 Internal Rotation 30 External Rotation 30 Comments pain in low back with flexion PT-OP-L Special Tests Start: 03/10/24 08:05 Freq: Status: Active Protocol: Document 03/10/24 09:00 NM (Rec: 03/10/24 09:48 NM [id number]) Special Tests Lumbar Spine Special Tests Traction Test Results + Comments slight symptom relief Straight Leg Raise Test Results - Mcfadden/quadrant Test Results + Comments local pain B Hip Special Tests Stinchfield Resisted Hip Flexion Test Results + Log Roll Test Test Results + Scour Test Results + FADIR Test Results + JUAN A Test Results + PT-OP-M Strength Start: 03/10/24 08:05 Freq: Status: Active Protocol: Document 04/08/24 08:18 NM (Rec: 04/08/24 09:02 NM [id number]) Trunk Strength Trunk Manual Muscle Testing Flexion 4- Good- Extension 4- Good- Rotation Left 4- Good- Rotation Right 4- Good- Lateral Flexion Left 4- Good- Lateral Flexion Right 4- Good- Comments No pain with resisted testing PT-OP-Q Treatments Start: 03/10/24 08:05 Freq: Status: Active Protocol: Document 05/05/24 08:14 AB (Rec: 05/05/24 12:34 AB [id number]) Therapeutic Exercises Supine Exercises piriformis Supine Exercise Name from hooklying HEP Side bilateral Reps/Minutes 60 seconds X 2 right X 1 left Comments Verbal cues hip flexor stretch Supine Exercise Name madie stretch- HEP Side bilateral Reps/Minutes 60 X2 right X 1 left Comments post manual Sitting Exercises seated hip abd with band Sitting Exercise Name HEP Side bilateral Resistance level latex free band Reps/Minutes X1 for one minute Comments verbal cues marching on ball Sitting Exercise Name seated on ball w/ slight hip abd Reps/Minutes X10 Comments monitored for ability to hold ball stable Standing Exercises sit to stand with band Side bilateral Resistance level 5 latex free Reps/Minutes 2X10 Comments monitored for pain, Pt ed pain rules hip extension Standing Exercise Name leaning on counter height mat with abdominal bracing Side bilateral Reps/Minutes X10 Comments Verbal and visual cues for position/direc mvt and vc for bracing Manual Therapy Treatment Consent Patient gave verbal consent for manual Yes treatment Soft Tissue Mobilization R hip Body Location hip flexors, glutes Mobilization Type Cross-Friction,Rolling, Strumming Intensity/Depth Moderate Body Position Sidelying Comments and hooklying also self STM with racquet ball Joint Mobilizations right hip Direction inf Reps/Duration 3X10 PT-OP-T Assessment and Plan Start: 03/10/24 08:05 Freq: Status: Active Protocol: Document 05/05/24 08:14 AB (Rec: 05/05/24 12:34 AB [id number]) Physical Therapy Assessment Goals 4 Impairment pain with sitting, standing, lifting Short Term Goal (STG) Pt will be educated on correct body mechanics during lifting and ergonomics in sitting/ standing in order to improve pain symptom management 04/08/24: pt educated on mechanics STG Duration 6 week Newscast Director Goal (LTG) Pt will report that she is able to sit >1 hour without increase in R hip pain in order to be able to perform work-related tasks and play with her son 04/24/24: pt can sit >1 hour before R hip pain occurs LTG Duration 8 weeks MET 3 Impairment HEP compliance- not performing an exercise program Impairment . Newscast Director Goal (LTG) Pt will report compliance with HEP at least 3x/wk in order to maximize progression with PT and transition to maintenance program after discharge from PT LTG Duration 8 weeks 2 Impairment R hip strength impaired Impairment . Newscast Director Goal (LTG) Pt will increase R hip strength globally to 4/5 except for hip flexion at least 4-/5 in order to demonstrate improved strength for stairs, gait, transfers 1 Impairment trunk strength 3+/5 Impairment . Short Term Goal (STG) Pt will be educated on core bracing strategies and demonstrate core bracing in at least 5/10 reps in order to demonstrate improved proximal stability during ADLs, standing/gait 04/08/24: able to perform in quadruped and supine; progressing to standing; at least 5/10 reps for all STG Duration 4 weeks MET Newscast Director Goal (LTG) Pt will improve global trunk strength to at least 4/10 without increase in low back pain symptoms in order to demonstrate improved proximal stability during ADLs, standing/gait, and when interacting with her son LTG Duration 8 weeks Assessment Summary Assessment Patient rates pain 3/10 end of session left hip. Good neeru to sit to stand with band 2X10 and increased to level 5 band for seated hip abd with band. Physical Therapy Plan Frequency and Duration Frequency of Treatment 2x/Week Duration of treatment (weeks) 8 Plan of Care Start Date 03/10/24 Plan of Care End Date 05/09/24 Next Visit Focus/Plan Next Note Type Treatment Note Next Visit Plan latex and tape allergy Progress to standing core. lifting, carrying mechanics w/ hip hinge and bracing. lateral lunge. cont with hip strength with limited hip flex ROM- leg press vs Cont with back and hip strengthening: resisted stepping vs standing hip abd/ ext, TrA and core bracing into flexion, flexion biased core ( marching on ball in clinic)
--- NOTE | 2024-05-19 09:11 | PT.OPDS ---
Current Diagnoses Pain in right hip (05/05/24) Stiffness of right hip, not elsewhere classified (05/05/24) Stiffness of other specified joint, not elsewhere classified (05/05/24) Low back pain, unspecified (05/05/24) Other lack of coordination (05/05/24) Weakness (05/05/24) Other sprain of right hip, initial encounter (05/05/24) Visit Care Team Role Provider Type DEBO Brown Family Provider Non-Staff Primary Care Provider Specialty: Family Practice Address: [address], [facility], [place], [address] Email: Chris Jimenez DO Attending Provider Non-Staff Referring Provider Specialty: Orthopedic Surgery Address: [address] [place], [address] Email: Visit Number Visit Number 12/09 Discharge Summary PT-OP-B Current Condition Start: 03/10/24 08:05 Freq: Status: Active Protocol: Document 03/10/24 09:00 NM (Rec: 03/10/24 09:48 NM [id number]) Current Condition History of Current Condition Onset Date R hip 08/2023, back-chronic Current Complaints pain, weakness, limited standing/gait/stair tolerance History of Current Condition Pt presents with pain in R hip and back. Pt states that her R hip was injured on 09/06/23, she fell on her concrete stairs while carrying both groceries and son; states contorted herself to avoid hurting son. She has had imaging. She has been referred to an orthopedic surgeon but has to have 6 weeks of PT first. She had an injection in November 08 2023. States took a while to work but then states worked really well; states that wore off but not as bad as it was. Pt reports impairments in sitting time ( am worse, a few minutes), wants to lie supine initially. Pt also presents with back pain, beginning in 2007. She reports that her pain has been worse since her fall; states has always had low back issues. She reports no specific injuries; states more active with snowboarding/ skateboard. States back also worse since , ~3 years ago. Has stairs in home (up to house, basement). No imaging for back at this time. Reports sharp, shooting samurai sword when has radicular symptoms. 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 MRI of R hip: tear of anterosuperior labrum and posterior labrum, findings suggestive of mild degenerative changes of L sacroiliac joint Treatment Goals Patient/Caregiver Goals reduce pain PT-OP-C Subjective Start: 03/10/24 08:05 Freq: Status: Active Protocol: Document 05/05/24 08:14 AB (Rec: 05/05/24 12:34 AB [id number]) OP-PT Subjective Patient Comments Patient Comments Patient reports she is feeling pretty bad today, had to nacho 3 y.o. on bike yesterday . Patient rates pain 6-7/10 right hip. Patient reports no problems with HEP, been pretty good. PT-OP-F Manual Assessment Start: 03/10/24 08:05 Freq: Status: Active Protocol: Document 03/10/24 09:00 NM (Rec: 03/10/24 11:27 NM [id number]) Manual Assessments Soft Tissue Assessment Soft Tissue Mobility Assessment Tightness of R piriformis and lumbar paraspinals. Increased tightness of R hip flexors Joint Mobility Assessment Joint Mobility Assessment Palpable and audible clicking and catching of R hip with end range hip flexion/rotation. Hypermobility of lumbar spine with PA springing, hypomobility of SIJ B PT-OP-G Mobility & Gait Start: 03/10/24 08:05 Freq: Status: Active Protocol: Document 03/10/24 09:00 NM (Rec: 03/10/24 11:27 NM [id number]) OP Gait Assessment Gait Gait Assistance Required: Independent Distance (Feet) 150 Gait Deviations General Gait Pattern Antalgic,Flexed Trunk Comments Gait Comments Decreased R stance time, slight forward trunk lean with R stance. Stiffer R ankle by observation PT-OP-J Posture/Palpation/Skin Start: 03/10/24 08:05 Freq: Status: Active Protocol: Document 03/10/24 09:00 NM (Rec: 03/10/24 11:27 NM [id number]) Posture Evaluation Position Standing Head/C-Spine Posture Forward Head L-Spine Posture Decreased Lordosis Pelvis Posture (R) Rotated Anterior,(L) Iliac Crest Superior Weight Distribution Weight Shifted Left Hip Posture (L) Externally Rotated,(R) Externally Rotated Knee Posture (L) Genu Valgus,(R) Genu Valgus Palpation Assessment Location lumbar spine Palpation Details Tightness of thoracolumbar paraspinals, QL Muscle guarding at low back Tenderness along PSIS (R>L), SIJ (R>L), lower lumbar spinous processes especially nrear L4-5-S1-2 R hip Palpation Details Tenderness along R groin, carlene-lateral hip anterior to greater trochanter Tenderness and tightness along piriformis B PT-OP-K Range of Motion Start: 03/10/24 08:05 Freq: Status: Active Protocol: Document 04/08/24 08:18 NM (Rec: 04/08/24 09:02 NM [id number]) Lumbar Spine Range of Motion Lumbar Spine Active Percentage Flexion 60 Extension 10 Rotation Left 75 Rotation Right 50 Lateral Flexion Left 25 Lateral Flexion Right 50 Comments pain w/ flexion, ext ++, lateral flexion (R) and rot (R ) 04/08/24: 75% flex, 75% B lateral flexion (L worse) Hip Goniometric Range of Motion Hip Right Flexion w/Knee Flexed 105 Internal Rotation 32 External Rotation 30 Comments 28 ER, pain w/ both IR > ER, flexion 04/08/24: see above Left Flexion w/Knee Flexed 107 Internal Rotation 30 External Rotation 30 Comments pain in low back with flexion PT-OP-L Special Tests Start: 03/10/24 08:05 Freq: Status: Active Protocol: Document 03/10/24 09:00 NM (Rec: 03/10/24 09:48 NM [id number]) Special Tests Lumbar Spine Special Tests Traction Test Results + Comments slight symptom relief Straight Leg Raise Test Results - Mcfadden/quadrant Test Results + Comments local pain B Hip Special Tests Stinchfield Resisted Hip Flexion Test Results + Log Roll Test Test Results + Scour Test Results + FADIR Test Results + JUAN A Test Results + PT-OP-M Strength Start: 03/10/24 08:05 Freq: Status: Active Protocol: Document 04/08/24 08:18 NM (Rec: 04/08/24 09:02 NM [id number]) Trunk Strength Trunk Manual Muscle Testing Flexion 4- Good- Extension 4- Good- Rotation Left 4- Good- Rotation Right 4- Good- Lateral Flexion Left 4- Good- Lateral Flexion Right 4- Good- Comments No pain with resisted testing PT-OP-T Assessment and Plan Start: 03/10/24 08:05 Freq: Status: Active Protocol: Document 05/19/24 09:02 NM (Rec: 05/19/24 09:11 NM [id number]) Physical Therapy Assessment Goals 4 Impairment pain with sitting, standing, lifting Short Term Goal (STG) Pt will be educated on correct body mechanics during lifting and ergonomics in sitting/ standing in order to improve pain symptom management 04/08/24: pt educated on mechanics STG Duration 6 week 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 Fdc Goal (LTG) Pt will report compliance with HEP at least 3x/wk in order to maximize progression with PT and transition to maintenance program after discharge from PT LTG Duration 8 weeks 2 Impairment R hip strength impaired Impairment . Fdc Goal (LTG) Pt will increase R hip strength globally to 4/5 except for hip flexion at least 4-/5 in order to demonstrate improved strength for stairs, gait, transfers 1 Impairment trunk strength 3+/5 Impairment . Short Term Goal (STG) Pt will be educated on core bracing strategies and demonstrate core bracing in at least 5/10 reps in order to demonstrate improved proximal stability during ADLs, standing/gait 04/08/24: able to perform in quadruped and supine; progressing to standing; at least 5/10 reps for all STG Duration 4 weeks MET Fdc Goal (LTG) Pt will improve global trunk strength to at least 4/10 without increase in low back pain symptoms in order to demonstrate improved proximal stability during ADLs, standing/gait, and when interacting with her son LTG Duration 8 weeks Assessment Summary Assessment Pt has been seen x6 visits following evaluation in February 2024 for R hip and back pain. Pt has progress well toward goals, meeting several STGs and LTGs. However , she did not meet all PT goals and unable to assess as pt canceled last appt within plan of care, where pt was to discharge from PT. At time of last progress note, pt was demonstrating improvements in ability to perform ADLs/IADLs; however, she still had pain in R hip. Pt has been assessed by a mission assessment specialist during PT plan of care and is planning to follow up again in 2024. Physical Therapy Plan Frequency and Duration Frequency of Treatment 2x/Week Duration of treatment (weeks) 8 Plan of Care Start Date 03/10/24 Plan of Care End Date 05/09/24 Therapeutic Interventions Therapeutic Interventions Balance Training,Gait Training ,Home Exercise Program,Joint Mobilizations,Manual Therapy, Neuromuscular Re-education, Orthotic/Prosthetic Management ,Patient/Caregiver Education, Self-Care/Home Management, Sensory Integration,Soft Tissue Mobilization, Therapeutic Activities, Therapeutic Exercises Modalities Cold Pack/Ice Massage,Electric Stimulation,Hot Packs, Ultrasound,Vasopneumatic Devices Other Therapeutic Interventions No taping, no mechanical traction due to retrolistheis Trial MET and pelvic realignment exercises Discharge Physical Therapy Discharge Reasons No Longer Attending PT Discharge Comments Pt attended x6 appt following evaluation. Plan of care and pt did not attend last appt due to illness. Pt has been compliant with HEP. Per last progress note, pt reports improvements in ADLs/ IADLs due to R hip and back; however, still does report pain and mild limitations. PT and pt had discussed discharge from PT at end of plan of care in previous sessions as pt was progressing well. Pt is also following up with mission assessment specialist in 2024 to determine next steps for pt . Discharge from PT, will need new referral to return to PT in future. Next Visit Focus/Plan Next Note Type Discharge Summary Next Visit Plan discharge from PT
== END 2024-05-29 14:41 | disposition home or self-care (01) ==
LOC: PHYS 10:45
PROVIDERS: Family Provider Registered Nurse; PCP Registered Nurse; Referring Provider Orthopaedic Surgery; Visit Provider Orthopaedic Surgery
DX: S73.191A Other sprain of right hip, initial encounter (principal); M54.50 Low back pain, unspecified; M25.551 Pain in right hip; M25.651 Stiffness of right hip, not elsewhere classified; M25.69 Stiffness of other specified joint, not elsewhere classified; R53.1 Weakness; R27.8 Other lack of coordination
CPT/HCPCS: 97110; 97140; 97161; 97530

== ENCOUNTER → 2024-09-16 16:35 | Outpatient (CLI) | payer OTHER, SELFPAY ==
--- NOTE | 2024-09-16 16:41 | DI.RAD.S_ITS ---
PROCEDURE: XR FOOT 2V WB RIGHT INDICATIONS: RIGHT FOOT PAIN TECHNIQUE: 3 weight-bearing views acquired of the foot. COMPARISON: None. FINDINGS: Bones: There is normal bony alignment with weight bearing. No fractures or dislocations. No suspicious bony lesions. Soft tissues: No tibiotalar joint effusion. No suspicious soft tissue calcifications. IMPRESSION: Normal right foot radiographs Approved by: Stephan Montenegro M.D. on 09/17/2024 at 17:09
== END ==
PROVIDERS: Family Provider Registered Nurse; PCP Registered Nurse; Referring Provider Registered Nurse; Visit Provider Registered Nurse
DX: M79.671 Pain in right foot (principal)
CPT/HCPCS: 73620

== ENCOUNTER → 2024-11-03 13:10 | Outpatient (CLI) | payer OTHER, SELFPAY ==
--- NOTE | 2024-11-03 13:11 | DI.MRI.S_ITS ---
PROCEDURE: MR LUMBAR SPINE WO CON INDICATIONS: Chronic midline lower back pain TECHNIQUE: Noncontrast sagittal T1 spin echo and T2 fast echo, sagittal STIR, and T2 fast spin echo through the lumbar spine. In cases with scoliosis, additional coronal T2 fast spin echo may be performed. COMPARISON: [facility], CR, XR LUMBAR SPINE 2-3V, 10/31/2021, 11:42. FINDINGS: Image quality: Diagnostic. Alignment and Curvature: There is normal bony alignment. Bone Marrow: Marrow is of normal overall signal. No acute vertebral body compression fractures. Spinal Cord: Conus medullaris terminates at the L1 level. Visualized cord demonstrates normal signal and size. Paraspinous Soft Tissues: No paravertebral masses. T11-T12: [id number] loss of disc height and disc signal can be seen. Mild disc bulge is seen, with a central disc osteophyte protrusion. No neural foraminal narrowing can be seen. There is hrgq-[id number] central canal narrowing seen, with mild mass effect upon the ventral spinal cord. T12-L1: Mild loss of disc height is seen. Loss of disc signal is seen. Mild generalized disc bulge is seen. There is a superimposed central disc protrusion. No significant neural foraminal or central canal narrowing can be seen. L1-L2: Normal appearance. L2-L3: Normal appearance. L3-L4: The disc height and disk signal are well-preserved. Mild generalized disc bulge is seen. There is [id number] right-sided and minimal left-sided neural foraminal narrowing. No significant central canal narrowing is seen. L4-L5: The disc height and disk signal are well-preserved. Mild generalized disc bulge is seen. Mild facet joint hypertrophy is seen. Mild bilateral neural foraminal narrowing is seen. No central canal narrowing is seen. L5-S1: Mild loss of disc height is seen. Loss of disc signal is seen. Mild generalized disc bulge is seen. There is a focal central disc protrusion. There is a focal annular fissure seen posteriorly. Mild facet joint hypertrophy is seen. Moderate bilateral neural foraminal narrowing can be seen, left worse than right. Mild central canal narrowing is seen. IMPRESSION: Multiple levels of degenerative change can be seen, which are worst at L5-S1 and at T11-T12. Dictated by: Thiago Kellogg M.D. on 11/03/2024 at 15:10 Approved by: Thiago Kellogg M.D. on 11/03/2024 at 15:14
== END ==
LOC: MRI 13:10
PROVIDERS: Family Provider Registered Nurse; PCP Registered Nurse; Referring Provider Family Medicine; Visit Provider Family Medicine
DX: M54.41 Lumbago with sciatica, right side (principal); M54.42 Lumbago with sciatica, left side; M47.814 Spondylosis without myelopathy or radiculopathy, thoracic region; M47.817 Spondylosis without myelopathy or radiculopathy, lumbosacral region; M47.816 Spondylosis without myelopathy or radiculopathy, lumbar region; G89.29 Other chronic pain
CPT/HCPCS: 72148